=== PATIENT | male | born 1965 | race Caucasian/White ===

== ENCOUNTER 2022-07-08 14:09 | Emergency (ER) | payer MEDICARE, OTHER, SELFPAY ==
--- NOTE | ~2022-07-08 | XR_ITS ---
EXAMINATION: XR CHEST CLINICAL INFORMATION: Shortness of breath. COMPARISON: Chest CTA and radiographs dated 10/04/2017. TECHNIQUE: 2 views of the chest were obtained. FINDINGS: There is generalized hyperinflation. No focal mass or pleural effusions. The heart and mediastinal structures are unremarkable. XR/XR chest 2V IMPRESSION: COPD No acute cardiopulmonary process.
[2022-07-08 14:14] VITALS: BP 111/75; PULSE 85; RESP 16; TEMP 36.1; O2SAT 99; BMI 19.9
--- NOTE | 2022-07-08 14:14 | ED.GENADULT ---
HPI - General Adult General Chief complaint: Upper Respiratory Symptoms <AALIYAH Phan - Last Filed: 07/08/22 14:15> Stated complaint: diff breathing, throat pain? <AALIYAH Phan - Last Filed: 07/08/22 14:15> Time Seen by Provider: 07/08/22 14:20 <AALIYAH Phan - Last Filed: 07/08/22 14:15> History of Present Illness HPI narrative: pt co cough productive of sputum body aches fever runny nose and short of breathe for 1 week, as well as feeling his chest is congested He is not short of breath at this time, he has no chest pain no palpitations no dizziness no fainting no feeling faint no diaphoresis no nausea no vomiting no sore throat no difficulty swallowing no headache no abdominal pain no diarrhea no skin rash <AALIYAH Garcia - Last Filed: 07/09/22 11:58> Related Data Home medications: Previous Rx's Medication Instructions Recorded doxycycline hyclate 100 mg capsule 100 mg PO BID 7 days #14 caps 07/08/22 <AALIYAH Phan - Last Filed: 07/08/22 14:15> Allergies/adverse reactions: Allergies Allergy/AdvReac Type Severity Reaction Status Date / Time naproxen [From NAPROSYN] Allergy Severe STOMACH Unverified 01/08/20 14:46 UPSET <AALIYAH Phan - Last Filed: 07/08/22 14:15> [facility] Past Medical History Source: nursing notes reviewed <AALIYAH Garcia - Last Filed: 07/09/22 11:58> Social History Social History: Social History Advance Directives: No Advance Directives Information Provided: Yes <AALIYAH Phan - Last Filed: 07/08/22 14:15> Physical Exam ED Vital Signs: Vital Signs - 24 hr 07/08/22 14:14 Temperature 96.9 F Pulse Rate 85 Respiratory Rate 16 Blood Pressure 111/75 Pulse Oximetry 99 Oxygen Delivery Method Room Air BMI result Body Mass Index 19.9 <AALIYAH Phan - Last Filed: 07/08/22 14:15> Vital Signs - 24 hr 07/08/22 14:14 Temperature 96.9 F Pulse Rate 85 Respiratory Rate 16 Blood Pressure 111/75 Pulse Oximetry 99 Oxygen Delivery Method Room Air BMI result Body Mass Index 19.9 <AALIYAH aGrcia Last Filed: 07/09/22 11:58> General appearance no acute distress comfortable relaxed cooperative speaking full sentences no respiratory distress Eyes no redness or discharge The sinuses are nontender The pharynx is clear without redness swelling or exudate, voice is normal membranes are moist Neck is supple Chest is clear to auscultation with full symmetric equal breath sounds no adventitious sounds Heart no murmur Abdomen soft nontender Extremities no edema no rash <AALIYAH Garcia Last Filed: 07/09/22 11:58> Course Course Course Narrative: RME performed by Jennifer Flores PA-C. Patient is a 57 year old male presenting to the emergency department with a cough, fever, body aches, and feeling generally unwell. Swabs and CXR ordered. Patient placed back in the waiting room pending room availability and results. <AALIYAH Phan Last Filed: 07/08/22 14:15> RME performed by Jennifer Flores PA-C. Patient is a 57 year old male presenting to the emergency department with a cough, fever, body aches, and feeling generally unwell. Swabs and CXR ordered. Patient placed back in the waiting room pending room availability and results. well appearing pt speaking fuull sentences, vitals nml, resp 16 co cough and sob for 1 week, no sob now chest x negative, normal, covid, flu and strep all negative well appearing pt discharged dx bronchitis <AALIYAH Garcia Last Filed: 07/09/22 11:58> Medications Administered Discontinued Medications Generic Name Dose Route Start Last Admin Trade Name Freq PRN Reason Stop Dose Admin Doxycycline Monohydrate 100 mg 07/08/22 15:40 07/08/22 15:45 Doxycycline Monohydrate 100 Mg Capsule PO 07/08/22 15:41 100 mg ONCE ONE Administration <AALIYAH Phan Last Filed: 07/08/22 14:15> Medications Administered Discontinued Medications Generic Name Dose Route Start Last Admin Trade Name Freq PRN Reason Stop Dose Admin Doxycycline Monohydrate 100 mg 07/08/22 15:40 07/08/22 15:45 Doxycycline Monohydrate 100 Mg Capsule PO 07/08/22 15:41 100 mg ONCE ONE Administration <AALIYAH Garcia Last Filed: 07/09/22 11:58> Medical Decision Making Lab Data Labs: Lab Results 07/08/22 07/08/22 07/08/22 Range/Units 14:24 14:24 14:24 COVID-19 (MELL) Negative (Negative) COVID-19 Clin Com See Note Influenza Type A (RONI) Negative (Negative) Influenza Type B (RONI) Negative (Negative) Influenza A & B Note See Note S. pyogenes GrpA RONI Negative (Negative) <AALIYAH Phan - Last Filed: 07/08/22 14:15> Lab Results 07/08/22 07/08/22 07/08/22 Range/Units 14:24 14:24 14:24 COVID-19 (MELL) Negative (Negative) COVID-19 Clin Com See Note Influenza Type A (RONI) Negative (Negative) Influenza Type B (RONI) Negative (Negative) Influenza A & B Note See Note S. pyogenes GrpA RONI Negative (Negative) <AALIYAH Garcia - Last Filed: 07/09/22 11:58> Discharge Plan Discharge Clinical Impression: Bronchitis <AALIYAH Phan - Last Filed: 07/08/22 14:15> Patient Disposition: Home, Self-Care <AALIYAH Phan - Last Filed: 07/08/22 14:15> Additional Instructions: chest x ray was normal, covid and flu tests negative physical exam and vital signs were all normal we are treating with doxycycline antibiotic for bronchitis return any time for any worse condition, worsening shortness of breathe or chest pain, any concerns follow with your dr next week if not better <AALIYAH Phan - Last Filed: 07/08/22 14:15> Prescriptions: New doxycycline hyclate 100 mg capsule 100 mg PO BID 7 Days Qty: 14 0RF <AALIYAH Phan - Last Filed: 07/08/22 14:15> Interventions: ED Discharge Assessment Last Done: 07/08/22 15:47 <AALIYAH Phan Last Filed: 07/08/22 14:15> Discharge Date/Time: 07/08/22 15:47 <AALIYAH Phan - Last Filed: 07/08/22 14:15>
[2022-07-08 14:54] LABS: IDNOW Serial# 6674DD1D; Strep A Nucleic Acid Negative (Negative)
[2022-07-08 14:59] LABS: COVID-19 Test Negative (Negative); IDNOW Serial# 08D9AD1C
[2022-07-08 15:02] LABS: IDNOW Serial# 9DB6401D; Influenza A Negative (Negative); Influenza B2 Negative (Negative)
[2022-07-08] MEDS: Doxycycline Monohydrate 100 MG CAPSULE PO (15:45)
== END 2022-07-08 15:47 | disposition home or self-care (01) ==
PROVIDERS: Physician Assistant Medical; Emergency Provider Emergency Medicine; PCP Pediatrics
DX: J40 Bronchitis, not specified as acute or chronic (principal); Z20.822 Contact with and (suspected) exposure to COVID-19
CPT/HCPCS: 71046; 87502; 87635; 87651; 99282; 99283

== ENCOUNTER 2022-11-22 16:58 | Emergency (ER) | payer MEDICARE, MEDICAID, SELFPAY ==
--- NOTE | 2022-11-22 17:16 | ED.GENADULT ---
HPI - General Adult General Chief complaint: Extremity Injury, Upper Stated complaint: L hand inj, tendon inj Time Seen by Provider: 11/22/22 17:16 Source: patient Mode of arrival: ambulatory Limitations: no limitations History of Present Illness HPI narrative: Patient is a 57 year old assigned male at with a history of a seizure disorder presenting to the emergency department today with left 4th finger sticking. Patient states that when he wakes up his left 4th finger stuck in a flexed position. Patient states that he can stretch it back out and it stays out throughout the rest of the day. Patient denies any dizziness, lightheadedness, abdominal pain, nausea, vomiting, fever, chills, blurry vision, double vision, loss of vision, chest pain, difficulty breathing, shortness of breath, back pain, night sweats, pain with urination, increased urinary frequency, increased urinary urgency, blood in his urine or stool, syncope or a near syncopal episode, recent trauma or falls, bowel incontinence, bladder incontinence, bowel retention, bladder retention, or any other complaints at this time. Onset (ago): week(s) Location: left (4th finger) Radiation: non-radiation Severity: mild Severity scale (1-10): 3 Quality: aching and dull Pain Consistency: now resolved Relieving factors: none Exacerbating factors: none Associated symptoms: denies other symptoms Treatments prior to arrival: none Related Data Previous Rx's Medication Instructions Recorded doxycycline hyclate 100 mg capsule 100 mg PO BID 7 days #14 caps 07/08/22 prednisone 20 mg tablet 20 mg PO DAILY 7 days #7 tabs 11/22/22 Allergies Allergy/AdvReac Type Severity Reaction Status Date / Time naproxen [From NAPROSYN] Allergy Severe STOMACH Unverified 01/08/20 14:46 UPSET Review of Systems Constitutional: Constitutional: Reports no additional constitutional complaints, Denies chills, Denies fever(s) and Denies night sweats Eyes: Eyes: Reports no additional eye complaints, Denies blurry vision, Denies change in vision, Denies diplopia, Denies eye discharge, Denies loss of vision and Denies eye pain ENT: Denies dizziness Cardiovascular: Cardiovascular: Reports no additional cardiovascular complaints, Denies chest pain, Denies lightheadedness, Denies Loss of Consciousness and Denies dyspnea Respiratory: Respiratory: Reports no additional respiratory complaints and Denies dyspnea Gastrointestinal: Gastrointestinal: Reports no additional gastrointestinal complaints, Denies abdominal pain, Denies melena, Denies hematochezia, Denies change in bowel habits and Denies change in stool character Genitourinary: Genitourinary: Reports no additional male genitourinary complaints, Denies hematuria, Denies oliguria, Denies difficulty urinating, Denies dysuria, Denies urinary frequency, Denies urinary hesitancy, Denies urinary incontinence and Denies urinary urgency Musculoskeletal: Musculoskeletal: Reports no additional musculoskeletal complaints, Denies numbness and Denies tingling Comments: intermittent sticking of the left 4th finger Neurologic: Denies dizziness, Denies loss of vision, Denies numbness and Denies tingling Psychiatric: Psychiatric: Reports no additional psychiatric complaints Endocrine: Endocrine: Reports no additional endocrine complaints Hematologic/Lymphatic: Hematologic/Lymphatic: Reports no additional hematologic/lymphatic complaints Allergic/Immunologic: Allergic/Immunologic: Reports no additional allergic/immunologic complaints PMFSH Past Medical History Attestation statement: The following information was validated with the patient. Source: old records reviewed and nursing notes reviewed Social History Social History Advance Directives: No Advance Directives Information Provided: Yes Physical Exam ED Vital Signs: BMI result Body Mass Index 20.1 Const General: cooperative, no acute distress, alert and awake Nutritional Appearance: well nourished Orientation/consciousness: patient oriented x3 Limitations: no limitations HENMT Head: Yes normal to inspection and Yes atraumatic Ears: hearing grossly normal bilaterally and external ears normal General nose exam: Normal external nose present, no nasal discharge noted and no epistaxis Face and sinus: Yes normal facial exam, No abrasion and No laceration Mouth: Normal oral and palatal mucosa present, no drooling and no muffled voice Eyes General: appearance normal, both eyes and all related structures Periorbital: periorbital findings normal Eyelids: Yes eyelids normal Conjunctivae: conjunctivae normal Pupils: Equal, round and reactive pupils present EOM: EOMs intact bilaterally Neck Neck: Yes normal visual inspection, Yes full ROM and Yes no lymphadenopathy Chest Chest palpation & inspection: normal inspection of the chest Resp Effort & Inspection: normal respiratory effort and able to speak in complete sentences GI Inspection: Yes normal to inspection Neuro General: patient oriented x3 and moves all extremities Cranial nerves: Yes Equal, round and reactive pupils present Cognition (Neuro): normal cognition Motor exam (neuro): 5/5 motor strength present throughout Sensory Exam: Normal double simultaneous stimulation for sensation Coordination: [id number] test normal Extrem General: Yes normal to inspection, Yes full ROM and Yes capillary refill normal Psych Appearance: grossly normal Mental Status: mental status grossly normal Affect: normal affect Attitude: cooperative Thought process: Normal thought process present Thought content: Normal thought content present Insight: Good insight present (Psych) Medical Decision Making Medical Decision Making MDM Narrative: Patient is a 57 year old assigned male at with a history of seizure disorder presenting to the emergency department today with intermittent left 4th finger sticking. Patient's physical exam was unremarkable. I explained my physical exam findings to the patient. I answered all questions asked by the patient. I stressed the importance of the patient taking his medication as prescribed. I stressed the importance of the patient following up with his primary care provider and an orthopedic provider. I stressed the importance of the patient returning to the emergency department immediately if his symptoms were to worsen or if he were to develop any dizziness, shortness of breath, difficulty breathing, chest pain, blurry vision, loss of vision, nausea, vomiting, abdominal pain, fever, chills, back pain, or any other complaints. Patient verbalized agreement and understanding with this treatment plan and discharge. Differential Diagnosis Differential Diagnoses: The differential diagnosis associated with the presentation includes Trigger finger Tendonitis Prescription Management I considered prescription management with: Other (patient prescribed an oral steroid.) Discharge Plan Discharge Clinical Impression: Trigger finger Patient Disposition: Home, Self-Care Instructions: Trigger Finger (ED) Additional Instructions: Follow up with your primary care provider and an orthopedic provider. Return to the emergency department immediately if your symptoms worsen or if you develop any dizziness, shortness of breath, difficulty breathing, chest pain, blurry vision, loss of vision, nausea, vomiting, abdominal pain, fever, chills, back pain, or any other complaints. Prescriptions: New prednisone 20 mg tablet 20 mg PO DAILY 7 Days Qty: 7 0RF No Action doxycycline hyclate 100 mg capsule 100 mg PO BID 7 Days Qty: 14 0RF Referrals: [facility] [Provider Group] (Call to establish and follow up with an orthopedic provider.) Adair Mejias DO [Primary Care Provider] - Stand Alone Forms: Work/School Release Interventions: ED Discharge Assessment Last Done: 11/22/22 17:37 Discharge Date/Time: 11/22/22 17:38 Print Language: Vietnamese
[2022-11-22 17:34] VITALS: BMI 20.1
== END 2022-11-22 17:38 | disposition home or self-care (01) ==
LOC: HO.ED 17:33
PROVIDERS: Emergency Provider Emergency Medicine Emergency Medical Services; PCP Pediatrics
DX: M65.342 Trigger finger, left ring finger (principal)
CPT/HCPCS: 99283

== ENCOUNTER 2024-01-12 14:52 | Emergency (ER) | payer MEDICARE, MEDICAID, SELFPAY ==
--- NOTE | ~2024-01-12 | XR_ITS ---
EXAMINATION: XR CHEST CLINICAL INFORMATION: COVID with dyspnea COMPARISON: Chest radiograph 07/08/2022 TECHNIQUE: 2 views of the chest were obtained. FINDINGS: No significant abnormality is noted involving the heart, lungs, mediastinum, bony thorax or soft tissues. XR/XR chest 2V IMPRESSION: Unremarkable examination. Electronically signed by: Cole Coy MD 01/12/2024 03:55 PM EDT RP
[2024-01-12 15:06] VITALS: BP 117/67; PULSE 63; RESP 18; TEMP 36.7; O2SAT 96; BMI 21.3
--- NOTE | 2024-01-12 15:10 | ED.GENADULT ---
HPI - General Adult General Chief complaint: Upper Respiratory Symptoms Stated complaint: labored breathing, antibiotics not working Time Seen by Provider: 01/12/24 17:38 Source: patient Mode of arrival: ambulatory Limitations: no limitations History of Present Illness ED Provider: leonora VALDEZ narrative: Patient is a 58-year-old male presenting to the emergency department with complaint of ongoing cough and shortness of breath. He tested positive for COVID on 12/30 and was symptomatic for 2 days prior to that. States he was prescribed Paxlovid which he did not complete full course of. He was then started on a Z-Orville as well as Augmentin. States he has 2 days of Augmentin left to take. Feels his symptoms are not improving on any of these medications. Primary complaint is cough during the night which is preventing him from sleeping. States he has not been prescribed any cough medications and he is hesitant to purchase any [id number] cough medications as he is unsure if these will interact with his antiepileptic medications. Denies chest pain or palpitations. Denies fevers. Called PCP and was referred to the ED. MD complaint: cough Onset (ago): week(s) Treatments prior to arrival: other Related Data Previous Rx's ?Medication ?Instructions ?Recorded doxycycline hyclate 100 mg capsule 100 mg PO BID 7 days #14 caps 07/08/22 prednisone 20 mg tablet 20 mg PO DAILY 7 days #7 tabs 11/22/22 benzonatate 100 mg capsule 100 mg PO TID PRN cough #20 caps 01/12/24 Allergies Allergy/AdvReac Type Severity Reaction Status Date / Time naproxen [From NAPROSYN] Allergy Severe STOMACH Verified 01/12/24 15:09 UPSET Review of Systems Review of Systems: As per HPI. Yes all other systems are reviewed and are negative Constitutional: Constitutional: Reports as per HPI [facility] Social History Social History Advance Directives: No Advance Directives Information Provided: No Do you have a plan to hurt others: No Plan Physical Exam ED Vital Signs: Vital Signs - 24 hr 01/12/24 15:06 Temperature 98.0 F Pulse Rate 63 Respiratory Rate 18 Blood Pressure 117/67 Pulse Oximetry 96 Oxygen Delivery Method Room Air BMI result Body Mass Index 21.3 Vital signs have been reviewed and appear to be correct. Blood pressure normal. Heart rate normal. Respiratory rate normal. Temperature normal. Oxygen saturation normal. Const General: cooperative, healthy appearing and no acute distress Orientation/consciousness: oriented to person, oriented to place, oriented to time and patient oriented x3 Limitations: no limitations HENMT Head: Yes normocephalic and Yes atraumatic Ears: external ears normal General nose exam: Normal external nose present Face and sinus: Yes face symmetric Mouth: oropharynx normal and moist mucous membranes Throat: Yes uvula midline Eyes Pupils: Equal, round and reactive pupils present Neck Neck: Yes normal visual inspection and Yes supple Resp Effort & Inspection: normal respiratory effort and able to speak in complete sentences Auscultation: clear to auscultation bilaterally Cardio Rate: regular rate Rhythm: regular rhythm Heart sounds: S1 normal heart sound present and S2 normal heart sound present GI Palpation (GI): Soft to palpation and nontender Auscultation: normoactive bowel sounds General: Yes no CVA tenderness Back/Spine/Pelvis Back: no CVA tenderness Skin General skin exam: elasticity normal and turgor normal Neuro General: oriented to person, oriented to place, oriented to time, patient oriented x3, moves all extremities, no focal motor deficits and CN's II-XI intact bilaterally Cranial nerves: Yes Equal, round and reactive pupils present Cognition (Neuro): normal cognition Extrem General: Yes full ROM, Yes no pedal edema and Yes no calf tenderness Psych Mental Status: mental status grossly normal Affect: normal affect Thought process: Normal thought process present Course Course Course Narrative: This is a rapid medical exam performed by Zenaida Diaz NP: Additional HPI, ROS, PE not included below will be deferred to primary provider. Patient is a 58-year-old male presenting to the emergency department with complaint of ongoing shortness of breath and cough, orthopnea after being diagnosed with COVID on 12/30. Took antibiotics, symptoms not improving. Plan: X-ray Medical Decision Making Medical Decision Making MDM Narrative: Patient is a 58-year-old male presenting to the emergency department with complaint of ongoing cough and shortness of breath. On exam patient is awake, A+Ox3, VS WNL, afebrile, normal neurological exam without focal deficits, physical exam findings as above. Given reported symptoms and physical exam findings, initial differential includes ongoing Covid symptoms, bronchitis, pneumonia. Labs unremarkable. X-ray chest notable for no evidence of pneumonia. My interpretation is in agreement with the radiologist's interpretation. Patient updated on results and all questions answered. Physical exam unremarkable, patient in no distress, no coughing noted during exam. Lungs clear throughout. Discussed with patient that symptoms are likely due to ongoing COVID infection and his symptoms are not improving on antibiotics because his symptoms are due to a viral infection. Will send prescription for benzonatate as patient's primary complaint is nighttime coughing. Also recommended that he use honey for his cough as this will not interact with any of his medications. Instructed patient to follow with PCP. Return precautions discussed at bedside. Patient verbalized understanding of and agreement with plan. Differential Diagnosis Differential Diagnoses: The differential diagnosis associated with the presentation includes As per [facility]. Lab Data [facility] Lab Attestation statement: I reviewed the patient's lab results. As per [facility]. 01/12/24 15:28 01/12/24 15:28 Labs: Lab Results 01/12/24 Range/Units 15:28 WBC 8.5 (4.8-10.8) X10*3/uL RBC 4.42 L (4.60-5.80) X10*6/uL Hgb 13.6 L (14.0-18.0) g/dl Hct 42.0 (42.0-52.0) % MCV 95.0 (80.0-98.0) fL MCH 30.8 (27.0-33.0) pg MCHC 32.4 (31.0-36.0) g/dl RDW 12.7 (11.0-16.0) % Plt Count 340 (160-400) X10*3/uL MPV 9.2 L (9.4-12.4) fL Immature Gran % (Auto) 0.4 (0.0-0.4) % Neut % (Auto) 67.5 (45-73) % Lymph % (Auto) 23.6 (20-40) % [place] % (Auto) 5.7 (2-11) % Eos % (Auto) 2.2 (0-4) % Baso % (Auto) 0.6 (0-2) % Lymph # (Auto) 2.0 (1.2-4.9) X10*3/uL [place] # (Auto) 0.5 (0.1-1.2) X10*3/uL Eos # (Auto) 0.2 (0.0-0.4) X10*3/uL Baso # (Auto) 0.1 (0.0-0.2) X10*3/uL Abs Immat Gran (auto) 0.03 (0.00-0.03) X10*3/uL Absolute Neuts (auto) 5.7 (2.0-8.3) x10*3/uL Absolute Nucleated RBC 0.000 (0.0-0.012) X10*3/uL Nucleated RBC % (auto) 0.0 (0.0-0.2) /100WBC Sodium 141 (135-145) mmol/L Potassium 4.3 (3.3-5.1) mmol/L Chloride 110 H (96-108) mmol/L Carbon Dioxide 24 (22-29) mmol/L Anion Gap 11 L (12-20) BUN 14 (9-16) mg/dL Creatinine 1.07 (0.5-1.4) mg/dL Estim Creat Clear Calc 71.7 Estimated GFR > 60 Random Glucose 100 (60-115) mg/dL Calcium 9.5 (8.4-10.2) mg/dL Independent Interpretation I performed an independent interpretation of an: Plain X-Ray Interpretation: Chest x-ray notable for no evidence of pneumonia. Radiology Impression Discussion of test interpretation with radiology: I have reviewed the radiologist's reading. Radiologist Impression: XR/XR chest 2V IMPRESSION: Unremarkable examination. External Record Review External record reviewed: Inpatient record, Office record and Outpatient record Prescription Management I considered prescription management with: Other Discharge Plan Discharge Clinical Impression: Cough Patient Disposition: Home, Self-Care Instructions: Acute Cough (ED), COVID-19 (Coronavirus Disease 2019) (ED) Additional Instructions: You were evaluated in the emergency department today for cough and shortness of breath. Your symptoms are likely due to your recent COVID infection. You are being prescribed benzonatate which you can take every 8 hours as needed for cough. You can also take one teaspoon of honey as needed, but do not heat the honey as this decreases the antiviral properties. Follow up with your primary care provider. Return if you develop worsening shortness of breath, chest pain, palpitations, fever 100.4? F or greater or any other concerning symptoms. Prescriptions: New benzonatate 100 mg capsule 100 mg PO TID PRN (Reason: cough) Qty: 20 0RF No Action doxycycline hyclate 100 mg capsule 100 mg PO BID 7 Days Qty: 14 0RF prednisone 20 mg tablet 20 mg PO DAILY 7 Days Qty: 7 0RF Print Language: Irish
[2024-01-12 15:32] LABS: Basophils Absolute Auto 0.1 X10*3/uL (0.0-0.2); Basophils Percent Auto 0.6 % (0-2); Eosinophils Absolute Auto 0.2 X10*3/uL (0.0-0.4); Eosinophils Percent Auto 2.2 % (0-4); Hemoglobin 13.6 g/dl (14.0-18.0); Imm Gran Abs Auto 0.03 X10*3/uL (0.00-0.03); Imm Gran Pct Auto 0.4 % (0.0-0.4); Lymphocytes Percent Auto 23.6 % (20-40); MANUAL DIFF FLAG NO; Mean Corpuscular HGB Conc 32.4 g/dl (31.0-36.0); Mean Corpuscular Hemoglobin 30.8 pg (27.0-33.0); Mean Platelet Volume 9.2 fL (9.4-12.4); Monocytes Absolute Auto 0.5 X10*3/uL (0.1-1.2); Monocytes Percent Auto 5.7 % (2-11); Neutrophils Absolute Auto 5.7 x10*3/uL (2.0-8.3); Neutrophils Percent Auto 67.5 % (45-73); Platelet Count 340 X10*3/uL (160-400); Red Blood Count 4.42 X10*6/uL (4.60-5.80); Red Cell Distribution Width 12.7 % (11.0-16.0); White Blood Count 8.5 X10*3/uL (4.8-10.8)
[2024-01-12 15:47] LABS: Anion Gap 11 (12-20); Blood Urea Nitrogen 14 mg/dL (9-16); Calcium 9.5 mg/dL (8.4-10.2); Carbon Dioxide 24 mmol/L (22-29); Chloride 110 mmol/L (96-108); Creatinine Clr Calc Pharmacy 71.7; Estimated Glomerular Filt Rate > 60; Glucose Random 100 mg/dL (60-115); Potassium 4.3 mmol/L (3.3-5.1); Sodium 141 mmol/L (135-145)
[2024-01-12 18:17] VITALS: BP 117/67; PULSE 78; RESP 20; TEMP 36.7; O2SAT 98
== END 2024-01-12 18:18 | disposition home or self-care (01) ==
PROVIDERS: Registered Nurse Emergency; Emergency Provider Internal Medicine; PCP Pediatrics
DX: R05.9 Cough, unspecified (principal); R06.02 Shortness of breath; Z91.148 Patient's other noncompliance with medication regimen for other reason; Z86.16 Personal history of COVID-19
CPT/HCPCS: 36415; 71046; 80048; 85025; 99283

== ENCOUNTER 2024-09-28 16:16 | Emergency (ER) | payer MEDICARE, MEDICAID, SELFPAY ==
[2024-09-28 16:18] VITALS: BP 127/74; PULSE 55; RESP 18; TEMP 36.6; O2SAT 98; BMI 23.7
--- NOTE | 2024-09-28 16:19 | ED.EAR ---
HPI - Ear Problem General Chief complaint: Ear Problems Stated complaint: R ear pain - States [facility] called [facility] Time Seen by Provider: 09/28/24 19:23 Source: patient Limitations: no limitations History of Present Illness ED Provider: Gabriela Diallo PA-C HPI Narrative: 59-year-old male presents with right ear pain x3 weeks. Patient states he recently had brain surgery at [facility], August 30. He developed discomfort in the right ear since the surgery. Over the past few days, the pressure seemed more pronounced. Denies drainage from the ear or fever. Denies having seasonal allergies. Related Data Previous Rx's ?Medication ?Instructions ?Recorded doxycycline hyclate 100 mg capsule 100 mg PO BID 7 days #14 caps 07/08/22 prednisone 20 mg tablet 20 mg PO DAILY 7 days #7 tabs 11/22/22 benzonatate 100 mg capsule 100 mg PO TID PRN cough #20 caps 01/12/24 Allergies Allergy/AdvReac Type Severity Reaction Status Date / Time naproxen [From NAPROSYN] Allergy Severe STOMACH Verified 09/28/24 16:21 UPSET Review of Systems Review of Systems: Yes all other systems are reviewed and are negative Constitutional: Constitutional: Denies fatigue, Denies fever(s) and Denies headache(s) ENT: Denies dizziness, Denies ear discharge, Reports otalgia, Denies headache(s), Denies nasal congestion and Denies sore throat Gastrointestinal: Gastrointestinal: Denies nausea and Denies vomiting Neurologic: Denies dizziness and Denies headache(s) Endocrine: Endocrine: Denies fatigue PMFSH Past Medical History Attestation statement: The following information was validated with the patient. Social History Social History Advance Directives: No Advance Directives Information Provided: No Do you have a plan to hurt others: No Plan Physical Exam Vital Signs: Vital Signs: Last Vital Signs Temp 97.5 F 09/28/24 19:39 Pulse 52 09/28/24 19:39 Resp 18 09/28/24 19:39 BP 115/65 09/28/24 19:39 Pulse Ox 98 09/28/24 19:39 O2 Del Method Room Air 09/28/24 19:39 BMI result Body Mass Index 23.7 Const: Other: Alert Orientation/consciousness: patient oriented x3 HEENT: Other: Left TM is translucent, can detect the ossicles, no overlying erythema, the external ear canal is free from erythema or exudate, no tragal tenderness, exam was essentially the same for the right TM, however it is slightly dull Resp: Effort & Inspection: normal respiratory effort Cardio: Other: Normal peripheral perfusion Skin: Other: Warm dry no rash Neuro: General: patient oriented x3, gait normal, no focal motor deficits and CN's II-XI intact bilaterally Psych: Other: Cooperative Course Course Course Narrative: This is a Rapid Medical Exam performed in triage by Marylou Tate PA-C. Full HPI, ROS and PE to be performed by primary ED provider. 59 yo M w/PMHx Epilepsy s/p Temporal Lobe Brain Resection at [facility] 3 weeks ago presenting to the ED c/o R ear pain, feels blocked & achy/throbbing x 1 wk. Has been taking Tylenol/Ibuprofen w/o relief. Denies drainage from ear PE: +healing surgical wound to R side of face. TMs are wnl Plan: labs, SARs, +/- imaging Medical Decision Making Medical Decision Making MDM Narrative: 59-year-old male presents with right ear pain x3 weeks. Patient states he recently had brain surgery at [facility], August 30. He developed discomfort in the right ear since the surgery. Over the past few days, the pressure seemed more pronounced. Denies drainage from the ear or fever. Denies having seasonal allergies. Problem: Recent brain surgery History: Per patient I have considered the following differential diagnoses: Mastoiditis, om, OE, serous otitis Plan: Patient has simple fluid within the inner ear, there was no evidence of infection, furthermore he has had symptoms for 3 weeks. We will send with home care instructions, screening labs including a viral panel were ordered from triage I have independently reviewed the following tests: Labs: No leukocytosis, not anemic, no electrolyte abnormality, viral panel negative Lab Data 09/28/24 16:43 09/28/24 16:43 Labs: Lab Results 09/28/24 Range/Units 16:43 WBC 6.6 (4.8-10.8) X10*3/uL RBC 4.27 L (4.60-5.80) X10*6/uL Hgb 13.4 L (14.0-18.0) g/dl Hct 41.7 L (42.0-52.0) % MCV 97.7 (80.0-98.0) fL MCH 31.4 (27.0-33.0) pg MCHC 32.1 (31.0-36.0) g/dl RDW 13.0 (11.0-16.0) % Plt Count 303 (160-400) X10*3/uL MPV 9.4 (9.4-12.4) fL Immature Gran % (Auto) 0.2 (0.0-0.4) % Neut % (Auto) 60.0 (45-73) % Lymph % (Auto) 30.6 (20-40) % [place] % (Auto) 5.6 (2-11) % Eos % (Auto) 2.7 (0-4) % Baso % (Auto) 0.9 (0-2) % Lymph # (Auto) 2.0 (1.2-4.9) X10*3/uL [place] # (Auto) 0.4 (0.1-1.2) X10*3/uL Eos # (Auto) 0.2 (0.0-0.4) X10*3/uL Baso # (Auto) 0.1 (0.0-0.2) X10*3/uL Abs Immat Gran (auto) 0.01 (0.00-0.03) X10*3/uL Absolute Neuts (auto) 3.9 (2.0-8.3) x10*3/uL Absolute Nucleated RBC 0.000 (0.0-0.012) X10*3/uL Nucleated RBC % (auto) 0.0 (0.0-0.2) /100WBC ESR 9 (0-15) MM/HR PT 12.5 H (10.9-12.4) SEC INR 1.1 (0.9-1.1) Sodium 145 (135-145) mmol/L Potassium 4.0 (3.3-5.1) mmol/L Chloride 115 H (96-108) mmol/L Carbon Dioxide 22 (22-29) mmol/L Anion Gap 12 (12-20) BUN 18 H (9-16) mg/dL Creatinine 1.11 (0.5-1.4) mg/dL Estim Creat Clear Calc 76.3 Estimated GFR > 60 Random Glucose 93 (60-115) mg/dL Calcium 9.3 (8.4-10.2) mg/dL Magnesium 2.4 (1.6-2.6) mg/dL Total Bilirubin 0.2 (0.0-1.0) mg/dL Direct Bilirubin < 0.2 (0.0-0.5) mg/dL AST 20 (5-37) U/L ALT 18 (0-40) U/L Alkaline Phosphatase 67 (39-117) U/L C-Reactive Protein 0.21 (< or = 0.50) mg/dL Total Protein 7.0 (6.5-8.0) g/dL Albumin 4.3 (3.5-5.0) g/dL Influenza Type A (PCR) NEGATIVE (Negative) Influenza Type B (PCR) NEGATIVE (Negative) RSV RNA Qual (PCR) NEGATIVE (Negative) SARS-CoV-2 RNA (RT-PCR) NEGATIVE (Negative) Discharge Plan Discharge Clinical Impression: Acute serous otitis media of right ear Patient Disposition: Home, Self-Care Instructions: Fluid In The Ear (Serous Otitis Media) (ED) Additional Instructions: You were found to have fluid within the inner ear, essentially this is congestion. See home care instructions. Use [id number] Zyrtec for several weeks, this will help to alleviate the fluid that is present. To note, all of the screening labs that were obtained were normal, including a viral panel; you were screened for influenza, RSV and COVID. Follow up with your primary care provider as needed. Prescriptions: No Action doxycycline hyclate 100 mg capsule 100 mg PO BID 7 Days Qty: 14 0RF prednisone 20 mg tablet 20 mg PO DAILY 7 Days Qty: 7 0RF benzonatate 100 mg capsule 100 mg PO TID PRN (Reason: cough) Qty: 20 0RF Print Language: Estonian
[2024-09-28 16:52] LABS: MANUAL DIFF FLAG NO
[2024-09-28 16:53] LABS: Basophils Absolute Auto 0.1 X10*3/uL (0.0-0.2); Basophils Percent Auto 0.9 % (0-2); Eosinophils Absolute Auto 0.2 X10*3/uL (0.0-0.4); Eosinophils Percent Auto 2.7 % (0-4); Hematocrit 41.7 % (42.0-52.0); Hemoglobin 13.4 g/dl (14.0-18.0); Imm Gran Abs Auto 0.01 X10*3/uL (0.00-0.03); Imm Gran Pct Auto 0.2 % (0.0-0.4); Lymphocytes Percent Auto 30.6 % (20-40); Mean Corpuscular HGB Conc 32.1 g/dl (31.0-36.0); Mean Corpuscular Hemoglobin 31.4 pg (27.0-33.0); Mean Corpuscular Volume 97.7 fL (80.0-98.0); Mean Platelet Volume 9.4 fL (9.4-12.4); Monocytes Absolute Auto 0.4 X10*3/uL (0.1-1.2); Monocytes Percent Auto 5.6 % (2-11); Neutrophils Absolute Auto 3.9 x10*3/uL (2.0-8.3); Platelet Count 303 X10*3/uL (160-400); Red Blood Count 4.27 X10*6/uL (4.60-5.80); White Blood Count 6.6 X10*3/uL (4.8-10.8)
[2024-09-28 17:03] LABS: INTERNATIONAL NORM RATIO 1.1 (0.9-1.1); Prothrombin Time 12.5 SEC (10.9-12.4)
[2024-09-28 17:13] LABS: Alanine Aminotransferase 18 U/L (0-40); Albumin Level 4.3 g/dL (3.5-5.0); Alkaline Phosphatase 67 U/L (39-117); Anion Gap 12 (12-20); Aspartate Amino Transferase 20 U/L (5-37); Bilirubin Direct < 0.2 mg/dL (0.0-0.5); Bilirubin Total 0.2 mg/dL (0.0-1.0); Blood Urea Nitrogen 18 mg/dL (9-16); C Reactive Protein 0.21 mg/dL (< or = 0.50); Calcium 9.3 mg/dL (8.4-10.2); Carbon Dioxide 22 mmol/L (22-29); Chloride 115 mmol/L (96-108); Creatinine Clr Calc Pharmacy 76.3; Estimated Glomerular Filt Rate > 60; Glucose Random 93 mg/dL (60-115); Magnesium 2.4 mg/dL (1.6-2.6); Sodium 145 mmol/L (135-145)
[2024-09-28 17:31] LABS: Influenza A PCR NEGATIVE (Negative); Influenza B PCR NEGATIVE (Negative); Resp Syncy Virus RNA Qual PCR NEGATIVE (Negative); SARS COV2 PCR INHOUSE NEGATIVE (Negative)
[2024-09-28 18:17] LABS: Erythrocyte Sedimentation Rate 9 MM/HR (0-15)
[2024-09-28 19:39] VITALS: BP 115/65; PULSE 52; RESP 18; TEMP 36.4; O2SAT 98
[2024-09-28 20:59] VITALS: BP 115/65; PULSE 52; RESP 18; TEMP 36.4; O2SAT 98
== END 2024-09-28 21:02 | disposition home or self-care (01) ==
PROVIDERS: Physician Assistant; Emergency Provider Emergency Medicine; PCP Pediatrics
DX: H65.02 Acute serous otitis media, left ear (principal); H92.01 Otalgia, right ear; Z48.811 Encounter for surgical aftercare following surgery on the nervous system; Z03.818 Encounter for observation for suspected exposure to other biological agents ruled out; R79.1 Abnormal coagulation profile; Z79.899 Other long term (current) drug therapy
CPT/HCPCS: 0241U; 80048; 80076; 83735; 85025; 85610; 85652; 86140; 99283; 99284

== ENCOUNTER 2024-11-05 15:50 | Emergency (ER) | payer MEDICARE, MEDICAID, SELFPAY ==
[2024-11-05 17:03] VITALS: BP 111/68; PULSE 66; RESP 16; TEMP 37.1; O2SAT 98; BMI 21.5
--- NOTE | 2024-11-05 17:04 | ED.GENADULT ---
HPI - General Adult General Chief complaint: Eye Problems Stated complaint: Object In R Eye Related Data Previous Rx's ?Medication ?Instructions ?Recorded doxycycline hyclate 100 mg capsule 100 mg PO BID 7 days #14 caps 07/08/22 prednisone 20 mg tablet 20 mg PO DAILY 7 days #7 tabs 11/22/22 benzonatate 100 mg capsule 100 mg PO TID PRN cough #20 caps 01/12/24 Allergies Allergy/AdvReac Type Severity Reaction Status Date / Time naproxen (From NAPROSYN) Allergy Severe STOMACH Verified 11/05/24 17:06 UPSET [facility] Social History Social History Advance Directives: No Advance Directives Information Provided: No Do you have a plan to hurt others: No Plan Physical Exam ED Vital Signs: Vital Signs - 24 hr 11/05/24 17:03 Temperature 98.7 F Pulse Rate 66 Respiratory Rate 16 Blood Pressure 111/68 Pulse Oximetry 98 Oxygen Delivery Method Room Air BMI result Body Mass Index 21.5 Course Course Course Narrative: This is a Rapid Medical Examination (RME) performed by Sg Adams PA-C in triage. Full HPI, ROS, assessment and treatment plan per primary provider in the Main ED. Hx: 59 yo M here for concern of Fb in R eye x few days. 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 healing well. over the last few days felt like there was a FB in his right lower eyelid. feels like he may have gotten something in his eye during physical therapy. PE/vitals: No obvious foreign body to right eye. Plan: Tetracaine, fluorescein, visual acuity Reevaluation(s) Reevaluation #1: Patient left the emergency department before myself or any of the other clinicians could review or explain physical exam findings, test results, need or lack there of for additional testing, treatment options, or a treatment plan. Discharge Plan Discharge Clinical Impression: Eye pain Patient Disposition: Left W/O Completing Treatment Prescriptions: No Action doxycycline hyclate 100 mg capsule 100 mg PO BID 7 Days Qty: 14 0RF prednisone 20 mg tablet 20 mg PO DAILY 7 Days Qty: 7 0RF benzonatate 100 mg capsule 100 mg PO TID PRN (Reason: cough) Qty: 20 0RF Discharge Date/Time: 11/05/24 22:53
--- OUTSIDE RECORDS SUMMARY | 2024-11-05 22:49 | XMS_ITS | Clinical Summary ---
Author Organization [employer] Address [address] [place] [address] Care Team Providers Care Mailroom Clerk Name Role Phone Unavailable Primary Care Provider Unavailabl e Allergies No known active allergies Medications acetaminophen (Tylenol) 325 MG tablet Take 650 mg by mouth. 2 Active ALPRAZolam (Xanax) 0.5 MG tablet Take 0.5 mg by mouth 2 times daily. 4 Active aspirin 325 MG tablet Take 325 mg by mouth if needed each day. Active clonazePAM (KlonoPIN) 2 MG tablet Take 2 mg by mouth at bedtime. 4 Active FLUoxetine (PROzac) 20 MG capsule Take 40 mg by mouth Once per day. 4 Active ibuprofen 800 MG tablet TAKE 1 TABLET(800 MG) BY MOUTH THREE TIMES DAILY NEEDED 1 Active levETIRAcetam (Keppra) 1000 MG tablet Take 1,000 mg by mouth. 2 Active melatonin 3 MG tablet Take 6 mg by mouth. 2 Active pantoprazole (ProtoNix) 40 MG EC tablet Take 40 mg by mouth if needed each day. 1 Active zonisamide (Zonegran) 100 MG capsule Take 200 mg by mouth 2 times daily. 4 Active Sod Fluoride-Potass ium Nitrate 1.1-5 % pasteIndication s:Dental caries Benedict teeth for 2 minutes, morning and night. Spit, do not rinse. Do not eat or drink anything for 30 minutes following brushing. 112 g 3 4 Active acetaminophen (Tylenol) 500 MG tablet Take 1 tablet (500 mg) by mouth every 6 (six) hours if needed for mild pain for up to 20 doses. 20 tablet Active Active Problems Problem Noted Date Diagnosed Date Dental plaque 12/13/2023 Dental staining 12/13/2023 Dental calculus 12/13/2023 Depression 11/15/2023 Overview (11/15/2023): Followed by O[facility] Sears in [place]. He had seen Dr. Amanda Landaverde for Psychotherapy Last Assessment & Plan: Improved on current medication, mostly now seems to be secondary to his medical issues causing depressed mood. Continue current medication with no changes at this time. Failed back syndrome 11/15/2023 Overview (11/15/2023): Status post laminectomy x2-1992 and 1993. History of spinal cord stimulator implant 1998, removed 6m after. Followed by [facility] for episodic cortisone shots Last Assessment & Plan: Continues to have ongoing back issues, follows with [facility] pain management, with good control of symptoms, however patient unable to work and has not changed. Form completed with patient in office today. History of duodenal ulcer 11/15/2023 Overview (11/15/2023): diagnosed by endoscopy around 1984 History of malignant melanoma 11/15/2023 Overview (11/15/2023): Status post sentinel node removal right axilla and right groin which were negative 07/02. Followed by Dr. [facility] Anxiety disorder 11/15/2023 Overview (11/15/2023): Followed by [facility] Sears in [place], he has seen Dr. 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 Referral placed to urology for evaluation. Seizure 06/09/2021 Overview (11/15/2023): Last Assessment & Plan: No consensus plan for what to do about need for further testing in setting of many subclinical events and now the need for an observed home EEG. Will coordinate care with his Neurology team to discuss and plan appropriate management in this difficult case. Psoriasis 02/04/2019 Overview (11/15/2023): Last Assessment & Plan: Stable well-controlled on current medication, no change at this time. Continue monitoring. COPD with emphysema 09/24/2017 Overview (11/15/2023): Pulmonary funcion tests 07/08/13 revealed moderdate to severe obstructive physiology with an excellent bronchodilator response; no restriction or air trapping seen; minimal reduction in diffusing capacity; consistent with moderate to severe COPD- A or emphysema with an element of asthma. Formerly followed by Dr. Kerr Encounters Date Type Department Care Team Description 10/15/2024 11:30 AM EDT Office Visit [facility]ULT [facility] [address] [place] [address] Caleb Russo, BEAR Pain, dental (Primary Dx) from Last 3 Months Social History Tobacco Use Types Packs/Day Years Used Date Smoking Tobacco: Former Cigarettes Smokeless Tobacco: Never Tobacco Cessation:Counseling Given: Not Answered Alcohol Use Standard Drinks/Week Comments Never 0 (1 standard drink = 0.6 oz pur e alcohol) Sex and Gender Information Value Date Recorded Sex Assigned at Male 02/20/2022 10:22 AM EDT Legal Sex Male 10:22 AM EDT Gender Identity Male 02/20/2022 10:22 AM EDT Sexual Orientation Choose not to disclose 2021 10:22 AM EDT Last Filed Vital Signs Vital Sign Reading Time Taken Comments Blood Pressure 102/76 10/15/2024 11:36 AM EDT Pulse 65 12/13/2023 8:03 AM EDT Temperature - - Respiratory Rate - - Oxygen Saturation - - Inhaled Oxygen Concentration - - Weight - - Height - - Body Mass Index - - Plan of Treatment Health Maintenance Due Date Last Done Comments CT Colonography 1965 Colonoscopy 1965 Colorectal Cancer Screening 1965 Depression Screening 1965 FIT DNA/Cologuard 1965 FIT 1965 FOBT 1965 HIV Screening 1965 Lipid Panel 1965 SDOH Screening 1965 Sigmoidoscopy 1965 Disability Screening 1965 Alcohol/Substance Use Screening 1977 Hepatitis C Screening 1983 Hepatitis B Vaccines (1 of 3 - 19+ 3-dose series) 1984 Pneumococcal Vaccine: 50+ Years (3 of 3 - PCV20 or PCV21) 11/28/2020 11/29/2015, 04/23/2010 COVID-19 Vaccine ( season) 2023 04/04/2022, 11/08/2021, 02/18/2021, Additional history exists Dental Oral Exam 05/18/2024 11/15/2023, , 01/28/2020, Additional history exists Dental Prophylaxis 06/15/2024 12/13/2023, 11/08/2020 Influenza Vaccine (#1) 2024 , 05/13/2021, 04/29/2020, Additional history exists Tobacco Screening 10/15/2025 10/15/2024 Dental X-Ray: Bitewings 10/16/2025 10/16/19, 11/15/2023, 02/14/2021, Additional history exists Dental X-Ray: Full Mouth 11/15/2026 11/15/2023, 02/22 DTaP/Tdap/Td Vaccines (2 - Td or Tdap) 02/04/2029 02/04/2019 RSV Patients and Patients Aged 60 years or older (1 - 1-dose 75+ series) 2040 Zoster Vaccines Completed 09/18/2017, 07/10/2017 HIB Vaccines Aged Out No longer eligi ble based on patient's age to complete this topic HPV Vaccines Aged Out No longer eligi ble based on patient's age to complete this topic Hepatitis A Vaccines Aged Out No long er eligible based on patient's age to complete this topic IPV Vaccines Aged Out No longer eligi ble based on patient's age to complete this topic Meningococcal B Vaccine Aged Out No l onger eligible based on patient's age to complete this topic Meningococcal Vaccine Aged Out No tay mathew eligible based on patient's age to complete this topic RSV under 20 months Aged Out No longe r eligible based on patient's age to complete this topic Rotavirus Vaccines Aged Out No longer eligible based on patient's age to complete this topic Procedures Procedure Name Priority Date/Time Associated Diagnosis Comments CASE PRESENTATION, DETAILED AND EXTENSIVE TREATMENT PLANNING Routine 10/15/2024 11:30 AM EDT Pain, dental BITEWING - SINGLE RADIOGRAPHIC IMAGE Routine 10/15/2024 11:30 AM EDT Pain, dental INTRAORAL - PERIAPICAL FIRST RADIOGRAPHIC IMAGE Routine 10/15/2024 11:30 AM EDT Pain, dental LIMITED ORAL EVALUATION - PROBLEM FOCUSED Routine 10/15/2024 11:30 AM EDT Pain, dental PROPHYLAXIS - ADULT Routine 12/13/2023 8 :00 AM EDT INTRAORAL - COMPLETE SERIES OF RADIOGRAPHIC IMAGES Routine 11/15/2023 1:30 PM EDT Dental caries PERIODIC ORAL EVALUATION - ESTABLISHED PATIENT Routine 11/15/2023 1:30 PM EDT Dental caries from Last 3 Months or Most Recently Relevant to Health Maintenance Insurance [facility] MEDICAID STAND ADULT * Guarantor: Manny Kearns Account Type Relation to Patient Date of Phone Billing Address Personal/Family Self [address] [place]
== END 2024-11-05 22:53 | disposition left against medical advice (07) ==
LOC: HO.ED 22:48
PROVIDERS: Emergency Provider Emergency Medicine; PCP Pediatrics
DX: H57.11 Ocular pain, right eye (principal)
CPT/HCPCS: 99281

== ENCOUNTER 2025-03-22 14:49 | Emergency (ER) | payer MEDICARE, MEDICAID, SELFPAY ==
--- OUTSIDE RECORDS SUMMARY | 2021-10-20 11:45 | XMS_ITS | Encounter Summary ---
Author Organization [facility] Address [address] [place] [address] Phone Care Team Providers Care Artillery Officer Name Role Phone Willy Metcalf MD Unavailable [phone] Adair Mejias DO Primary Care Provider Wanda Stern RN Unavailable [phone] Encounter Details Date Type Department Care Team (Late st Contact Info) Description 10/20/2021 12:45 PM EDT Hospital Encounter [facility] Department of Neurology 55 [facility], [address] [place] [address], [address] [place] [address] Blake Espinosa MD [email or web address] Social History Tobacco Use Types Packs/Day Years [...] high school, GED, job training, learning the Beninese language, technical skills, or developing parenting skills)? [...] your housing situation today? I have paco bullock 09/09/2024 How many times have you move [...] on file documented as of this encounter Functional Status * Calculated C-SSRS Risk Score (Lifetime/Recent) Answer Date of Assessment Author No Risk Indicated 09/09/2024 3:02 PM EDT Ellen White RN * [place] Suicide Severity Rating Scale (Screener/Recent Self-Report) Question Answer Date of Assessment Author 1. Wish to be (Past 1 Month) No 025 3:02 PM EDT Ellen White RN 2. Non-Specific Active Suici ross Thoughts (Past 1 Month) No 09/09/2024 3:02 PM EDT Elliott White RN 6. Suicidal Behavior (Lifetime) No 3:02 PM EDT Ellen White, KACY documented as of this encounter Plan of Treatment Upcoming Encounters Date Type Department Care Team (Late st Contact Info) Description 04/13/2025 3:30 PM EST Telemedicine [facility] Department of Neurology 55 [facility], 8th Floor, [address] [place] [address] Christelle Phipps MD [address] [place] [address] [address] [place] [phone] [email or web address] hima 05/01/2025 8:30 AM EST Telemedicine [address] [place] [address] Adair Mejias DO 170 [facility], 2nd [place] [address] [email or web address] 05/19/2025 4:00 PM EST Telemedicine [facility] Neurology Epilepsy [place] [address] [place] [address] Nina Chacon MD [address] [place] [address] Department of [id number] [place] [address] 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 Use Only-Outside EEG (with Interpretation) (10/06/2021 2:53 [...] documented as of this encounter Care Teams Artillery Officer Relationship Specialty Start Date End Date Adair Mejias DO [address] [place] [address], 2nd [place] [address] [email or web address] PCP - General Internal Medicine 08/22/21 Willy Metcalf MD [address] [place] [address] [email or web address] .[email or web address] Insurance Assigned Provider 07/31/20 07/29/22 Wanda Stern, KACY [address] [place] [phone] [email or web address] PHCM LacquererBlack Jack Dealer 08/23/21 04/20/24 documented as of this encounter Additional Source Comments The information contained in this document represents components of the legal health record. It is not the complete legal health record.[facility]
--- OUTSIDE RECORDS SUMMARY | 2021-10-20 11:46 | XMS_ITS | Encounter Summary ---
Author Organization [facility] Address [address] [place] [address] Phone Care Team Providers Care Research Dietitian Name Role Phone Wlily Metcalf MD Unavailable [phone] Adair Mejias DO Primary Care Provider Wanda Stern RN Unavailable [phone] Encounter Details Date Type Department Care Team (Late st Contact Info) Description 10/20/2021 12:46 PM EDT Hospital Encounter [facility] Department of Neurology 55 [facility], [address] [place] [address], [address] [place] [address] Blake Espinosa MD [email or web address] Social History Tobacco Use Types [...] high school, GED, job training, learning the Algerian language, technical skills, or developing parenting skills)? [...] 3:02 PM EDT Ellen White RN * [place] Suicide Severity Rating Scale (Screener/Recent Self-Report) Question [...] Info) Description 04/13/2025 3:30 PM EST Telemedicine [facility] Department of Neurology 55 [facility], 8th Floor, [address] [place] [address] Christelle Phipps MD [address] [place] [address] [address] [place] [phone] [email or web address] hima 05/01/2025 8:30 AM EST Telemedicine [address] [place] [address] Adair Mejias DO 170 [facility], 2nd [place] [address] [email or web address] 05/19/2025 4:00 PM EST Telemedicine [facility] Neurology Epilepsy [place] [address] [place] [address] Nina Chacon MD [address] [place] [address] Department of [address] [place] [address] [email or web address] documented as of this encounter Procedures Procedure Name Priority Date/Time Associated Diagnosis Comments OUTSIDE EEG (WITH INTERPRETATION) Routine 10/11/2021 4:55 PM EDT Other epilepsy, not intractable, without status epilepticus documented in this encounter Results * knockout worker Use Only-Outside EEG (with Interpretation) (10/11/2021 4:55 PM EDT) Anatomical Region Laterality Modality EEG Narrative 10/22/2021 4:34 PM EDT Impression: This 109 hour video EEG is abnormal. Freequent runs of RT wicket spikes and RMTD were seen. On several occaisions, however, these evolved into thythmic events with an evolution of amplitude and frrequency and appeared to represent RT seizures. On one occasion the patient was at the refirgerator across the room. He appeared to behave normally thoughtout the event. On another occasion, he was in bed with no visible clinical signs. He did not push the button for the events dexcribed above. Technical Report: Posterior Dominant Rhythm: Frequency: Left 10 Hz Right 11 Hz Amplitude: Left 17 V Right 15 V Maximum Amplitude Region: Occipital Symmetry: Amplitude and Frequency Reactive to eye opening: Yes Sleep Pattern: Normal Hyperventilation: Not performed Photic Stimulation: Not performed Artifacts interfere with interpretation: No ECG: Normal Additional Info: Prevalence Definition-% of record that includes the pattern. Continuous >90%, Abundant 50-89%, Frequent 10-49%, Occasional 1-9%, Rare < 1% BACKGROUND ACTIVITY: Awake EEG: Well organized and sustained background of 10-11 Hz is present during waking and resting recording. Attenuation is noted with eye opening. INTERICTAL AWAKE: Possible interictal activity was observed and documented on the exam using the Look at this banner and described as possible frequent to abundant focal right temporal rhythmic sharply/spiky contoured discharges with intermix of slowing vs. Wickets waves. ICTAL AWAKE: Possible ictal activity was observed, See Episodes Table Sleep Stages: N1 Sleep (Stage 1) was observed and characterized by the disappearance of alpha rhythm and the appearance of vertex activity. N2 Sleep (Stage 2) was observed and characterized by vertex waves, K-complexes, and sleep spindles. N3 (Stage 3) sleep was not observed during this exam. No clear REM was identified. INTERICTAL SLEEP: Wickets waves seen during N1 sleep, and N2 sleep. ICTAL SLEEP: Possible ictal activity was observed, See Episodes Table AUTOMATED SPIKE AND SEIZURE ANALYSIS AND REVIEW: Teja and seizure detection software alerts have been reviewed by a Registered division manager. Some of these alerts appear to have clinical significance. PUSH BUTTON EVENTS: A button press or notation was made 01 time. Patient log was reviewed with the patient at [facility] with the intent to reconcile events. See Episodes Table. us Blake Espinosa MD NEUROLOGY ORDERABL ES [...] documented as of this encounter Care Teams Research Dietitian Relationship Specialty Start Date End Date Adair Mejias DO [address] [place] [address], 2nd [place] [address] [email or web address] PCP - General Internal Medicine 08/22/21 Willy Metcalf MD [address] [place] [address] [email or web address] Assigned Provider 07/31/20 07/29/22 Wanda Stern, RN [address] [place] [id number] [email or web address] PHC Fly Frame TenderPipe Joints Supervisor 08/23/21 04/20/24 documented as of this encounter Additional Source Comments The information contained in this document represents components of the legal health record. It is not the complete legal health record.[facility]
--- OUTSIDE RECORDS SUMMARY | 2022-05-25 19:37 | XMS_ITS | Encounter Summary ---
Author Organization [facility] Address [address] [place] [address] Phone Care Team Providers Care Traffic Technician Name Role Phone Willy Metcalf MD Unavailable [phone] Adair Mejias DO Primary Care Provider Wanda Stern RN Unavailable Encounter Details Date Type Department Care Team (Late st Contact Info) Description 05/25/2022 7:37 PM EST Hospital Encounter [facility] Department of Neurology [facility], [address] [place] [address], [address] [place] [address] Blake Espinosa MD [email or web address] Social History Tobacco Use Types [...] high school, GED, job training, learning the Mosoth[place] language, technical skills, or developing parenting skills)? [...] 3:02 PM EDT Ellen White RN * [place] Suicide Severity Rating Scale (Screener/Recent Self-Report) Question Answer Date of Assessment Author 1. Wish to be (Past 1 Month) No 05/20/2 025 3:02 PM EDT Ellen White, KACY 2. Non-Specific Active Suici ross Thoughts (Past 1 Month) No 09/09/2024 3:02 PM EDT Elliott White, KACY 6. Suicidal Behavior (Lifetime) No 5 3:02 PM EDT Ellen White, KACY documented as of this encounter Plan of Treatment Upcoming Encounters Date Type Department Care Team (Late st Contact Info) Description 04/13/2025 3:30 PM EST Telemedicine [facility] Department of Neurology [facility], 8th Floor, [address] [place] [address] Christelle Phipps MD [address] [place] [address] [address] [place] [phone] [email or web address] 05/01/2025 8:30 AM EST Telemedicine [facility] [address] [place] [address] [place] [id number] Adair Mejias DO [address] [facility], 2nd [place] [address] [email or web address] 05/19/2025 4:00 PM EST Telemedicine [facility] Neurology Epilepsy [place] [address] [place] [address] Nina Chacon MD [address] [place] [address] Department of [address] [place] [address] [email or web address] documented as of this encounter Procedures Procedure Name Priority Date/Time Associated Diagnosis Comments OUTSIDE EEG (WITH INTERPRETATION) Routine 05/16/2022 10:10 AM EST Other epilepsy, not intractable, without status epilepticus documented in this encounter Results * lotus notes administrator Use Only-Outside EEG (with Interpretation) (05/16/2022 10:10 AM EST) Anatomical Region Laterality Modality EEG Impressions 05/28/2022 9:07 PM EST This is an abnormal EEG in the awake, drowsy and sleep states due to 1) Frequent right temporal epileptiform spikes and spike/sharp wave discharges, that often occur in runs of 3-5 seconds. 2) Four right temporal electrographic seizures 3) Frequent (up to 18 right temporal Brief Potentially Ictal Rhythmic Discharges - BIRDs, lasting 6-9 seconds) INDICATION:57 year old male with complex partial seizures, EEG being performed to assess for seizure burden. Recording start: 05/13/2022 4:11:35 PM Recording stop: 05/16/2022 10:10:26 AM METHOD: Twenty-five (25) disposable electrodes were applied according to the standard 10-20 international measurement and placement protocol in person by an pediatric clinical dietician for the purposes of recording long-term video EEG: (19) cephalic, (2) T1/T2 sub-temporal, (1) ground, (1) system reference, and (2) ECG. Data was recorded on a 24-channel [employer] EEG recording device with a sampling rate of 200 samples per second/per channel, at impedance levels less than 10 K Ohms. Once the exam was completed, the recording was halted, electrodes carefully removed, and data transferred. DETAIL: The resting background was symmetric, and characterized by a 10 Hz posterior dominant rhythm with reactivity and good anterior-posterior organization. Slow roving eye movements were seen during drowsiness. Drowsiness and sleep were characterized by generalized slowing. During sleep vertex waves, symmetric sleep spindles and K-complexes were seen. Frequent right temporal spike and sharp and slow wave discharges often occurring in brief runs of 3-5 seconds. 4 Right temporal electrographic seizure characterized by right temporal spikes and sharps with evolution in frequency and morphology lasting 10 seconds Frequent (up to 18) Right temporal brief potentially ictal rhythmic discharges, with spikes and sharp waves with evoluation in frequency and morphology lasting up to 9 seconds EKG: No dysrhythmia. Corrie Bains MD [facility] Epilepsy Service Narrative 05/28/2022 9:07 PM EST Images from the original result were not included. us Blake Espinosa MD NEUROLOGY ORDERABL ES [...] Assessment Noted Time PHQ-9 Depression Total Score: 6 02/15/20 12:36 PM EDT PHQ-2 Depression Total Score: 2 02/15/20 12:36 PM EDT documented as of this encounter Care Teams Traffic Technician Relationship Specialty Start Date End Date Adair Mejias DO [address] [place] [address], 2nd [place] [address] [email or web address] PCP - General Internal Medicine 08/22/21 Willy Metcalf MD [address] [place] [phone] [email or web address] Insurance Assigned Provider 07/31/20 07/29/22 Wanda Stern, RN [address] [place] [address] [email or web address] PHCM Master CookCertified Histologic Technician 08/23/21 04/20/24 documented as of this encounter Additional Source Comments The information contained in this document represents components of the legal health record. It is not the complete legal health record.[facility]
--- OUTSIDE RECORDS SUMMARY | 2022-05-25 19:37 | XMS_ITS | Encounter Summary ---
Author Organization [facility] Address [address] [place] [address] Phone Care Team Providers Care Patient Manager Name Role Phone Willy Metcalf MD Unavailable [phone] Adair Mejias DO Primary Care Provider Wanda Stern RN Unavailable [phone] Encounter Details Date Type Department Care Team (Late st Contact Info) Description 05/25/2022 7:37 PM EST Hospital Encounter [facility] Department of Neurology [facility], [address] [place] [address], [address] [place] [address] Blake Espinosa MD [email or web address] Social History Tobacco Use Types [...] high school, GED, job training, learning the [place] language, technical skills, or developing parenting skills)? [...] 3:02 PM EDT Ellen White RN * [place] Suicide Severity Rating Scale (Screener/Recent Self-Report) Question Answer Date of Assessment Author 1. Wish to be (Past 1 Month) No 05/20/2 025 3:02 PM EDT Ellen White, KACY 2. Non-Specific Active Suici ross Thoughts (Past 1 Month) No 09/09/2024 3:02 PM EDT Elliott White, KACY 6. Suicidal Behavior (Lifetime) No 3:02 PM EDT Ellen White, KACY documented as of this encounter Plan of Treatment Upcoming Encounters Date Type Department Care Team (Late st Contact Info) Description 04/13/2025 3:30 PM EST Telemedicine [facility] Department of Neurology [address] [facility], 8th Floor, [address] [place] [address] Christelle Phipps MD [address] [place] [address] [address] [place] [phone] [email or web address] 05/01/2025 8:30 AM EST Telemedicine [facility] [address] [place] [address] [place] [address] Adair Mejias DO 170 [facility], 2nd [place] [address] [email or web address] 05/19/2025 4:00 PM EST Telemedicine [facility] Neurology Epilepsy [place] [address] [place] [address] Nina Chacon MD [address] [place] [address] Department of [address] [place] [address] 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 INDICATION: 57 year old male with complex partial seizures, EEG being performed to assess for seizure burden. Recording start: 05/13/2022 3:25:37 PM Recording stop: 05/13/2022 4:08:32 PM METHOD: Twenty-five (25) disposable electrodes were applied according to the standard 10-20 international measurement and placement protocol in person by an industrial ecology technician for the purposes of recording routine EEG: (19) cephalic, (2) T1/T2 sub-temporal, (1) ground, (1) system reference, and (2) ECG. Data was recorded on a 24-channel [employer] EEG recording device with a sampling rate of 200 samples per second/per channel, at impedance levels less than 10 K Ohms. Once the exam was completed, the recording was halted, electrodes carefully removed, and data transferred. The recording was done for a period of more than 20 minutes. DETAIL: The resting background was symmetric, and characterized by a 10-11 Hz posterior dominant rhythm with reactivity and good anterior-posterior organization. Slow roving eye movements were seen during drowsiness. Drowsiness and sleep were characterized by generalized slowing. During sleep vertex waves, symmetric sleep spindles and K-complexes were seen. There were frequent right temporal sharp waves, occasionally occurring in runs of 4-5 seconds with no evolution. EKG: No dysrhythmia. Corrie Banis MD [facility] Epilepsy Service us Blake Espinosa MD NEUROLOGY ORDERABL ES [...] documented as of this encounter Care Teams Patient Manager Relationship Specialty Start Date End Date Adair MejiaswDO [address] [place] [address], 2nd [place] [address] PCP - General Internal Medicine 08/22/21 Willy Metcalf MD [address] [address] [email or web address] Insurance Assigned Provider 07/31/20 07/29/22 Wanda Stern, RN [address] [place] [phone] [email or web address] Battery Wrecker OperatorTheater Education Teacher 08/23/21 04/20/24 documented as of this encounter Additional Source Comments The information contained in this document represents components of the legal health record. It is not the complete legal health record.[facility]
--- OUTSIDE RECORDS SUMMARY | 2025-03-17 15:00 | XMS_ITS | Encounter Summary ---
Author Organization [employer] Address [address] [place] [address] Care Team Providers Care Food Cart Attendant Name Role Phone Unavailable Primary Care Provider Unavailabl e Reason for Visit * Reason Comments Dentures Encounter Details Date Type Department Care Team ([facility] st Contact Info) Description 03/17/2025 3:00 PM EST Office Visit [facility] ADULT D[facility] [address] [place] [address] Caleb Russo, BEAR [address] [place] [address] Denture irritation (Primary Dx) Social History Tobacco Use Types Packs/Day Years Used Date Smoking Tobacco: Former Cigarettes Smokeless Tobacco: Never Alcohol Use Standard Drinks/Week Comments Never 0 (1 standard drink = 0.6 oz pur e alcohol) Sex and Gender Information Value Date Recorded Sex Assigned at Male 02/20/2022 10:22 AM EDT Legal Sex Male 10:22 AM EDT Gender Identity Male 02/20/2022 10:22 AM EDT Sexual Orientation Choose not to disclose 2021 10:22 AM EDT documented as of this encounter Progress Notes * Caleb Russo DMD - 03/17/2025 3:00 PM EST Patient ID: Manny Kearns is a 59 y.o. male. 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 Confirmed via patient's chart, intraorally and by radiographs. Records Supervisor: not applicable Chief Complaint Patient presents with Dentures Medical Hx: Vitals: There were no vitals taken for this visit. Medications, Med Hx reviewed with patient and updated in chart. Consent Obtained: The risks, benefits, indications, potential complications, and alternatives were explained to the patient and informed consent was obtained with good understanding. Treatment Provided: Dental procedures in this visit D5750.2 - DENTURE FOLLOWUP (Completed) Service provider: Caleb Russo DMD Billing provider: Caleb Russo DMD [id number] - CASE PRESENTATION, DETAILED AND EXTENSIVE TREATMENT PLANNING (Completed) Service provider: Caleb Russo DMD Billing provider: Caleb Russo DMD Pt notes some movement of maxillary denture during function Reviewed portion of denture is tissue borne and there will always be some movement Checked and adjusted occlusion on maxilla to remove high contacts Mandible - pt notes areas of irritation on intaglio surfaces. PIP used and adjusted accordingly with acrylic bur Pt confirmed improvement. Pt also expressed interest in implants. Reviewed improvement with masticatory ability. Request to be made for Dr. Aguilar evaluation Smoothed and polished. Pt tolerated procedure well and was dismissed in good condition. [place]: denture f/u PRN, implant consult Bingo Caller: Rina Ly Dentist: Caleb Russo DMD documented in this encounter Plan of Treatment Not on file documented as of this encounter Procedures Procedure Name Priority Date/Time Associated Diagnosis Comments DENTURE FOLLOWUP Routine 03/17/2025 3:00 PM EST Denture irritation CASE PRESENTATION, DETAILED AND EXTENSIVE TREATMENT PLANNING Routine 03/17/2025 3:00 PM EST Denture irritation documented in this encounter Visit Diagnoses Diagnosis Denture irritation- Primary documented in this encounter
--- NOTE | ~2025-03-22 | XR_ITS ---
CLINICAL HISTORY: neck pain, foreign body sensation Neck Soft Tissues, 2 views COMPARISON: None provided FINDINGS: No visible foreign body. A calcific density projecting over the airway on the lateral view at the C6-C7 level appears to represent calcification within the thyroid cartilage. Patent airway. Normal-appearing epiglottis. No acute fracture. Degenerative changes in the spine. Unremarkable soft tissues. IMPRESSION: No acute findings. No visible foreign body. This document has been electronically signed by: Davis López MD on 03/22/2025 16:45:34
--- NOTE | ~2025-03-22 | CT_ITS ---
CLINICAL HISTORY: [facility], .b. sensation CT chest without contrast Comparison: None provided Findings: The heart is normal size. The visualized thyroid and mediastinum are unremarkable. Linear basilar subsegmental atelectasis or infiltrates. 5 mm pulmonary nodules in the periphery of the right upper lobe. Mild emphysematous changes are present throughout the lungs. The upper abdomen is unremarkable. The bones are intact. IMPRESSION: 5 mm pulmonary nodule in the periphery of the right upper lobe. Recommend follow-up per fleischner society recommendations: 5 mm or smaller nodules need no follow-up in low risk, and [address] follow-up is optional in high risk patients. No radiodense esophageal foreign body identified. This document has been electronically signed by: Tru Arcos MD, PHD on 03/23/2025 01:19:07
[2025-03-22 15:04] VITALS: BP 120/67; PULSE 68; RESP 18; TEMP 36.3; O2SAT 98; BMI 22.2
--- NOTE | 2025-03-22 15:10 | ED.GENADULT ---
HPI - General Adult General Chief complaint: General Medical Stated complaint: General Medical Time Seen by Provider: 03/22/25 21:26 Source: patient Mode of arrival: ambulatory Limitations: no limitations History of Present Illness ED Provider: Dr. Veronica Roca HPI narrative: Patient comes to the emergency room complaining of trouble swallowing foods and foreign body sensation in the esophagus. According to the patient, since patient had brain surgery done (per patient partial brain resection) to control seizures, patient states that he has been trouble swallowing his pills. Patient states that it has gradually become worse. Patient states that he used to be able to take all of his antiepileptic medications altogether with fluids and swallow them normal. However, now he is having trouble swallowing even 1 x 1. Patient states that he tries mixing it with soft foods like mashed potatoes. Sometimes it works, sometimes they do get stuck. At this time, patient is not sure if he feels that he has does stuck in his off esophagus or if it is a residual from the irritation from previously start pills. Patient denies any pain. Patient states that the above-mentioned also happens with dry crackers, but not so much with other solid foods Related Data Previous Rx's ?Medication ?Instructions ?Recorded doxycycline hyclate 100 mg capsule 100 mg PO BID 7 days #14 caps 07/08/22 prednisone 20 mg tablet 20 mg PO DAILY 7 days #7 tabs 11/22/22 benzonatate 100 mg capsule 100 mg PO TID PRN cough #20 caps 01/12/24 Allergies Allergy/AdvReac Type Severity Reaction Status Date / Time naproxen (From NAPROSYN) Allergy Severe STOMACH Verified 03/22/25 15:12 UPSET Review of Systems Review of Systems: Constitutional : No Weight loss, No Fever, No Chills, No Night Sweats, No Fatigue, No Malaise ENT/Mouth : No Hearing loss, No Ear Pain, No Nasal Congestion, No Sinus Pain, No Hoarseness, c No sore throat, No Rhinorrhea, complaining of gradually increasing trouble swallowing solids Eyes: No Eye Pain, No Swelling, No Redness, No Foreign Body, No Discharge, No Vision Changes Cardiovascular : No Chest Pain, No SOB, No Dyspnea on Exertion, No Orthopnea, No Edema, No Palpitations Respiratory : No Cough, No Sputum, No Wheezing, No Smoke Exposure, No Dyspnea Gastrointestinal : No Nausea, No Vomiting, No Diarrhea, No Constipation, No abdominal Pain, No Hematochezia, No Melena Genitourinary : no irregular bleeding, No Dysuria, No Urinary Frequency, No Hematuria, No Urinary Incontinence, No Urgency, No Flank Pain, No Urinary Flow Changes, No Hesitancy Musculoskeletal : No joint pain, No Myalgias, No Joint Swelling Skin : No Skin Lesions, No rash Neuro : No Weakness, No Numbness, No Paresthesias, No Loss of Consciousness, No Dizziness, No Headache Psych : No Anxiety/Panic, No Depression, No SI/HI/AH/VH, No Social Issues, Heme/Lymph: No Bruising, No Bleeding,No Lymphadenopathy Endocrine : No Polyuria, No Polydipsia, No Temperature Intolerance [facility] Past Medical History Medical History (Updated 03/22/25 @ 21:51 by Veronica Roca MD) Epilepsy Social History Social History Smoked in Last 30 Days: No Use of substances other than those prescribed or required for medical reasons: No Advance Directives: No Advance Directives Information Provided: No Physical Exam ED Exam Exam: Appearance: Alert. Oriented X3. No acute distress. Eyes: Pupils equal, round and reactive to light. ENT: Pharynx normal. Neck: Normal inspection. Neck supple. No lymph nodes noted. No crepitus CVS: Normal heart rate and rhythm. Pulses normal. Normal S1 and S2 Respiratory: No respiratory distress. Breath sounds normal. No Wheezing. No rales Abdomen: Soft and nontender. No rigidity. No distention. Skin: Skin warm and dry. Normal skin color. Normal skin turgor. Extremities: No lower extremity edema. No Lacerations. No Rash Neuro: Oriented X 3. No motor deficit. No sensory deficit. Moving all extremities. No slurred speech. CN 2 through 12 grossly intact Psych: calm, cooperative, normal affect Vital Signs: Vital Signs - 24 hr 03/22/25 15:04 03/22/25 21:47 03/23/25 00:50 Temperature 97.4 F 98.3 F 98.6 F Pulse Rate 68 68 60 Respiratory Rate 18 16 16 Blood Pressure 120/67 122/73 121/67 Pulse Oximetry 98 97 95 Oxygen Delivery Method Room Air Room Air Room Air 03/23/25 02:01 Temperature 98.6 F Pulse Rate 60 Respiratory Rate 16 Blood Pressure 121/67 Pulse Oximetry 95 Oxygen Delivery Method Room Air BMI result Body Mass Index 22.2 Course Course Course Narrative: Medical screening exam performed. Please refer to detailed history, exam, evaluation, and management by primary provider. Foreign body sensation with swallowing pills. Able to eat and drink without difficulty. Speaks full clear sentences. No drooling. Tolerates water. Plain film x-ray. Medical Decision Making Medical Decision Making [facility] Narrative: X-rays from the neck from earlier today did not show any acute abnormality. Very difficult to visualize pills on an x-ray. Patient is still feels that he has a foreign body sensation. Unlikely that he is still has any pills left, likely resolved over last few hours. However, we will order a CT scan. I discussed with the patient that he will need to be seen by business support liaison and they can do a barium swallow test or any other tests that the business support liaison thinks it is necessary. CT scan does not show any acute abnormality. Patient does have nodule in the lung, CT scans may need to be repeated in a few months. Patient instructed to follow-up with his PCP Differential Diagnosis Differential Diagnoses: The differential diagnosis associated with the presentation includes (dysphagia, achalasia, esophageal stricture) Independent Interpretation I performed an independent interpretation of an: Plain X-Ray and CT Scan Radiology Impression Discussion of test interpretation with radiology: I have reviewed the radiologist's reading. Radiologist Impression: No visible foreign body. A calcific density projecting over the airway on the lateral view at the C6-C7 level appears to represent calcification within the thyroid cartilage. Patent airway. Normal-appearing epiglottis. No acute fracture. Degenerative changes in the spine. Unremarkable soft tissues. IMPRESSION: No acute findings. No visible foreign body. The heart is normal size. The visualized thyroid and mediastinum are unremarkable. Linear basilar subsegmental atelectasis or infiltrates. 5 mm pulmonary nodules in the periphery of the right upper lobe. Mild emphysematous changes are present throughout the lungs. The upper abdomen is unremarkable. The bones are intact. IMPRESSION: 5 mm pulmonary nodule in the periphery of the right upper lobe. Recommend follow-up per fleischner society recommendations: 5 mm or smaller nodules need no follow-up in low risk, and [address] follow-up is optional in high risk patients. No radiodense esophageal foreign body identified. Discharge Plan Discharge Clinical Impression: Dysphagia Patient Disposition: Home, Self-Care Instructions: Dysphagia (ED), Full Liquid Diet (DC) Additional Instructions: Please follow-up with your primary care physician tomorrow. When you get home, please take your seizure medications and today in the morning, resume your normal schedule. If you have any worsening or new symptoms, please return to the emergency room or call 911 Prescriptions: No Action doxycycline hyclate 100 mg capsule 100 mg PO BID 7 Days Qty: 14 0RF prednisone 20 mg tablet 20 mg PO DAILY 7 Days Qty: 7 0RF benzonatate 100 mg capsule 100 mg PO TID PRN (Reason: cough) Qty: 20 0RF Referrals: Fernandez Koch MD [Physician, Gastroenterology] Interventions: ED Discharge Assessment Last Done: 03/23/25 02:01 Discharge Date/Time: 03/23/25 02:02 Print Language: Chilean
--- OUTSIDE RECORDS SUMMARY | 2025-03-22 20:54 | XMS_ITS | Encounter Summary ---
Author Organization [facility] Address [address] [place] [phone] Phone Care Team Providers Care Drying Oven Tender Name Role Phone Adair Mejias DO Primary Care Provider Encounter Details Date Type Department Care Team (Late st Contact Info) Description 03/20/2025 Orders Only [facility] [address] [place] [address] Provider, MD Hope [address] [place] [address] Social History Tobacco Use Types Packs/Day Years [...] high school, GED, job training, learning the Swedish language, technical skills, or developing parenting skills)? [...] Info) Description 04/13/2025 3:30 PM EST Telemedicine [facility] Department of Neurology [address] [place] [address], 8th Floor, [address] [place] [address] Christelle Phipps MD [address] [place] [phone] [email or web address] 05/01/2025 8:30 AM EST Telemedicine [facility] [address] [place] [address] [place] [address] Adair Mejias DO [address] [address] [email or web address] 05/19/2025 4:00 PM EST Telemedicine [facility] Neurology Epilepsy [place] [address] [place] [address] Nina Chacon MD [address] [place] [address] Department of [email or web address] [place] [address] [email or web address] documented as of this encounter Procedures Procedure Name Priority Date/Time Associated Diagnosis Comments COLOGUARD (EXACT SCIENCES) (NON-MGB) Routine 03/13/2025 9:59 AM EST documented in this encounter Results * Cologuard (Exact Sciences) (Non-MGB) (03/13/2025 9:59 AM EST) Stool (Per Rectum) us Historical Provider BODY FLUIDS AND STOOLS OR DERABLES Edited Result - Final documented in this encounter Visit Diagnoses Not on filedocumented in this encounter Additional Health Concerns Assessment Noted Time PHQ-9 Depression Total Score: 4 10/04/19 24 3:43 PM EDT PHQ-2 Depression Total Score: 2 10/04/19 24 3:43 PM EDT documented as of this encounter Care Teams Drying Oven Tender Relationship Specialty Start Date End Date Adair Mejias DO [address] [place] [phone] [email or web address] PCP - General Internal Medicine 08/22/21 documented as of this encounter Additional Source Comments The information contained in this document represents components of the legal health record. It is not the complete legal health record.[facility]
--- OUTSIDE RECORDS SUMMARY | 2025-03-22 20:54 | XMS_ITS | Encounter Summary ---
Author Organization [facility] Address [address] [facility] [address] [place] [phone] Phone Care Team Providers Care Worship Pastor Name Role Phone Adair Mejias DO Primary Care Provider Reason for Visit * Reason Onset Date Comments Medication Problem 03/20/2025 Encounter Details Date Type Department Care Team (Late st Contact Info) Description 03/20/2025 Telephone [facility] [address] [place] [address] Adair Mejias DO [address] [place] [address] [email or web address] Medication Problem Social History Tobacco Use Types Packs/Day Years [...] high school, GED, job training, learning the Kittitian language, technical skills, or developing parenting skills)? [...] on file documented as of this encounter Progress Notes * Jenny Amador, RN - 03/20/2025 4:15 PM EST Call made to patient. He reports that for the past week or so he's been having new onset difficulty swallowing his medications. He states that he almost feels like they're getting stuck off to the side of his throat. He says it takes forever to get his medications down, and it feels like he has to manipulate his head and neck to get the pills from down the sides of his throat. He is concerned because this is a new problem, and he also takes anti-seizure meds so he doesn't want to miss any medication. He has been trying to put them in applesauce and its reportedly not helping. He says that when he was flossing two-three weeks ago he noticed he had what looked like a white, puffy blister on his left tonsil. He wasn't having difficulty swallowing at that time, but notes thatthe medication swallowing difficulty came about a week later.. Currently he notes that his tonsils dont look particularly swollen to him, he states that he had issues with tonsil stones a long time ago but nothing more recent. Patient has not had any other symptoms, no fevers, chills, cough, sore throat. I let patient know that Dr. Mejias doesn't have any upcoming availability for 2+ wks, and I wouldlike for him to be evaluated soon as we dont want to cause any issues with seizure meds, and if there are new onset issues with swallowing this is something we want him to be evaluated for. He can only go to [facility] for eval if he is to go to ED, as he lives closest to that facility and requires uber for all rides. Let patient know that if symptoms worsen or anything new occurs he is to go to [facility] foreval, and I will let Dr. LOONEY know and we can get a call to him next week regarding care advice, but at this time patient should seek evaluation. Patient understanding and thankful for phone call. * Aruna Hernandez - 03/20/2025 2:09 PM EST PT lvm on the triage line reports that he has a white spot on one of his tonsils. Also states that when he takes his meds they seem to be getting stuck in his throat. Requesting call back to f/u. [facility] Call [facility] CSS Agent (Please do not reply to this user, as this inbox is not monitored. Thank you.) Thank you. documented in this encounter Plan of Treatment Upcoming Encounters Date Type Department Care Team (Late st Contact Info) Description 04/13/2025 3:30 PM EST Telemedicine [facility] Department of Neurology [address] [facility], 8th Floor, [address] [place] [address] Christelle Phipps MD [address] [place] [address] [address] [address] [place] [phone] [email or web address] 05/01/2025 8:30 AM EST Telemedicine [facility] [address] [place] [address] [place] [address] Adair Mejias DO [address] [place] [phone] [email or web address] 05/19/2025 4:00 PM EST Telemedicine [facility] Neurology Epilepsy [place] [address] [place] [address] Nina Chacon MD [address] [place] [address] Department of [id number] [place] [address] [email or web address] documented as of this encounter Visit Diagnoses Not on filedocumented in this encounter Additional Health Concerns Assessment Noted Time PHQ-9 Depression Total Score: 4 10/04/19 24 3:43 PM EDT PHQ-2 Depression Total Score: 2 10/04/19 24 3:43 PM EDT documented as of this encounter Care Teams Worship Pastor Relationship Specialty Start Date End Date Adair Mejias DO [address] [place] [phone] [email or web address] PCP - General Internal Medicine 08/22/21 documented as of this encounter Additional Source Comments The information contained in this document represents components of the legal health record. It is not the complete legal health record.[facility]
--- OUTSIDE RECORDS SUMMARY | 2025-03-22 20:54 | XMS_ITS | Encounter Summary ---
Author Organization [facility] Address [address] [facility] [address] [place] [address] Phone Care Team Providers Care Silverware Buffer Name Role Phone Adair Mejias DO Primary Care Provider Wanda Stern RN Unavailable [phone] Encounter Details Date Type Department Care Team (Latest Contact Info) Description 02/09/2023 Transcribe Orders [facility] Department of Neurology [address] [facility], [address] [place] [address] [place] Intractable epilepsy with status epilepticus, unspecified epilepsy type (Primary Dx) Social History Tobacco Use Types Packs/Day Years Used Date Smoking Tobacco: Former Cigarettes 1 40 1 982 - 05/09/2021 Smokeless Tobacco: Never Alcohol Use Standard Drinks/Week Comments No 0 (1 standard drink = 0.6 oz pur e alcohol) Education Answer Date Recorded Are you interested in more education? Not on anna e 08/17/2022 Are you concerned about learning? Not on file 08/17/2022 No 08/17/2022 No 08/17/2022 Digital Access Answer Date Recorded No 09/13/2022 No 09/13/2022 Reliable internet access at home? Not on file 09/13/2022 Device with a working camera? Not on file Sex and Gender Information Value Date Recorded Sex Assigned at Not on file Legal Sex Male 9:41 PM EDT Gender Identity Not on file Sexual Orientation Not on file documented as of this encounter Plan of Treatment Upcoming Encounters Date Type Department Care Team (Late st Contact Info) Description 04/13/2025 3:30 PM EST Telemedicine [facility] [place] of [place]rology [address] [facility], 8th Floor, [address] [place] [address] Christelle Phipps MD [address] [place] [address] [place] [address] [place] [phone] [email or web address] 05/01/2025 8:30 AM EST Telemedicine [facility] [address] [place] [address] [place] [address] Adair Mejias DO [address] [facility], 2nd [place] [address] [email or web address] 05/19/2025 4:00 PM EST Telemedicine [facility] Neurology Epilepsy [place] [address] [place] [address] Nina Chacon MD [address] [place] [address] Department of [email or web address] [place] [address] [email or web address] documented as of this encounter Procedures Procedure Name Priority Date/Time Associated Diagnosis Comments OUTSIDE EEG (WITH INTERPRETATION) Routine 02/06/2023 12:20 PM EDT Intractable epilepsy with status epilepticus, unspecified epilepsy type OUTSIDE EEG (WITH INTERPRETATION) Routine 02/05/2023 3:20 PM EDT Intractable epilepsy with status epilepticus, unspecified epilepsy type documented in this encounter Results * risk management consultant Use Only-Outside EEG (with Interpretation) (02/06/2023 12:20 PM EDT) Anatomical Region Laterality Modality EEG Other Narrative 02/11/2023 5:38 PM EDT Images from the original result were not included. 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 Mr. Kearns presented twice in April 2021 with new onset nonconvulsive status epilepticus, with unrevealing working, and episodes suspicious for undiagnosed focal onset seizures on history. Episodes consist of staring off and repeating y up, uh-huh for a few seconds. He is amnestic to these events, and last known episode was ~ 2 years ago. Ambulatory EEG 05/13/2022, results not documented. Ambulatory EEG 10/11/2021 reportedly with probable right temporal seizures, and right temporal wickets. VEEG 05/20-05/25/2021 showed right temporal electrographic seizures and right temporal focal slowing, but decreased seizure burden compared to prior study. VEEG 05/11-05/13/2021 captured right hemispheric-onset nonconvulsive status epilepticus, and right temporal intermittent slowing and interictal epileptiform discharges. MRI brain 3T Epilepsy protocol 09/16/2021 reportedly did not reveal potential epileptogenic focus. MEDICATION(s): Zonisamide, lacosamide, levetiracetam, clonazepam, alprazolam. Also fluoxetine, ibuprofen. LONG-TERM EEG/VEEG RECORDING SET-UP and TAKE-DOWN TECHNICAL SUMMARY: Long-Term EEG with Video was monitored intermittently by a qualified phlebotomy technologist for the entirety of the recording; quality check-ins were performed at a minimum of every two hours, checking, and documenting real-time data and video to assure the integrity and quality of the recording (e.g., camera position, electrode integrity and impedance), and identify the need for maintenance. For intermittent monitoring, an operations engineer monitored no more than 12 patients concurrently. Video was being recorded at least 80% of the time during the study duration, unless otherwise noted in an Exception Statement. Long-Term EEG Interpretation: The best waking background is symmetric and continuous, with good organization and a reactive 10-30 uV, 10-11 Hz posterior dominant rhythm. There is increased beta activity. There is intermittent myogenic and movement artifact, with the study partially obscured in places by myogenic artifact over the bilateral temporal chains. There are eight electrographic seizures between 7:42 PM 02/05/23 and 10:02 AM 02/06/23: they all consist of rhythmic 7-8 Hz theta activity, maximal at T4, with evolution in frequency, morphology and distribution, lasting ~ 10-20 seconds, before return to the pre-ictal baseline. In addition, there are occasional/frequent 1-7 second-long bursts of right temporal rhythmic, evolving 6-7 Hz theta activity, maximal at T4 but with a field extending over all right hemispheric leads, and often preceded by the previously described right temporal sharp-slow discharges. Given the electrographic similarity between the seizures and some of the BRDs, despite lasting less than 10 seconds, several of the BRDs likely represent seizures. On review of video, no apparent clinical correlate for any of the seizures or BRDs. There are abundant right temporal interictal epileptiform discharges, maximal at T4. These appear as low amplitude, blunted sharps and as pronounced, high amplitude 60-85 uV sharps with a broad field over much of the right hemispheric leads and after-going slow wave. There are frequent examples of brief, 2-5 second bursts of quasi-periodic, 2-3 Hz interictal epileptiform discharges. There is occasional right temporal focal slowing, maximal at T4. No clinical apparent clinical correlate. Drowsiness is characterized by decreased myogenic and movement artifact, decreased eyeblink, diffuse theta slowing and amplitude attenuation of the background, and appearance of slow roving eye movements and of vertex waves. Stage II sleep is characterized by vertex waves, K complexes and symmetric sleep spindles. There are no patient event button pushes, and no patient diary entry detailing symptoms. Single lead EKG shows an apparent normal sinus rhythm of 60-90 bpm. Impression: This 20-hour long-term EEG monitoring study with video captures wakefulness, drowsiness and sleep, and is abnormal due to 1) eight definite right temporal lobe electrographic seizures, maximal at T4, 2) frequent/occasional right temporal lobe BRDs, maximal at T4, some of which likely represent seizures, given their similarity to the previously described seizures, 3) abundant right temporal lobe interictal epileptiform discharges (sharp-slow discharges), maximal at T4, and 4) occasional right temporal lobe focal delta slowing, maximal at T4. On review of the video, no apparent clinical correlate. No event button pushes and no patient diary entries. Signature: Physician Name and Credentials: Lucretia Hernandez MD, PhD Date: 02/11/2023 us Blake Espinosa MD NEUROLOGY ORDERABL ES Final Result * risk management consultant Use Only-Outside EEG (with Interpretation) (02/05/2023 3:20 PM EDT) Anatomical Region Laterality Modality EEG Other Impressions 02/11/2023 5:36 PM EDT This routine EEG, performed in the waking state, but not drowsy or sleeping states, is abnormal due to 1) abundant right temporal interictal epileptiform discharges, maximal at T4, that occurs in one instance as a brief, 2-3 second burst of 2-3 Hz discharges, and 2) occasional, brief right temporal focal slowing, maximal at T4. There are no seizures. Signature: Physician Name and Credentials: Lucretia Hernandez MD, PhD Date: 02/11/2023 Narrative 02/11/2023 5:36 PM EDT Images from the original result were not included. 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 Mr. Kearns presented twice in April 2021 with new onset nonconvulsive status epilepticus, with unrevealing working, and episodes suspicious for undiagnosed focal onset seizures on history. Episodes consist of staring off and repeating y up, uh-huh for a few seconds. He is amnestic to these events, and last known episode was ~ 2 years ago. Ambulatory EEG 05/13/2022, results not documented. Ambulatory EEG 10/11/2021 reportedly with probable right temporal seizures, and right temporal wickets. VEEG 05/20-05/25/2021 showed right temporal electrographic seizures and right temporal focal slowing, but decreased seizure burden compared to prior study. VEEG 05/11-05/13/2021 captured right hemispheric-onset nonconvulsive status epilepticus, and right temporal intermittent slowing and interictal epileptiform discharges. MRI brain 3T Epilepsy protocol 09/16/2021 reportedly did not reveal potential epileptogenic focus. MEDICATION(s): Zonisamide, lacosamide, levetiracetam, clonazepam, alprazolam. Also fluoxetine, ibuprofen. TECHNICAL SUMMARY: Twenty-five (25) disposable electrodes were applied according to the standard 10-20 international measurement and placement protocol in person by an operations engineer for the purposes of recording routine EEG: (19) cephalic, (2) T1/T2 sub-temporal, (1) ground, (1) system reference, and (2) ECG. Data was recorded on a 24-channel [employer] EEG recording device with a sampling rate of 200 samples per second/per channel, at impedance levels less than 10 K Ohms. Once the exam was completed, the recording was halted, electrodes carefully removed, and data transferred. The recording was done for a period of more than 20 minutes. Routine EEG Interpretation: The best waking background is symmetric and continuous, with good organization and a reactive 10-30 uV, 10-11 Hz posterior dominant rhythm. There is increased beta activity. There is intermittent myogenic and movement artifact, with the study partially obscured in places by myogenic artifact over the bilateral temporal chains. There are abundant right temporal interictal epileptiform discharges, maximal at T4. These appear both as low amplitude, blunted sharps and as pronounced, high amplitude 60-85 uV sharps with a broad field over much of the right hemispheric leads and after-going slow wave. There is an isolated example of a 2-3 second burst of ~ 2-3 Hz interictal epileptiform discharges. There is occasional right temporal focal slowing, maximal at T4. No clinical apparent clinical correlate reported. Clear drowsiness is not captured during this study. Stage II sleep is not captured during this study. Hyperventilation is not performed. Photic stimulation is not performed. Single lead EKG is limited in places by movement, but largely shows an apparent sinus rhythm of approximately 60-70 beats per minute. us Blake Espinosa MD NEUROLOGY ORDERABL ES Final Result documented in this encounter Visit Diagnoses Diagnosis Intractable epilepsy with status epilepticus, unspecified epilepsy type- Primary Intractable epilepsy with status epilepticus, unspecified epilepsy type Intractable epilepsy with status epilepticus, unspecified epilepsy type documented in this encounter Additional Health Concerns Infection Onset Date Last Indicated Resolved Time CoV-Risk Comment:Per note documentation 05/18/2023 05/19/2023 9:48 AM EST COVID-19 12/31/2023 12/31/2023 01/21/2024 1:22 AM EDT Assessment Noted Time PHQ-9 Depression Total Score: 5 01/19/20 23 11:22 AM EDT PHQ-2 Depression Total Score: 2 01/19/20 23 11:22 AM EDT documented as of this encounter Care Teams Silverware Buffer Relationship Specialty Start Date End Date Adair Mejias DO [address] [place] [address], 2nd [place] [address] PCP - General Internal Medicine 08/22/21 Wanda Stern, RN [address] [place] [phone] PHCM Minister Of ReligionGeography Department Chair 08/23/21 04/20/24 documented as of this encounter Additional Source Comments The information contained in this document represents components of the legal health record. It is not the complete legal health record.[facility]
--- OUTSIDE RECORDS SUMMARY | 2025-03-22 20:54 | XMS_ITS | Encounter Summary ---
Author Organization [facility] Address [address] [place] [address] Phone Care Team Providers Care Maintenance Groundman Name Role Phone Adair Mejias DO Primary Care Provider Wanda Stern RN Unavailable [phone] Reason for Visit * Reason Comments Medication Refill Encounter Details Date Type Department Care Team (Late st Contact Info) Description 02/20/2023 Refill [facility] Epilepsy Service [address] [facility], 8th Floor, [address] [place] [address] Blake Espinosa MD [email or web address] Medication Refill Social History Tobacco Use Types Packs/Day Years [...] as of this encounter Progress Notes * Mark Vieyra MA - 02/20/2023 1:28 PM EDT Duplicate please refuse. documented in this encounter Plan of Treatment Upcoming Encounters Date Type Department Care Team (Late st Contact Info) Description 04/13/2025 3:30 PM EST Telemedicine [facility] Department of Neurology [address] [facility], 8th Floor, [address] [place] [address] Christelle Phipps MD [address] [place] [address] 110 [place] [phone] [email or web address] hima 05/01/2025 8:30 AM EST Telemedicine [facility] [address] [place] [address] Adair Mejias DO 170 [facility], 2nd [place] [address] [email or web address] 05/19/2025 4:00 PM EST Telemedicine [facility] Neurology Epilepsy [address] [place] [address] Nina Chacon MD [address] [place] [address] Department of [id number] [place] [address] [email or web address] documented as of this encounter Visit Diagnoses Not on filedocumented in this encounter Additional Health Concerns Infection Onset Date Last Indicated Resolved Time CoV-Risk Comment:Per note documentation 05/18/2023 05/19/2023 9:48 AM EST COVID-19 12/31/2023 12/31/2023 01/21/2024 1:22 AM EDT Assessment Noted Time PHQ-9 Depression Total Score: 5 01/19/20 23 11:22 AM EDT PHQ-2 Depression Total Score: 2 01/19/20 23 11:22 AM EDT documented as of this encounter Care Teams Maintenance Groundman Relationship Specialty Start Date End Date Adair MejiaswDO [address] [place] [address], 2nd [place] [address] [email or web address] PCP - General Internal Medicine 08/22/21 Wanda Stern, KACY [address] [place] [address] [email or web address] PHCM Anchor Tack PullerManager Simulation 08/23/21 04/20/24 documented as of this encounter Additional Source Comments The information contained in this document represents components of the legal health record. It is not the complete legal health record.[facility]
--- OUTSIDE RECORDS SUMMARY | 2025-03-22 20:54 | XMS_ITS | Encounter Summary ---
Author Organization [facility] Address [address] [place] [address] [place] [address] Phone Care Team Providers Care Cash Poster Name Role Phone Willy Metcalf MD Unavailable [phone] Adair Mejias DO Primary Care Provider Wanda Stern RN Unavailable [phone] Adair Mejias DO Unavailable [phone] Encounter Details Date Type Department Care Team (Late st Contact Info) Description 09/16/2021 Ancillary Orders [facility] [place], [facility] 2 55 [facility], 2nd [place] [address] Blake Espinosa MD [email or web address] Encounter for imaging to screen for metal prior to MRI Social History Tobacco Use Types Packs/Day Years [...] Info) Description 04/13/2025 3:30 PM EST Telemedicine [facility] Department of Neurology 55 [facility], 8th Floor, [address] [place] [address] Christelle Phipps MD 55 [facility] 110 [place] [address] [email or web address] 05/01/2025 8:30 AM EST Telemedicine [facility] [address] [place] [address] Adair Mejias DO 170 [facility], 2nd [place] [address] [email or web address] 05/19/2025 4:00 PM EST Telemedicine [facility] Neurology Epilepsy [place] [address] [place] [address] Nina Chacon MD [address] [place] [address] Department of [id number] [place] [address] [email or web address] documented as of this encounter Results * XR ABDOMEN 1 VIEW (09/16/2021 11:48 AM EDT) Anatomical Region Laterality Modality Abdomen Computed Radiogr aphy 09/16/2021 1:22 PM EDT Impressions 09/16/2021 1:28 PM EDT FINDINGS/IMPRESSION: No evidence of spinal cord stimulator, retained stimulator fragment, or other radiopaque abdominopelvic foreign body. Nonobstructive bowel gas pattern. Vascular calcifications. Skeletal degenerative changes. ATTESTATION: I, Dr. Claude Fallon as teaching physician, have reviewed the images for this case and if necessary edited the report originally created by Dr. Ishmael Lopez. Narrative 09/16/2021 1:28 PM EDT XR RETAINED OBJECT - ABDOMEN & PELVIS, XR ABDOMEN 1 VIEW COMPARISON: None Procedure Note Claude Fallon MD - 09/16/2021 XR RETAINED OBJECT - ABDOMEN & PELVIS, XR ABDOMEN 1 VIEW COMPARISON: None IMPRESSION: FINDINGS/IMPRESSION: No evidence of spinal cord stimulator, retained stimulator fragment, orother radiopaque abdominopelvic foreign body. Nonobstructive bowel gaspattern. Vascular calcifications. Skeletal degenerative changes. ATTESTATION: I, Dr. Claude Fallon as teaching physician, have reviewedthe images for this case and if necessary edited the report originallycreated by Dr. Ishmael Lopez. us Blake Espinosa MD IMG XR ABDOMEN Fi nal Result documented in this encounter Visit Diagnoses Diagnosis Encounter for imaging to screen for metal prior to MRI Special screening for other specified conditions Encounter for imaging to screen for metal prior to MRI Special screening for other specified conditions documented in this encounter Additional Health Concerns [...] documented as of this encounter Care Teams Cash Poster Relationship Specialty Start Date End Date Adair Mejias DO [address] [place] [address] [email or web address] PCP - General Internal Medicine 08/22/21 Willy Metcalf MD [address] [place] [address] [email or web address] Assigned Provider 07/31/20 07/29/22 Wanda Stern, RN [address] [place] [id number] [email or web address] PHCM Parking Enforcement TechnicianTerritory Service Representative 08/23/21 04/20/24 Adair Mejias DO [address] [place] [address] [email or web address] Insurance Assigned Provider 07/29/22 11/26/22 documented as of this encounter Additional Source Comments The information contained in this document represents components of the legal health record. It is not the complete legal health record.[facility]
--- OUTSIDE RECORDS SUMMARY | 2025-03-22 20:54 | XMS_ITS | Encounter Summary ---
Author Organization [facility] Address [address] [place] [address] [place] [address] Phone Care Team Providers Care Executive Community Planning Name Role Phone Willy Metcalf MD Primary Care Provider [phone] Willy Metcalf MD Unavailable [phone] Adair Mejias DO Primary Care Provider Wanda Stern RN Unavailable [phone] Adair Mejias DO Unavailable [phone] Encounter Details Date Type Department Care Team (Late st Contact Info) Description 06/23/2021 Ancillary Orders [facility] [address] [place] [address] System, Provider Not In, [place] [address] Social History Tobacco Use Types Packs/Day Years Used Date Smoking Tobacco: Every Day Cigarettes Started: 1981 Smokeless Tobacco: Never Comments:down to 3 cigarette s a day Alcohol Use Standard Drinks/Week Comments No 0 [...] Info) Description 04/13/2025 3:30 PM EST Telemedicine [facility] Department of Neurology 55 [facility], 8th Floor, [address] [place] [address] Christelle Phipps MD [address] [place], [place] [address]fin[address] [place] [address] [email or web address] 05/01/2025 8:30 AM EST Telemedicine [facility] [address] [place] [address] Adair Mejias DO 170 [facility], 2nd [place] [address] [email or web address] 05/19/2025 4:00 PM EST Telemedicine [facility] Neurology Epilepsy [place] [address] [place] [address] Nina Chacon MD [address] [place] [address] Department of [id number] [place] [address] [email or web address] documented as of this encounter Results * CT Chest Outside (No Interpretation) (05/24/2021 12:00 AM EST) Narrative SYSTEMGENERATED, DOCUMENTATION - 06/23/2021 3:18 PM EST This study is for PACS storage only and not for interpretation. us Provider Not In System PhD IMG OUTSIDE IMAGING W /OUT INTERPRETATION Final Result documented in this encounter Visit Diagnoses Not on filedocumented in this encounter Additional Health Concerns Infection Onset Date Last Indicated Resolved Time COVID-19 12/13/2022 12/13/2022 01/03/2023 1:22 AM EDT CoV-Risk Comment:Per note documentation 05/18/2023 05/19/2023 9:48 AM EST COVID-19 12/31/2023 12/31/2023 01/21/2024 1:22 AM EDT Assessment Noted Time PHQ-9 Depression Total Score: 7 05/31/19 21 2:07 PM EST PHQ-2 Depression Total Score: 4 05/31/19 21 2:07 PM EST documented as of this encounter Care Teams Executive Community Planning Relationship Specialty Start Date End Date Willy Metcalf MD [address] [address] [email or web address] PCP - General Internal Medicine 02/10/17 08/21/21 Adair Mejias DO [address] [place] [address] [email or web address] PCP - General Internal Medicine 08/22/21 Willy Metcalf MD [address] [address] [email or web address] Insurance Assigned Provider 07/31/20 07/29/22 Wanda Stern, RN [address] [place] [id number] [email or web address] Brisket PullerFire Officer 08/23/21 04/20/24 Adair Mejias DO [address] [place] [address] [email or web address] Insurance Assigned Provider 07/29/22 11/26/22 documented as of this encounter Additional Source Comments The information contained in this document represents components of the legal health record. It is not the complete legal health record.[facility]
--- OUTSIDE RECORDS SUMMARY | 2025-03-22 20:54 | XMS_ITS | Encounter Summary ---
Author Organization [facility] Address [address] [place] [address] Phone Care Team Providers Care Carbon Coating Machine Operator Name Role Phone Adair Mejias DO Primary Care Provider Wanda Stern RN Unavailable [phone] Encounter Details Date Type Department Care Team (Late st Contact Info) Description 07/19/2023 Procedure Pass [facility] MRI, [place] 2 55 [facility], 2nd [place] [address] Social History Tobacco Use Types Packs/Day Years [...] with a working camera? Not on file Intimate Partner Violence Answer Date R ecorded Are you denied basic needs s uch as food, clothing, or medical care? No 06/22/2023 In the past 12 months have y ou been in a relationship with a person who hurts, threatens, or tries to control you? No 06/22/2023 Are you denied basic needs s uch as food, clothing, or medical care? No 06/22/2023 In the past 12 months have y ou been in a relationship with a person who hurts, threatens, or tries to control you? No 06/22/2023 Sex and Gender Information Value Date Recorded Sex Assigned at Not on file Legal Sex Male 9:41 PM EDT Gender Identity Not on file Sexual Orientation Not on file documented as of this encounter Plan of Treatment Upcoming Encounters Date Type Department Care Team (Late st Contact Info) Description 04/13/2025 3:30 PM EST Telemedicine [facility] Department of Neurology 55 [facility], 8th Floor, [address] [place] [address] Christelle Phipps MD 55 [facility] 110 [place] [phone] [email or web address] [email or web address] 05/01/2025 8:30 AM EST Telemedicine [facility] [address] [place] [address] [place] [address] Adair Mejias DO 170 [facility], 2nd [place] [address] [email or web address] 05/19/2025 4:00 PM EST Telemedicine [facility] Neurology Epilepsy [place] [address] [place] [address] Nina Chacon MD [address] [place] [address] Department of [id number] [place] [address] [email or web address] hima documented as of this encounter Visit Diagnoses Not on filedocumented in this encounter Additional Health Concerns Infection Onset Date Last Indicated Resolved Time COVID-19 12/31/2023 12/31/2023 01/21/2024 1:22 AM EDT Assessment Noted Time PHQ-9 Depression Total Score: 4 07/19/19 24 11:29 AM EDT PHQ-2 Depression Total Score: 2 07/19/19 24 11:29 AM EDT documented as of this encounter Care Teams Carbon Coating Machine Operator Relationship Specialty Start Date End Date Adair MejiaswDO [address] [place] [address], 2nd [place] [address] [email or web address] PCP - General Internal Medicine 08/22/21 Wanda Stern, KACY [address] [place] [phone] [email or web address] Face [email or web address] Passer 08/23/21 04/20/24 documented as of this encounter Additional Source Comments The information contained in this document represents components of the legal health record. It is not the complete legal health record.[facility]
--- OUTSIDE RECORDS SUMMARY | 2025-03-22 20:54 | XMS_ITS | Encounter Summary ---
Author Organization [facility] Address [address] [place] [address] [place] [address] Phone Care Team Providers Care Vice President Investor Relations Name Role Phone Adair Mejias DO Primary Care Provider Encounter Details Date Type Department Care Team (Late st Contact Info) Description 09/22/2024 Procedure Pass [facility] MRI 32 [facility], 6th [place] [address] Social History Tobacco Use Types Packs/Day Years [...] high school, GED, job training, learning the Luxembour[place] language, technical skills, or developing parenting skills)? [...] Info) Description 04/13/2025 3:30 PM EST Telemedicine [facility] Department of Neurology [address] [place] [address], 8th Floor, [address] [place] [address] Christelle Phipps MD [address] [place] [phone] [email or web address] hima 05/01/2025 8:30 AM EST Telemedicine [facility] [address] [place] [address] [place] [address] Adair Mejias DO 170 [facility], 2nd [place] [address] [email or web address] 05/19/2025 4:00 PM EST Telemedicine [facility] Neurology Epilepsy [place] [address] [place] [address] Nina Chacon MD [address] [place] [address] Department of [id number] [place] [address] [email or web address] documented as of this encounter Visit Diagnoses Not on filedocumented in this encounter Additional Health Concerns Assessment Noted Time PHQ-9 Depression Total Score: 4 10/04/19 24 3:43 PM EDT PHQ-2 Depression Total Score: 2 10/04/19 24 3:43 PM EDT documented as of this encounter Care Teams Vice President Investor Relations Relationship Specialty Start Date End Date Adair Mejias DO 170 [facility], [address] [place] [address] [email or web address] PCP - General Internal Medicine 08/22/21 documented as of this encounter Additional Source Comments The information contained in this document represents components of the legal health record. It is not the complete legal health record.[facility]
--- OUTSIDE RECORDS SUMMARY | 2025-03-22 20:54 | XMS_ITS | Encounter Summary ---
Author Organization [facility] Address [address] [facility] [address] [place] [address] Phone Care Team Providers Care Group Social Worker Name Role Phone Adair Mejias DO Primary Care Provider Reason for Visit * Reason Onset Date Comments Medication Refill 03/16/2025 Encounter Details Date Type Department Care Team (Late st Contact Info) Description 03/16/2025 Refill [facility] [address] [place], [place] [address] [place] [address] Didi Hardy 170 [place] [address] Medication Refill Social History Tobacco Use Types [...] high school, GED, job training, learning the Montenegrin language, technical skills, or developing parenting skills)? [...] as of this encounter Progress Notes * Didi Hardy - 03/16/2025 9:44 AM EST Images from the original note were not included. Rx Care Gap Status - Instructions for Clinical Staff (prescriber discretion applies): > Mismatch review guide > Check PDMP for all controlled medication requests. Visit Info Last visit: 11/18/2024 Adair Mejias, DO - Family Medicine [facility] > Requested f/u: Return in about 3 months (around 02/18/2025) for Recheck. Upcoming visit: 05/01/2025 Adair Mejias DO - Family Medicine [facility] ACTIONS TAKEN BY Didi Hardy - Checked PDMP/[place]. Non-Opioid Controlled Substance With PDMP Rx Protocol - clonazepam Renewal is at prescriber discretion. Visit in the past 12 months: Yes documented in this encounter Plan of Treatment Upcoming Encounters Date Type Department Care Team (Late st Contact Info) Description 04/13/2025 3:30 PM EST Telemedicine [facility] Department of Neurology [address] [place] [address], 8th Floor, [address] [place] [address] Christelle Phipps MD [address] [place] [address] 110 [place] [phone] [email or web address] 05/01/2025 8:30 AM EST Telemedicine [facility] [address] [place] [address] [place] [address] Adair Mejias DO 170 [facility], 2nd [place] [address] [email or web address] 05/19/2025 4:00 PM EST Telemedicine [facility] Neurology Epilepsy [address] [place] [address] Nina Chacon MD [address] [place] [address] Department of [id number] [place] [address] [email or web address] documented as of this encounter Visit Diagnoses Not on filedocumented in this encounter Additional Health Concerns Assessment Noted Time PHQ-9 Depression Total Score: 4 10/04/19 3:43 PM EDT PHQ-2 Depression Total Score: 2 10/04/19 3:43 PM EDT documented as of this encounter Care Teams Group Social Worker Relationship Specialty Start Date End Date Mejias, Adair JonathanDO [address] [place] [address], 2nd Floor [place] [id number] [email or web address] PCP - General Internal Medicine 08/22/21 documented as of this encounter Additional Source Comments The information contained in this document represents components of the legal health record. It is not the complete legal health record.[facility]
--- OUTSIDE RECORDS SUMMARY | 2025-03-22 20:54 | XMS_ITS | Encounter Summary ---
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 He is checking in to see if provider noticed any vocalization or movements of the arm while he was int he chair. He would like a follow up call to notate and he can turn in to hismedical provider documented in this encounter Plan of Treatment Not on file documented as of this encounter Visit Diagnoses Not on filedocumented in this encounter
--- OUTSIDE RECORDS SUMMARY | 2025-03-22 20:54 | XMS_ITS | Encounter Summary ---
Author Organization [facility] Address [address] [place] [address] [place] [address] Phone Care Team Providers Care Supervisor Fertilizer Processing Name Role Phone Mejias, Adair Silvaw Primary Care Provider Encounter Details Date Type Department Care Team ([facility] st Contact Info) Description 03/18/2025 Telephone [facility] 6 Neuro ICU [address] [place] [address] Corrie Bains MD, MBBS [address] [address] [email or web address] Social History Tobacco Use Types [...] high school, GED, job training, learning the Albanian language, technical skills, or developing parenting skills)? [...] as of this encounter Progress Notes * Corrie Bains MD, MBBS - 03/18/2025 9:11 AM EST Manny choked on some popcorn and threw up a small amount a little over an hour after taking his seizure medications. He did not see any medications in the vomitus. He had taken the medications a few hours after his meal. Based on timing, his medications have already passed through the stomach andno indication to repeat all the doses. However out of an abundance of caution I advised he can takean extra 1000mg of keppra. Corrie Bains MD [facility] Epilepsy Service documented in this encounter Plan of Treatment Upcoming Encounters Date Type Department Care Team (Late st Contact Info) Description 04/13/2025 3:30 PM EST Telemedicine [facility] Department of Neurology [address] [place] [address], 8th Floor, [address] [place] [address] Christelle Phipps MD [address] [place] [address] [address] [place] [id number] [email or web address] 05/01/2025 8:30 AM EST Telemedicine [facility] [address] [place] [address] Adair Mejias DO [address] [address] [email or web address] 05/19/2025 4:00 PM EST Telemedicine [facility] Neurology Epilepsy [place] [address] [place] [address] Nina Chacon MD [address] [place] [address] Department of Ls[address]FNSC[address] [place] [address] [email or web address] documented as of this encounter Visit Diagnoses Not on filedocumented in this encounter Additional Health Concerns Assessment Noted Time PHQ-9 Depression Total Score: 4 10/04/19 3:43 PM EDT PHQ-2 Depression Total Score: 2 10/04/19 3:43 PM EDT documented as of this encounter Care Teams Supervisor Fertilizer Processing Relationship Specialty Start Date End Date Adair Mejias DO [address] [place] [address], 2nd [facility] [place] [address] [email or web address] PCP - General Internal Medicine 08/22/21 documented as of this encounter Additional Source Comments The information contained in this document represents components of the legal health record. It is not the complete legal health record.[facility]
--- OUTSIDE RECORDS SUMMARY | 2025-03-22 20:54 | XMS_ITS | Encounter Summary ---
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 Procedures GABRIEL Evoked Additional Modality MT GABRIEL,EVOKED MAGNET VALENCIA, EA ADDL MODAL Jamal Lewis MD, PhD Phone: tel: fax: mailto:[email or web address] Referral ID Status Reason Start Date Expiration Date Visits Re quested Visits Authorized [id number] Closed 08/02/2023 08/22/2023 1 1 Encounter Details Date Type Department Care Team (Late st Contact Info) Description 07/23/2023 Ancillary Orders [facility] Neuro[facility] [address] [place] [address], 7th Floor, [address] [place] [address] Jamal Lewis MD, PhD [address] [place] [phone] [email or web address] 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 05/01/2025 8:30 AM EST Telemedicine [facility] [address] [place] [address] [place] [address] Adair Mejias DO 170 [facility], 2nd [place] [address] 05/19/2025 4:00 PM EST Telemedicine [facility] Neurology Epilepsy [place] [address] [place] [address] Nina Chacon MD [address] [place] [address] Department of [address] [place] [address] [email or web address] du documented as of this encounter Results * GABRIEL Evoked Additional Modality (08/02/2023 3:07 PM EDT) Anatomical Region Laterality Modality Head Magnetic Resonan ce 08/08/2023 8:41 AM EDT Impressions 08/23/2023 1:58 PM EDT 1. Frequent interictal spiking localized to the right temporal lobe. 2. Normal AEF, bilaterally. 3. Bilateral language lateralization based on a semantic decision task, with some left-hemisphere bias. Narrative 08/23/2023 1:58 PM EDT GABRIEL FOR EVOKED SINGLE MODALITY, GABRIEL EPILEPTIC LOCALIZATION, GABRIEL EVOKED ADDITIONAL MODALITY Referring clinician's provided indication for this examination in [facility]: presurgical evaluation for intractable epilepsy Review of the Electronic Medical Record reveals an additional history of: Manny Kearns is a 58-year-old RH male with intractable epilepsy. Seizure onset: Apr 2021 PH of malignant melanoma, low back pain (s/p spinal stimulator) semiology visual hallucination, staring off, non-convlusive status EMU (Apr, 2023) IID - Rt T Ictal - No clinical events, multiple SCDs with Rt T onset MRI - normal TECHNIQUE: After placing a 70-electrode electroencephalogram cap on the patient using the nose as a reference, the patient was escorted into the magnetically shielded room. As the patient was placed in the supine position, the head was positioned into the 306-channel GABRIEL gael. Five 10-minute sessions of spontaneous records were obtained while the patient was instructed to rest or sleep, as needed. The patient also had auditory, and language mapping. During the GABRIEL measurement, acoustic ripple pips (65dB SL) were presented through ear inserts. Next, the patient was asked to press a right or left button. Next, , words were presented on a screen and the subject was asked to determine if the words were abstract or concrete. At least 49-lpbjjwyr-cckc epochs were averaged prior to source analysis. The enclosed images depict magnetic mapping points superimposed on the patient's anatomic MRI. The circles represent the localization of the resulting equivalent current dipoles (ECDs), and the bars indicate the direction of the dipolar currents. The locations of the ECDs are not necessarily reflective of the location of activity. COMPARISON: MRI [id number], BRAIN PET 05/11/2023 FINDINGS: MAGNETOENCEPHALOGRAPHY (GABRIEL) MAPPING: SPONTANEOUS ACTIVITY BACKGROUND: EEG/GABRIEL was recorded during wakefulness (25 min) and sleep (25 min). The waking background consisted of regular 9-10 Hz alpha waves. Sleep record was obtained up to stage II sleep. Sleep spindles were seen bilaterally. PAROXYSM: INTERICTAL DISCHARGES: Very frequent spikes, spike and wave complexes (sp-w-cs) were seen predominantly in electrodes F8/T8/P8 on EEG. Corresponding GABRIEL showed spikes in the right temporal sensors (Fig. 1). These discharges sometimes formed a cluster lasting for several seconds (Fig. 2). ICTAL DISCHARGE: There were no ictal discharges, but several of the runs of spikes lasted for several seconds (subclinical dischareges) MAPPING WITH ANALYTICAL LAB ANALYST: Equivalent current dipoles (ECDs) at the peaks of GABRIEL spikes localized to the right temporal lobe. We evaluated ECDs according to the statistical criteria: goodness of fit (GOF) > 75%, dipolar current moment (Q) < 500nAm. EVOKED ACTIVITY AUDITORY EVOKED VALENCIA (AEF): P50m N100m Latency (ms) Left Ear - Left Hemisphere 55 131 Left Ear - Right Hemisphere 55 112 Right Ear - Left Hemisphere 57 154 Right Ear - Right Hemisphere 59 119 ECDs at P50m or N100m were localized in or near the posterior, superior temporal gyrus, as expected. LANGUAGE EVALUATION Abstract Byron task: <Dipole Counting Method> (Time Uchpuq=[id number]) Hit Rate= 78/160 (44.9 %). GOF=50% 60% 70% Laterality Index 0.09 0.17 0.27 Procedure Note Cole Denis MD - 08/23/2023 GABRIEL FOR EVOKED SINGLE MODALITY, GABRIEL EPILEPTIC LOCALIZATION, GABRIEL EVOKEDADDITIONAL MODALITY Referring clinician's provided indication for this examination in [facility]:presurgical evaluation for intractable epilepsy Review of the Electronic Medical Record reveals an additional historyof: Manny Kearns is a 58-year-old RH male with intractable epilepsy. Seizure onset: Apr 2021 PH of malignant melanoma, low back pain (s/p spinal stimulator) semiology visual hallucination, staring off, non-convlusive status EMU (Apr, 2023) IID - Rt T Ictal - No clinical events, multiple SCDs with Rt T onset MRI - normal TECHNIQUE: After placing a 70-electrode electroencephalogram cap on thepatient using the nose as a reference, the patient was escorted into themagnetically shielded room. As the patient was placed in the supineposition, the head was positioned into the 306-channel GABRIEL gael. Sipa75-[id number] sessions of spontaneous records were obtained while the patientwas instructed to rest or sleep, as needed. The patient also had auditory,and language mapping. During the GABRIEL measurement, acoustic ripple pips(65dB SL) were presented through ear inserts. Next, the patient was askedto press a right or left button. Next, , words were presented on a screenand the subject was asked to determine if the words were abstract orconcrete. At least 18-nriqsuyp-pwva epochs were averaged prior to sourceanalysis. The enclosed images depict magnetic mapping points superimposedon the patient's anatomic MRI. The circles represent the localization ofthe resulting equivalent current dipoles (ECDs), and the bars indicate thedirection of the dipolar currents. The locations of the ECDs are notnecessarily reflective of the location of activity. COMPARISON: MRI [id number], BRAIN PET 05/11/2023 FINDINGS: MAGNETOENCEPHALOGRAPHY (GABRIEL) MAPPING: SPONTANEOUS ACTIVITY BACKGROUND: EEG/GABRIEL was recorded during wakefulness (25 min) and sleep (25 min). Thewaking background consisted of regular 9-10 Hz alpha waves. Sleep recordwas obtained up to stage II sleep. Sleep spindles were seen bilaterally. PAROXYSM: INTERICTAL DISCHARGES: Very frequent spikes, spike and wave complexes (sp-w-cs) were seenpredominantly in electrodes F8/T8/P8 on EEG. Corresponding GABRIEL showedspikes in the right temporal sensors (Fig. 1). These discharges sometimesformed a cluster lasting for several seconds (Fig. 2). ICTAL DISCHARGE: There were no ictal discharges, but several of the runs of spikes lastedfor several seconds (subclinical dischareges) MAPPING WITH ANALYTICAL LAB ANALYST: Equivalent current dipoles (ECDs) at the peaks of GABRIEL spikes localized tothe right temporal lobe. We evaluated ECDs according to the statistical criteria: goodness of fit(GOF) > 75%, dipolar current moment (Q) < 500nAm. EVOKED ACTIVITY AUDITORY EVOKED VALENCIA (AEF): P50m N100m Latency (ms) Left Ear - Left Hemisphere 55 131 Left Ear - Right Hemisphere 55 112 Right Ear - Left Hemisphere 57 154 Right Ear - Right Hemisphere 59 119 ECDs at P50m or N100m were localized in or near the posterior,superior temporal gyrus, as expected. LANGUAGE EVALUATION Abstract Byron task: <Dipole Counting Method> (Time Tlylvs=[id number]) Hit Rate= 78/160 (44.9 %). GOF=50% 60% 70% Laterality Index 0.09 0.17 0.27 IMPRESSION: 1. Frequent interictal spiking localized to the right temporal lobe. 2. Normal AEF, bilaterally. 3. Bilateral language lateralization based on a semantic decision task,with some left-hemisphere bias. 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 documented in this encounter Additional Health Concerns Infection Onset Date Last Indicated Resolved Time COVID-19 12/31/2023 12/31/2023 01/21/2024 1:22 AM EDT Assessment Noted Time PHQ-9 Depression Total Score: 4 07/19/19 24 11:29 AM EDT PHQ-2 Depression Total Score: 2 07/19/19 24 11:29 AM EDT documented as of this encounter Care Teams Radiator Mechanic Relationship Specialty Start Date End Date Adair Mejias DO [address] [place] [address], 2nd [place] [address] [email or web address] PCP - General Internal Medicine 08/22/21 Wanda Stern, KACY [address] [place] [address] PHCM Label CutterSenior Government Program Analyst 08/23/21 04/20/24 documented as of this encounter Additional Source Comments The information contained in this document represents components of the legal health record. It is not the complete legal health record.[facility]
--- OUTSIDE RECORDS SUMMARY | 2025-03-22 20:54 | XMS_ITS | Encounter Summary ---
Author Organization [facility] Address [address] [place] [address] [place] [address] Phone Care Team Providers Care Art Dealer Name Role Phone Willy Metcalf MD Unavailable [phone] Adair Mejias DO Primary Care Provider Wanda Stern RN Unavailable [phone] Adair Mejias DO Unavailable [phone] Encounter Details Date Type Department Care Team (Late st Contact Info) Description 09/02/2021 Procedure Pass [facility] - MRI [address] [facility], 6th [place] [address] Social History Tobacco Use Types Packs/Day Years [...] Info) Description 04/13/2025 3:30 PM EST Telemedicine [facility] Department of Neurology [address] [facility], 8th Floor, [address] [place] [address] Christelle Phipps MD [address] [place] [phone] [email or web address] 05/01/2025 8:30 AM EST Telemedicine [facility] [address] [place] [address] [place] [address] Adair Mejias DO 170 [facility], 2nd [place], [place] [email or web address] 05/19/2025 4:00 PM EST Telemedicine [facility] Neurology Epilepsy [place] [address] [place] [address] Nina Chacon MD [address] [place] [address] Department of [address] [address] [email or web address] documented as of this encounter Visit [...] documented as of this encounter Care Teams Art Dealer Relationship Specialty Start Date End Date Adair Mejias DO 170 [facility], [address] [place] [address] [email or web address] PCP - General Internal Medicine 08/22/21 Willy Metcalf MD [address] [place] [address] [email or web address] Insurance Assigned Provider 07/31/20 07/29/22 Wanda Stern, RN [address] [place] [id number] [email or web address] [facility] Learning FacilitatorCustomer Success Intern 08/23/21 04/20/24 Adair Mejias DO [address] [place] [address], 2nd [place] [address] [email or web address] Insurance Assigned Provider 07/29/22 11/26/22 documented as of this encounter Additional Source Comments The information contained in this document represents components of the legal health record. It is not the complete legal health record.[facility]
--- OUTSIDE RECORDS SUMMARY | 2025-03-22 20:54 | XMS_ITS | Encounter Summary ---
Author Organization [facility] Address [address] [facility] [address] [place] [address] Phone Care Team Providers Care Software Testing Specialist Name Role Phone Adair Mejias DO Primary Care Provider Wanda Stern RN Unavailable [phone] Reason for Visit * Reason Onset Date Comments Medication Question 01/03/2024 Shortness of Breath 01/03/2024 Red call COVID-19 Inquiry 01/03/2024 Encounter Details Date Type Department Care Team (Late st Contact Info) Description 01/03/2024 Nurse Triage [facility] [address] [place] [address] Adair Mejias DO [address] [facility], 2nd [place] [address] [email or web address] Medication Question; Shortness of Breath (Red call ); COVID-19 Inquiry Social History Tobacco Use Types Packs/Day Years [...] as of this encounter Progress Notes * Fatuma Vallejo, RN - 01/07/2024 12:45 PM EDT Started Paxlovid last Sunday stopped Benzo's but was not advised to stop anything else. Took 1 three times today for 5 days and sent messages asking if he needed to increase dose. Messages were forwarded to provider but did not get answered as of yet. Did speak with after-hours nurse Sunday night and advised to throw the rest of the Paxlovid away, but likely did not do anything for him. Reason for Disposition [1] MILD difficulty breathing (e.g., minimal/no SOB at rest, SOB with walking, pulse <100) AND [2] new-onset Protocols used: Coronavirus (COVID-19) Persisting Symptoms Follow-up [facility]TX[facility] Nurse Triage Encounter Note Reason for Triage Manny Kearns contacted office for Medication Question Shortness of Breath Red call COVID-19 Inquiry Call Disposition Schedule Same Day Visit/Appt Disposition Comments: Patient/caregiver understands and will follow disposition: Yes Initial Symptom Screening and Assessment IA Symptom Onset 7 days/1 week Symptom Severity Severe - unable to do normal activities Symptom Pattern Constant/continuous Aggravating factors or triggers Other (comment) Home Treatments OTC Medications; Prescribed Medications Location? Chest Fever? Yes Recent surgery? No Known allergy? No Recent travel? No Recent exposure to sick contact? No Other related symptoms Cough productive for greenish/coffee colored sputum, can't get out of bed, hasn't done anything all week or weekend, feels terrible. Breathing or Chest Symptoms (Resp/Cardiac) Respiratory symptoms Productive cough; Other (comment); Fatigue; Shortness of breath Recurrent symptom? No Respiratory history? Yes Condition COPD Treatment Betamethasone Inhaler Cardiac history No Injury to chest? No Artificial airway or appliances? No Other breathing or chest symptoms? ABle to talk in full sentences Care Advice Patient/Caregiver understands and will follow care advice?: Yes, plans to follow advice Coronavirus (COVID-19) Persisting Symptoms Follow-up Xrol-OWPAO-ND Fatuma Vallejo RN Sun 12:58 PM Disposition and First Aid GO TO OFFICE NOW: * You need to be examined. Come into the office right now. * IF NO AVAILABLE APPOINTMENTS: You need to be seen in an Urgent Care Center. Go to the one at [facility].Leave now. A nearby Urgent Care Center is often a good source of care. Another choice is to go to the Emergency Department. Patient will call back with additional questions or if symptoms change or worsen Fatuma Vallejo RN Reason for Disposition and Assessment Video appt scheduled for today at 1:15 pm * Tatum Nolasco - 01/04/2024 2:59 PM EDT Patient called in stating he was informed to take paxlovid 3 tablets a day spread out through out the day because of other medications he is currently taking. Patient stated he has been doing this since Sunday and he is still not feeling better. Patient stated he would like to know if he should go ahead and take the full recommended dosage. Please contact and advise. Central Support Front Office Administrator (Please do not reply to this user; this inbox is not monitored.) Thank you. * Zina Cervantes - 01/04/2024 2:13 PM EDT Patient lvm upset that he hasn't heard from anyone regarding medication questions since Sunday. He is asking for a call before the end of the day * Miracle Penn RN - 01/03/2024 3:40 PM EDT Routed to pcp for review and further advise 2nd request from pt - 1st is portal message already sent to pcp. * Den Mcnair - 01/03/2024 12:02 PM EDT Thank you for allowing the [facility] to be part of your care today, assisting with: Patient Advice Pt lvm on triage line. Pt is taking paxlovid and the provider who prescribed it told pt to contact PCP. Pt sent a message in and received no response and is wondering if he did something incorrectly.Please advise. Central Support Front Office Administrator (Please do not reply to this user; this inbox is not monitored.) Thank you. documented in this encounter Plan of Treatment Upcoming Encounters Date Type Department Care Team (Late st Contact Info) Description 04/13/2025 3:30 PM EST Telemedicine [facility] Department of Neurology [address] [place] [address], 8th Floor, [address] [place] [address] Christelle Phipps MD [address] [place] [phone] [email or web address] 05/01/2025 8:30 AM EST Telemedicine [facility] [address] [place] [address] [place] [address] Adair Mejias DO [address] [place] [address], 2nd [place] [address] [email or web address] 05/19/2025 4:00 PM EST Telemedicine [facility] Neurology Epilepsy [place] [address] [place] [address] Nina Chacon MD [address] [facility] Department of [address] [place] [address] [email or web address] documented as of this encounter Visit Diagnoses Not on filedocumented in this encounter Additional Health Concerns Infection Onset Date Last Indicated Resolved Time COVID-19 12/31/2023 12/31/2023 01/21/2024 1:22 AM EDT Assessment Noted Time PHQ-9 Depression Total Score: 4 10/04/19 3:43 PM EDT PHQ-2 Depression Total Score: 2 10/04/19 3:43 PM EDT documented as of this encounter Care Teams Software Testing Specialist Relationship Specialty Start Date End Date Adair Mejias DO [address] [place] [address], 2nd [place] [address] [email or web address] PCP - General Internal Medicine 08/22/21 Wanda Stern, RN [address] [place] [address] [email or web address] PHCM Collection TellerStructural Steel Worker 08/23/21 04/20/24 documented as of this encounter Additional Source Comments The information contained in this document represents components of the legal health record. It is not the complete legal health record.[facility]
--- OUTSIDE RECORDS SUMMARY | 2025-03-22 20:54 | XMS_ITS | Clinical Summary ---
Author Organization [employer] Address [address] [place] [address] [address] [place] [address] Care Team Providers Care Concrete Engineer Name Role Phone Unavailable Primary Care Provider [...] ium Nitrate 1.1-5 % pasteIndication s:Dental caries [place] teeth for 2 minutes, morning and night. [...] Overview (11/15/2023): Followed by [facility] in [place]. He had seen Dr. Amanda Landaverde for Psychotherapy Last Assessment & Plan: Improved on current medication, mostly now seems to be secondary to his medical issues causing depressed mood. Continue current medication with no changes at this time. Failed back syndrome 11/15/2023 Overview (11/15/2023): Status post laminectomy x2-1992 and 1993. History of spinal cord stimulator implant 1998, removed 6m after. Followed by [facility] for episodic cortisone shots Last Assessment & Plan: Continues to have ongoing back issues, follows with [facility] pain management, with good control of [...] Overview (11/15/2023): Followed by [facility] Sears in [place], he has seen Dr. 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 Referral placed to urology for evaluation. Seizure (CMS/HCC) 06/09/2021 Overview (11/15/2023): Last Assessment & Plan: [...] Encounters Date Type Department Care Team Description 03/17/2025 3:00 PM EST Office Visit [facility] [address] [place] [address] Caleb Russo DMD Denture irritation (Primary Dx) 03/03/2025 2:30 PM EST Office Visit [facility] [address] [place] [address] Caleb Russo DMD Denture irritation (Primary Dx) 02/23/2025 2:30 PM EST Office Visit [facility] [address] [place] [address] Caleb Russo DMD Denture irritation (Primary Dx) 02/17/2025 2:00 PM EDT Office Visit [facility] [address] [place] [address] Caleb Russo DMD Partial edentulism, unspecified edentulism class (Primary Dx) 02/06/2025 8:30 AM EDT Office Visit [facility] [address] [place] [address] Caleb Russo DMD Dental caries (Primary Dx); Partial edentulism, unspecified edentulism class 01/26/2025 3:00 PM EDT Office Visit [facility] [address] [place] [address] Caleb Russo DMD Partial edentulism, unspecified edentulism class (Primary Dx); Dental caries 01/15/2025 11:00 AM EDT Office Visit [facility] [address] [place] [address] Caleb Russo DMD Dentin hypersensitivity (Primary Dx) 01/01/2025 Telephone [facility] [address] [place] [address] Abraham vocalization seizures 12/31/2024 2:00 PM EDT Office Visit [facility] [address] [place] [address] Caleb Russo DMD Dental caries (Primary Dx) from Last 3 Months Social [...] Sign Reading Time Taken Comments Blood Pressure 118/78 02/06/2025 8:52 AM EDT Pulse 65 12/13/2023 8:03 AM [...] of 3 - 19+ 3-dose series) 1984 RSV Patients and Patients Aged 60 years or older (1 - Risk 50-74 years 1-dose series) 2015 Pneumococcal Vaccine: 50+ Years (3 of 3 - PCV20 or PCV21) 11/28/2020 11/29/2015, 04/23/2010 COVID-19 Vaccine ( season) 2024 04/04/2022, 11/08/2021, 02/18/2021, Additional history exists Influenza Vaccine (#1) 2024 , 05/13/2021, 04/29/2020, Additional history exists Dental Oral Exam 07/01/2025 12/31/2024, , 02/14/2021, Additional history exists Dental Prophylaxis 07/01/2025 12/31/2024, 0 12/13/2023, 11/08/2020 Dental X-Ray: Bitewings 01/01/2026 01/01/20 25, 10/15/2024, 11/15/2023, Additional history exists Tobacco Screening 03/17/2026 03/17/2025 Dental X-Ray: Full Mouth 11/15/2026 11/15/2023, 02/22 DTaP/Tdap/Td Vaccines (2 - Td or Tdap) 02/04/2029 02/04/2019 Zoster Vaccines Completed 09/18/2017, 07/10/2017 HIB Vaccines [...] Routine 03/17/2025 3:00 PM EST Denture irritation DENTURE FOLLOWUP Routine 03/17/2025 3:00 PM EST Denture irritation DENTURE FOLLOWUP Routine 03/03/2025 2:30 PM EST Denture irritation DENTURE FOLLOWUP Routine 02/23/2025 2:30 PM EST Denture irritation 30,18,19 MANDIBULAR PARTIAL DENTURE - RESIN BASE (INCLUDING, RETENTIVE/CLASPING MATERIALS, RESTS, AND TEETH) Routine 02/17/2025 2:00 PM EDT Partial edentulism, unspecified edentulism class 2,3,4,5 MAXILLARY PARTIAL DENTURE - RESIN BASE (INCLUDING, RETENTIVE/CLASPING MATERIALS, RESTS, AND TEETH) Routine 02/17/2025 2:00 PM EDT Partial edentulism, unspecified edentulism class CASE PRESENTATION, DETAILED AND EXTENSIVE TREATMENT PLANNING Routine 02/06/2025 8:30 AM EDT Dental caries Partial edentulism, unspecified edentulism class 11 DIL RESIN-BASED COMPOSITE - 3 SURF, ANTERIOR Routine 02/06/2025 8:30 AM EDT Dental caries WAX TRY IN Routine 02/06/2025 8:30 AM EDT Partial edentulism, unspecified edentulism class BITE REGISTRATION Routine 01/26/2025 3:0 0 PM EDT Dental caries Partial edentulism, unspecified edentulism class CASE PRESENTATION, DETAILED AND EXTENSIVE TREATMENT PLANNING Routine 01/15/2025 11:00 AM EDT Dentin hypersensitivity DENTURE IMPRESSION Routine 01/15/2025 11 :00 AM EDT Dentin hypersensitivity 6 L RESIN-BASED COMPOSITE - 1 SURF, ANTERIOR Routine 01/15/2025 11:00 AM EDT Dentin hypersensitivity CASE PRESENTATION, DETAILED AND EXTENSIVE TREATMENT PLANNING Routine 12/31/2024 2:00 PM EDT Dental caries 21 B(V) RESIN-BASED COMPOSITE - 1 SURF, POSTERIOR Routine 12/31/2024 2:00 PM EDT Dental caries 20 MODB(V) RESIN-BASED COMPOSITE - 4+ SURF, POSTERIOR Routine 12/31/2024 2:00 PM EDT Dental caries PERIODIC ORAL EVALUATION - ESTABLISHED PATIENT Routine 12/31/2024 2:00 PM EDT Dental caries BITEWINGS - 4 RADIOGRAPHIC IMAGES Routine 12/31/2024 2:00 PM EDT Dental caries PROPHYLAXIS - ADULT Routine 12/31/2024 2 :00 PM EDT Dental caries INTRAORAL - COMPLETE SERIES OF RADIOGRAPHIC IMAGES Routine 11/15/2023 1:30 PM EDT Dental caries from Last 3 Months or Most Recently Relevant to Health Maintenance Insurance DENTAL-[facility] MEDICAID STAND ADULT
--- OUTSIDE RECORDS SUMMARY | 2025-03-22 20:54 | XMS_ITS | Encounter Summary ---
Author Organization [facility] Address [address] [place] [address] [place] [address] Phone Care Team Providers Care High School Science Tutor Name Role Phone Willy Metcalf MD Unavailable [phone] Adair Mejias DO Primary Care Provider Wanda Stern RN Unavailable [phone] Adair Mejias DO Unavailable [phone] Encounter Details Date Type Department Care Team (Late st Contact Info) Description 09/15/2021 Ancillary Orders [facility] MRI, [facility] 2 55 [facility], 2nd [place] [address] Blake Espinosa MD [email or web address] Encounter for imaging to screen for metal [...] Info) Description 04/13/2025 3:30 PM EST Telemedicine [facility] Department of Neurology [address] [facility], 8th Floor, [address] [place] [address] Christelle Phipps MD 55 [facility] [address] [place] [address] [email or web address] 05/01/2025 8:30 AM EST Telemedicine [facility] [address] [place] [address] Adair Mejias DO 170 [facility], 2nd [place] [address] [email or web address] 05/19/2025 4:00 PM EST Telemedicine [facility] Neurology Epilepsy [place] [address] [place] [address] Nina Chacon MD [address] [place] [address] Department of [email or web address] [place] [address] [email or web address] documented as of this encounter Results * XR RETAINED OBJECT - ABDOMEN & PELVIS (09/16/2021 10:46 AM EDT) Anatomical Region Laterality Modality Abdomen [...] documented as of this encounter Care Teams High School Science Tutor Relationship Specialty Start Date End Date Adair Mejias DO [address] [place] [phone] [email or web address] PCP - General Internal Medicine 08/22/21 Willy Metcalf MD [address] [place] [address] [email or web address] Insurance Assigned Provider 07/31/20 07/29/22 Wanda Stern, RN [address] [place] [address] [email or web address] PHCM Malt Specifications Control AssistantDenier Control Operator 08/23/21 04/20/24 Adair Mejias DO [address] [place] [address] [email or web address] Insurance Assigned Provider 07/29/22 11/26/22 documented as of this encounter Additional Source Comments The information contained in this document represents components of the legal health record. It is not the complete legal health record.[facility]
--- OUTSIDE RECORDS SUMMARY | 2025-03-22 20:54 | XMS_ITS | Encounter Summary ---
Author Organization [facility] Address [address] [facility] [address] [place] [address] Phone Care Team Providers Care Laboratory Administrative Director Name Role Phone Adair Mejias DO Primary Care Provider Encounter Details Date Type Department Care Team (Late st Contact Info) Description 09/08/2024 Procedure Pass [facility] PERIOPERATIVE DEPT [address] [place] [phone] Social History Tobacco Use Types Packs/Day Years [...] high school, GED, job training, learning the Vincentian language, technical skills, or developing parenting skills)? [...] Risk Indicated 09/09/2024 3:02 PM EDT Ellen White, KACY * [place] Suicide Severity Rating Scale (Screener/Recent Self-Report) Question Answer Date of Assessment Author 1. Wish to be (Past 1 Month) No 025 3:02 PM EDT Ellen White, RN 2. Non-Specific Active Suici ross Thoughts (Past 1 Month) No 09/09/2024 3:02 PM EDT Elliott White, RN 6. Suicidal Behavior (Lifetime) No 3:02 PM EDEllen Celaya, RN documented as of this encounter Plan of Treatment Upcoming Encounters Date Type Department Care Team (Late st Contact Info) Description 04/13/2025 3:30 PM EST Telemedicine [facility] Department of Neurology 55 [facility], 8th Floor, [address] [place] [address] Christelle Phipps MD 55 [facility] [address] [place] [phone] [email or web address] 05/01/2025 8:30 AM EST Telemedicine [facility] [address] [place] [address] [place] [address] Adair Mejias DO [address] [place] [address], [address] [place] [address] [email or web address] 05/19/2025 4:00 PM EST Telemedicine [facility] Neurology Epilepsy [place] [address] [place] [address] Nina Chacon MD [address] [place] [address] Department of [email or web address] [place] [address] [email or web address] documented as of this encounter Visit Diagnoses Not on filedocumented in this encounter Additional Health Concerns Assessment Noted Time PHQ-9 Depression Total Score: 4 10/04/19 3:43 PM EDT PHQ-2 Depression Total Score: 2 10/04/19 3:43 PM EDT documented as of this encounter Care Teams Laboratory Administrative Director Relationship Specialty Start Date End Date Adair Mejias DO 170 [facility], 2nd [place] [address] [email or web address] PCP - General Internal Medicine 08/22/21 documented as of this encounter Additional Source Comments The information contained in this document represents components of the legal health record. It is not the complete legal health record.[facility]
--- OUTSIDE RECORDS SUMMARY | 2025-03-22 20:54 | XMS_ITS | Encounter Summary ---
Author Organization [facility] Address [address] [place] [address] Phone Care Team Providers Care Bucket Wash Operator Name Role Phone Adair Mejias DO Primary Care Provider Wanda Stenr RN Unavailable Encounter Details Date Type Department Care Team (Late st Contact Info) Description 07/19/2023 Procedure Pass [facility] MRI, [place] 2 55 [facility], 2nd [place] [address] Social History Tobacco Use Types Packs/Day Years [...] [facility] Department of Neurology 55 [facility], 8th Floor, [address] [place] [address] Christelle Phipps MD 55 [facility] 110 [place] [phone] [email or web address] 05/01/2025 8:30 AM EST Telemedicine [facility] [address] [place] [address] [place] [address] Adair Mejias DO 170 [facility], 2nd [place] [address] [email or web address] 05/19/2025 4:00 PM EST Telemedicine [facility] Neurology Epilepsy [place] [address] [place] [address] Nina Chacon MD [address] [place] [address] Department of [id number] [place] [address] [email or web address] documented as of this encounter Visit Diagnoses Not on filedocumented in this encounter Additional Health Concerns Infection Onset Date Last Indicated Resolved Time COVID-19 12/31/2023 12/31/2023 01/21/2024 1:22 AM EDT Assessment Noted Time PHQ-9 Depression Total Score: 4 07/19/19 24 11:29 AM EDT PHQ-2 Depression Total Score: 2 07/19/19 24 11:29 AM EDT documented as of this encounter Care Teams Bucket Wash Operator Relationship Specialty Start Date End Date Adair MejiaswDO [address] [place] [address], 2nd [place] [address] [email or web address] PCP - General Internal Medicine 08/22/21 Wanda Stern, KACY [address] [place] [id number] .[employer] PHCM Industrial PharmacistCommunications Lead 08/23/21 04/20/24 documented as of this encounter Additional Source Comments The information contained in this document represents components of the legal health record. It is not the complete legal health record.[facility]
--- OUTSIDE RECORDS SUMMARY | 2025-03-22 20:54 | XMS_ITS | Encounter Summary ---
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 Procedures GABRIEL For Evoked Single Modality WI GABRIEL,EVOKED MAGNET VALENCIA, SINGLE MODAL Jamal Lewis MD, PhD Phone: tel: fax: [email or web address] Referral ID Status Reason Start Date Expiration Date Visits Re quested Visits Authorized [id number] Closed 08/02/2023 08/22/2023 1 1 Encounter Details Date Type Department Care Team (Late st Contact Info) Description 07/23/2023 Ancillary Orders [facility] Neurosurgery 55 [facility], 7th Floor, [address] [place] [address] Jamal Lewis MD, PhD [address] [place] [phone] [email or web address] 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 05/01/2025 8:30 AM EST Telemedicine [facility] [address] [place] [address] [place] [address] Adair Mejias DO 170 [facility], 2nd [place] [address] 05/19/2025 4:00 PM EST Telemedicine [facility] Neurology Epilepsy [place] [address] [place] [address] Nina Chacon MD [address] [place] [address] Department of [id number] [place] [address] [email or web address] documented as of this encounter Results * GABRIEL For Evoked Single Modality (08/02/2023 3:07 PM EDT) Anatomical Region [...] clinician's provided indication for this examination in [facility]: presurgical evaluation for intractable epilepsy Review [...] words were abstract or concrete. At least 77-unpdozso-lgly epochs were averaged prior to source analysis. The enclosed images depict magnetic mapping points superimposed on the patient's anatomic MRI. The circles represent the localization of the resulting equivalent current dipoles (ECDs), and the bars indicate the direction of the dipolar currents. The locations of the ECDs are not necessarily reflective of the location of activity. COMPARISON: MRI [id number], BRAIN PET 05/11/2023 FINDINGS: MAGNETOENCEPHALOGRAPHY (GABRIEL) MAPPING: [...] for several seconds (subclinical dischareges) MAPPING WITH GEAR CHANGER: Equivalent current dipoles (ECDs) at the peaks [...] temporal gyrus, as expected. LANGUAGE EVALUATION Abstract [place] task: <Dipole Counting Method> (Time Kgyugz=669-929ut) Hit Rate= 78/160 (44.9 %). GOF=50% 60% 70% Laterality Index 0.09 0.17 0.27 Procedure Note Cole Denis MD - 08/23/2023 GABRIEL FOR EVOKED SINGLE MODALITY, GABRIEL EPILEPTIC LOCALIZATION, GABRIEL EVOKEDADDITIONAL MODALITY Referring clinician's provided indication for this examination in [facility]:presurgical evaluation for intractable epilepsy Review of [...] was positioned into the 306-channel GABRIEL gael. Cpeb14-zcegmf sessions of spontaneous records were obtained while [...] the words were abstract orconcrete. At least 14-jyallffi-dddq epochs were averaged prior to sourceanalysis. The enclosed images depict magnetic mapping points superimposedon the patient's anatomic MRI. The circles represent the localization ofthe resulting equivalent current dipoles (ECDs), and the bars indicate thedirection of the dipolar currents. The locations of the ECDs are notnecessarily reflective of the location of activity. COMPARISON: MRI [id number], BRAIN PET 05/11/2023 FINDINGS: MAGNETOENCEPHALOGRAPHY (GABRIEL) MAPPING: [...] lastedfor several seconds (subclinical dischareges) MAPPING WITH GEAR CHANGER: Equivalent current dipoles (ECDs) at the peaks [...] temporal gyrus, as expected. LANGUAGE EVALUATION Abstract [place] task: <Dipole Counting Method> (Time Icziht=107-241ys) Hit Rate= 78/160 (44.9 %). GOF=50% 60% [...] as of this encounter Care Teams Customer Relations Specialist Relationship Specialty Start Date End Date Adair Mejias DO [address] [place] [address], 2nd [place] [address] PCP - General Internal Medicine 08/22/21 Wanda Stern, KACY [address] [place] [address] PHCM Manager [employer] Golden Gate Developer 08/23/21 04/20/24 documented as of this encounter Additional Source Comments The information contained in this document represents components of the legal health record. It is not the complete legal health record.[facility]
--- OUTSIDE RECORDS SUMMARY | 2025-03-22 20:54 | XMS_ITS | Clinical Summary ---
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 90 tablet 3 1 Active melatonin 3 mg Tab Take 6 mg by mouth. 2 Active acetaminophen (TYLENOL) 325 mg tablet Take 2 tablets (650 mg total) by mouth every 6 (six) hours as needed for headache. 5 Active docusate sodium (COLACE) 100 MG capsule Take 1 capsule (100 mg total) by mouth 2 (two) times a day. 30 capsule 5 Active senna (SENOKOT) 8.6 mg tablet Take 1 tablet by mouth 2 (two) times a day. 30 tablet 5 Active lacosamide (VIMPAT) 150 mg TabIndications:T emporal lobe epilepsy, intractable Take 1 tablet (150 mg total) by mouth 2 (two) times a day. 180 tablet 1 5 05/10/19 26 Active zonisamide (ZONEGRAN) 100 MG capsuleIndicatio ns:Temporal lobe epilepsy, intractable Take 4 capsules (400 mg total) by mouth nightly at bedtime. TAKE 4 CAPSULES(400 MG) BY MOUTH DAILY 360 capsule 1 5 06/17/19 26 Active FLUoxetine (PROZAC) 20 MG capsule Take 2 capsules (40 mg total) by mouth daily. 180 capsule 3 5 Active levETIRAcetam (KEPPRA) 500 MG tabletIndication s:Intractable epilepsy with status epilepticus, unspecified epilepsy type Take 3 tablets (1,500 mg total) by mouth 2 (two) times a day. 540 tablet 1 5 08/05/19 26 Active ALPRAZolam (XANAX) 0.5 MG tabletIndication s:Generalized anxiety disorder,Panic attacks Take 1 tablet (0.5 mg total) by mouth 3 (three) times a day. 90 tablet 5 Active clonazePAM (KLONOPIN) 2 MG tablet Take 1 tablet (2 mg total) by mouth nightly at bedtime. 60 tablet 5 Active clonazePAM (KLONOPIN) 2 MG tablet Take 1 tablet (2 mg total) by mouth nightly at bedtime. 60 tablet 5 03/16/20 25 Discontinu ed(Reorder ) ALPRAZolam (XANAX) 0.5 MG tablet Take 1 tablet (0.5 mg total) by mouth 3 (three) times a day. 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 Referral placed to urology for evaluation. Temporal lobe epilepsy, intractable 06/09/2021 Assessment & Plan (11/19/2024 10:29 PM EDT): Improved and well-healing after surgery. No new symptoms or concerns currently. He is concerned how he would know if he is having seizures as he often did not know before. He reports no one has noted symptoms around him. Assessment & Plan (11/18/2024 12:16 PM EDT): >>ASSESSMENT AND PLAN FOR SEIZURE WRITTEN ON 06/25/2023 1:41 PM BY JAMES MEJIAS DO >>ASSESSMENT AND PLAN FOR SEIZURE DISORDER WRITTEN ON 08/28/2021 10:17 PM BY JAMES MEJIAS DO Referral placed to [facility] neurology per patient request for second opinion. Advised continue Trileptal for now unless rash significantly worsens, at which time he should contact his neurologist to discuss alternative before stopping. Due to difficulties for patient regarding transportation we will place [facility] referral for assistance. Assessment & Plan (11/18/2024 12:16 PM EDT): >>ASSESSMENT AND PLAN FOR SEIZURE WRITTEN ON 06/25/2023 1:41 PM BY JAMES MEJIAS DO >>ASSESSMENT AND PLAN FOR SEIZURE DISORDER WRITTEN ON 10/09/2021 10:56 PM BY JAMES MEJIAS DO Now hooked in with epileptologist-patient feels comfortable with his new neurologist, has upcoming EEG. We will be trialing coming off Trileptal soon once Keppra at effective level. Advised to continue to follow with neurology for medication management. Assessment & Plan (11/18/2024 12:16 PM EDT): >>ASSESSMENT AND PLAN FOR SEIZURE WRITTEN ON 06/25/2023 1:41 PM BY JAMES MEJIAS DO >>ASSESSMENT AND PLAN FOR SEIZURE DISORDER WRITTEN ON 11/14/2021 10:29 PM BY JAMES MEJIAS DO Patient with continued seizures despite being on Trileptal and Keppra, hopefully will do better with Zonegran and Keppra. Continue to follow with epilepsy clinic for management. Assessment & Plan (11/18/2024 12:16 PM EDT): >>ASSESSMENT AND PLAN FOR SEIZURE WRITTEN ON 06/25/2023 1:41 PM BY JAMES MEJIAS DO >>ASSESSMENT AND PLAN FOR SEIZURE DISORDER WRITTEN ON 12/30/2021 9:58 PM BY JAMES MEJIAS DO Patient has had no improvement since starting Zonegran in addition to Keppra, continues to have staring/muttering spells. Advised follow-up with epilepsy clinic to discuss poor response. Assessment & Plan (11/18/2024 12:16 PM EDT): >>ASSESSMENT AND PLAN FOR SEIZURE WRITTEN ON 06/25/2023 1:41 PM BY JAMES MEJIAS DO >>ASSESSMENT AND PLAN FOR SEIZURE DISORDER WRITTEN ON 02/22/2022 9:06 PM BY JAMES MEJIAS DO Patient did have witnessed event today in office consistent with his prior description for seizure events which are absence type-rocked forward several times and repeated umm, yearvind can see visible change in patient's facial expression when he came out of seizure event, seem to have lost his place in the discussion, however was able to be prompted back into easily. Did not realize he had event. We will be following up with epileptology as scheduled, has upcoming home EEG planned. This will give a better idea for his seizure burden. Continue current medications without changes at this time. Assessment & Plan (11/18/2024 12:16 PM EDT): >>ASSESSMENT AND PLAN FOR SEIZURE WRITTEN ON 06/25/2023 1:41 PM BY JAMES MEJIAS DO >>ASSESSMENT AND PLAN FOR SEIZURE DISORDER WRITTEN ON 10/30/2022 11:14 PM BY JAMES MEJIAS DO Patient's epilepsy does seem to be somewhat better controlled at this visit. He is disheartened that he is on 3 medications and was still having seizures back in April, however we discussed that he has not had any known seizures since increasing medication in May. He does have follow-up upcoming with neurologist- recommend discussion with his neurologist as far as whether or not he is due for a repeat EEG. If we believe that he is seizure-free since increasing dose in May, then he may be closer than he thinks to being able to return to activity. This visibly brightens patient's mood as we discussed that he does seem to be making progress. We will continue to monitor. Follow-up as planned with neurology. Assessment & Plan (11/18/2024 12:16 PM EDT): >>ASSESSMENT AND PLAN FOR SEIZURE WRITTEN ON 06/25/2023 1:41 PM BY JAMES MEJIAS, >>ASSESSMENT AND PLAN FOR SEIZURE DISORDER WRITTEN ON 02/25/2023 11:30 PM BY JAMES MEJIAS DO Stable and improved, continue current medications as prescribed by neurology. Unclear if he meets criteria for returning to driving would recommend discussion with neurology. This would be a significant improvement to his life if he is safe to return. Continue monitoring. Assessment & Plan (11/18/2024 12:16 PM EDT): >>ASSESSMENT AND PLAN FOR SEIZURE WRITTEN ON 06/25/2023 1:43 PM BY JAMES MEJIAS, No consensus plan for what to do about need for further testing in setting of many subclinical events and now the need for an observed home EEG. Will coordinate care with his Neurology team to discuss and plan appropriate management in this difficult case. Assessment & Plan (11/18/2024 12:16 PM EDT): >>ASSESSMENT AND PLAN FOR SEIZURE WRITTEN ON 09/20/2024 3:32 PM BY JAMES MEJIAS DO Patient reports no known seizures since procedure completed. Continue monitoring. 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 He is s/p R REGGIE in spring 2024 with pathology consistent with mesial temporal sclerosis. He has had a seemingly favorable response thus far although true seizure burden is challenging to gauge as he lives alone. We again reviewed that this intervention seems reasonably likely to improve seizure burden,. He will discuss with Dr Lewis's team some questions regarding post-surgical recovery process. From an epilepsy perspective, expect him to require ASMs for a least 1-2 years after surgery. If he remains clinically seizure-free, we may then consider weaning polytherapy and may use repeat EEG to guide decision-making. 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 - Discussed importance of abstaining from behaviors that would lower seizure threshold, including avoiding missed ASM doses, severe sleep deprivation, substance intoxication, etc - Advised patient carry adequate supply of medication on his person and carry-on luggage when traveling, and endeavor to adhere to BID schedule within reason of time zone changes - Appreciate ongoing psychiatric management of mood by Dr Phipps. We have previously discussed role of standing benzodiazepines, including the inadvisability of mixing two short-acting benzodiazepines. Risks of therapy include respiratory depression, tolerance, paradoxical excitatory response, and withdrawal seizures. - Follow up 6 months Assessment & Plan (08/06/2024 11:20 PM EDT): Seems to have increased seizure symptoms, unclear if there is a true increase in his baseline seizures. Either way agree with planned temporal lobe resection as he has not been well-controlled despite combination treatment with zonisamide, Keppra, Vimpat, and clonazepam. 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 He is planned for R REGGIE in early 2024 but hopefully will get off the cancellation list sooner. We reviewed that this intervention seems highest likelihood of improving seizure burden compared to additional medication trials. However, expect him to require ASMs for a least a year after surgery, so we can adjust his regimen for side effects in the interim. He can consolidate zonisamide dosing to qhs to minimize fatigue or dizziness. Suspect he would not tolerate higher dose of lacosamide for sodium channel effects. Levetiracetam appears to be worsening mood effects but is not maximized; we discussed option of levetiracetam XR at slightly higher dose vs switching to brivaracetam and ultimately agreed on the latter to start with. - Switch levetiracetam 1000mg BID to brivaracetam 100mg BID; if cost-prohibitive then would change to 1000/1500mg of LEV XR - Continue lacosamide 150mg BID - Can change zonisamide to 400mg qhs - Appreciate upcoming right REGGIE with Dr Lewis - Will plan for post operative NPT once he has recovered adequately from surgery, to gauge new baseline - We discussed role of standing benzodiazepines, including the inadvisability of mixing two short-acting benzodiazepines. Risks of therapy include respiratory depression, tolerance, paradoxical excitatory response, and withdrawal seizures. Note that even on this longstanding regimen, his mood remains poorly controlled. He independently expresses desire to be on less of these medications. He is actively seeking a new psychiatric provider, and is amenable to referral to Dr Christelle Phipps in the interim to readdress his psychotropic regimen. Encouraged him to continue with local psychology sessions as well - Follow up in 3 months prior to REGGIE; if REGGIE is moved up then we will likely follow up in the postoperative period instead Assessment & Plan (12/09/2023 2:08 PM EDT): Continued intractable temporal lobe epilepsy not responding well to current treatment. We discussed benefits of surgical procedure but also comes with risks which would need to be further clarified with neurosurgery for patient to be able to make adequate informed consent. He is in agreement and will discuss this further. Continue monitoring as patient did have seizure event while we had visit today. Psoriasis 02/04/2019 Assessment & Plan (10/30/2022 11:12 PM EDT): Stable well-controlled on current medication, no change at this time. Continue monitoring. Assessment & Plan (02/22/2022 9:10 PM EDT): Psoriasis mildly improved since last visit, however still has problematic skin lesions over large body surface area. Suspect patient would benefit from specialty care recommendations, encouraged to follow-up with dermatology as planned. Continue use of tacrolimus, steroid-based creams as needed. Assessment & Plan (12/30/2021 9:57 PM EDT): New referral to outside dermatology placed as previous referral will not be able to get him in in the near future. We will trial tacrolimus as it can be used over a larger area including regions like the groin if needed. Can continue to use betamethasone sparingly. Advised follow-up with dermatology [facility] for evaluation for potential systemic treatment. Assessment & Plan (11/14/2021 10:29 PM EDT): Patient with ongoing issues with psoriasis, did not improve despite stopping Trileptal. Suspect after 3 weeks of being off medication that he would be showing improvement. Referral placed to external dermatology for evaluation and discussion of treatment options. Assessment & Plan (10/09/2021 10:55 PM EDT): Patient with guttate psoriasis, advised on continued use of betamethasone for problematic areas, careful Jas therapy versus follow-up with dermatology for controlled UV treatment. Agree with neurology plan to hopefully switch off Trileptal as that seemed to be the problematic cause of his worsening psoriasis. Stress may also be playing a portion, hopefully will improve as patient is feeling more control over his life. Continue to monitor. Referral placed to dermatology for follow-up on this as well as his prior history of malignant melanoma. Assessment & Plan (08/28/2021 10:18 PM EDT): Patient with known history of psoriasis, now with new skin rash, unclear if related. Psoriasis typically responds well to clobetasol, would like refill. Order placed today. 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 Formerly followed by Dr. Kerr Anxiety disorder Overview (11/26/2017): Followed by [facility] in [place], he has seen Dr. Angelina Landaverde for Psychotherapy History of duodenal ulcer Overview (11/14/2019): diagnosed by endoscopy around 1984 Depression Overview (05/31/2020): Followed by [facility] in [place]. He had seen Dr. Amanda Landaverde for Psychotherapy Assessment & Plan (10/30/2022 11:15 PM EDT): Improved on current medication, mostly now seems to be secondary to his medical issues causing depressed mood. Continue current medication with no changes at this time. Assessment & Plan (11/14/2021 10:27 PM EDT): Patient with a history of depression and anxiety which has been worsened due to his medical conditions recently. Had been well controlled on fluoxetine 40 mg. Offered option to increase dose, states he previously had increased dose in the past to 60 mg and felt overmedicated. Discussed option for alternate medication, states he also has tried Effexor in the past which also made him not feel well. We discussed that likely improving some aspect of his medical condition would overall help his mood as he feels helpless in his current state. Offered to change medications as above should he feel he needs it-would consider increased dose of fluoxetine to 60 mg daily/split 30 mg twice daily versus trial of Cymbalta. This at least gives patient the opportunity to dictate some of his own care and feels some power over and otherwise help with situation. History of malignant melanoma Overview (12/09/2020): Status post sentinel node removal right axilla and right groin which were negative 07/02. Followed by Dr. [facility] Panic attacks Pulmonary nodules Overview (06/09/2021): stable Failed back syndrome Overview (10/09/2021): Status post laminectomy x2-1992 and 1993. History of spinal cord stimulator implant 1998, removed 6m after. Followed by [facility] for episodic cortisone shots Assessment & Plan (10/09/2021 10:57 PM EDT): Continues to have ongoing back issues, follows with [facility] pain management, with good control of symptoms, however patient unable to work and has not changed. Form completed with patient in office today. Resolved Problems Problem Noted Date Diagnosed Date Resolved Date Rash and other nonspecific skin eruption 08/28/2021 11/14/2021 Assessment & Plan (08/28/2021 10:19 PM EDT): Unclear if rash is drug rash versus psoriasis versus other including something significant such as Arboleda-Seven syndrome in an early form. Advised to watch rash for significant worsening. Econsult placed to dermatology due to limited availability of in person office visits. Tobacco dependence syndrome 09/24/2017 08/22/2021 Encounters Date Type Department Care Team Description 03/20/[address] [place] [address] James Mejias, DO Medication Problem 03/20/2025 Orders Only [facility] [address] [place] [address] ProviderHope MD 03/18/2025 Telephone [place] [address] Neuro ICU [address] [place] [phone] Corrie Bains MD, MBBS 03/16/[address] [place] [address] Didi Hardy Medication Refill 03/10/[address] [place] [address] Sasha Solano, MARII Medication Refill 03/10/[address] [place] [address] James Mejias, Medication Refill 02/27/[address] [place] [address] James Mejias, 02/06/[address] [place] [address] Didi Hardy Medication Refill 01/21/2025 4:00 PM EDT Telemedicine [facility] Neurosurgery [address] [facility], 7th Floor, [address] [place] [address] Jamal Lewis MD, PhD Temporal lobe epilepsy, intractable (Primary Dx) 01/12/2025 11:30 AM EDT Telemedicine [facility] Department of Neurology [address] [facility], 8th Floor, [address] [place] [address] Christelle Phipps MD EVE (generalized anxiety disorder) (Primary Dx); Panic disorder 01/09/2025 1:26 PM EDT - 01/09/2025 11:59 PM EDT Hospital Encounter [facility] - MRI [address] [facility], 6th [place] [address] Dayanara Daniels PA-C Discharge Disposition: Home or Self Care 01/06/2025 Refill [facility] [address] [place] [address] Lisa Olsen MA Medication Refill (Clonazepam and alprazolam ) 12/26/2024 Nurse Triage [facility] [address] [place] [address] Arianna Ritchie PA-C Cough (After hours call ); Eye Drainage (After hours call ) 12/26/2024 Telephone [facility] [address] [place] [address] James Mejias, DO Medication Problem 09/22/2024 Procedure Pass [facility] - MRI [address] [facility], 6th [place] [address] from Last 3 Months Immunizations Immunization Administration Dates Next Due COVID-19 (Pre-02/12) Moderna Vaccine, mRNA, PF 02/18/2021,07/20/2020,06/22/2020 INFLUENZA, SPLIT VIRUS, TRIVALENT PF 12/29/2016, 11/29/2015 INFLUENZA, SPLIT VIRUS, TRIV ALENT W/ PRESERVATIVE IM 02/23/2011,01/04/2010,02/19/2008 Influenza Quadrivalent MDCK Preservative Free IM 01/30/2022 Influenza Quadrivalent Prese rvative Free IM 05/19/2023(Deferred: Patient Refused),05/13/2021,04/29/2020, 015 Influenza Recombinant Hilda valent Preservative Free IM 02/04/2019 Pneumococcal conjugate PCV13 11/29/2015 Pneumococcal polysaccharide PPSV23 04/23/2010 Tdap 02/04/2019 Zoster recombinant 09/18/2017,07/10/2017 Family History Medical History Relation Comments Alcohol abuse Father Drug abuse Father Diabetes mellitus Maternal Grandmother Hypertension Maternal Grandmother Other Mother intracranial ble ed after a fall at 71 Pneumonia Mother Due to Covid, 20 22 Colon cancer Neg Hx Prostate cancer Neg Hx Relation Status Comments Father (Age 47) drug overdose Maternal Grandmother Mother (Age 72) of Covid pneumonia Social History Tobacco Use Types Packs/Day Years Used Date Smoking Tobacco: Former Cigarettes 1 40 1 982 - 05/09/2021 Smokeless Tobacco: Never Tobacco Cessation:Counseling Given: Not Answered Alcohol Use Standard Drinks/Week Comments No 0 [...] high school, GED, job training, learning the [place] language, technical skills, or developing parenting skills)? [...] on file Sexual Orientation Not on file Last Filed Vital Signs Vital Sign Reading Time Taken Comments Blood Pressure 122/62 09/18/2024 1:02 PM EDT Pulse 73 09/18/2024 1:02 PM EDT Temperature 36.7 C (98 F) 09/18/2024 1:02 PM EDT Respiratory Rate 16 09/11/2024 11:20 AM EDT Oxygen Saturation 98% 09/18/2024 1:02 PM EDT Inhaled Oxygen Concentration - - Weight 78 kg (172 lb) 09/18/2024 1:02 PM EDT Height 177.8 cm (5' 10 ) 09/08/2024 6:00 AM EDT Body Mass Index 24.68 09/08/2024 6:00 AM EDT Plan of Treatment Upcoming Encounters Date Type Department Care Team (Late st Contact Info) Description 04/13/2025 3:30 PM EST Telemedicine [facility] Department of Neurology [address] [place] [address], 8th Floor, [address] [place] [id number] Christelle Phipps MD [address] [place] [phone] [email or web address] 05/01/2025 8:30 AM EST Telemedicine [facility] [address] [place] [address] James Mejias DO [address] [facility], 2nd [place] [address] [email or web address] 05/19/2025 4:00 PM EST Telemedicine [facility] Neurology Epilepsy [place] [address] [place] [address] Nina Chacon MD [address] [facility] Department of [address] [place] [address] [email or web address] Due Date Last Done Comments COLONOSCOPY 2010 FIT TEST 2010 FOBT 2010 SIGMOIDOSCOPY 2010 VIRTUAL COLONOSCOPY 2010 LUNG CANCER SCREENING (LDCT Only) 2015 RSV VACCINE (1 - Risk 50-74 years 1-dose series) 2015 PNEUMOCOCCAL VACCINES (50+ years) (3 of 3 - PCV20 or PCV21) 11/28/2020 11/29/2015, 04/23/2010 LIPID PANEL 02/05/2024 02/04/2019, 02/04/2019 DEPRESSION SCREENING 10/03/2024 10/04/2023, 10/04/19 24 INFLUENZA VACCINE (#1) 2024 2, 01/30/2022, 05/13/2021, Additional history exists COVID-19 VACCINE ( season) 2024 04/04/2022, 11/08/2021, 02/18/2021, Additional history exists SMOKING Hx and SMOKELESS TOBACCO SCREENING 01/12/2026 01/12/2025 COLOGUARD 03/13/2028 03/13/2025 COLORECTAL CANCER SCREENING 03/13/2028 Adult Td,Tdap Booster 02/04/2029 02/04/2019 ZOSTER VACCINES Completed 09/18/2017, 07/10/2017 HEPATITIS C SCREENING Completed 11/27/2017 HIV ONE-TIME SCREENING (18-65 YEARS) Completed 02/04/2019, 11/27/2017 HEPATITIS A VACCINES Aged Out No long er eligible based on patient's age to complete this topic HIB VACCINES Aged Out No longer eligi ble based on patient's age to complete this topic MENINGOCOCCAL VACCINES (ACWY) Aged Out No longer eligible based on patient's age to complete this topic MENINGOCOCCAL VACCINES (B) Aged Out N o longer eligible based on patient's age to complete this topic Medical Devices Implanted Type Area Nursing Informatics Clinical Analyst Device Identifier Shelf Expiration Date Model / Serial / Lot Cover Ponce 17mm Hole Matrixneruo Titanium - [id number] Implanted:Qty: 1 on 09/08/2024 by Danielle Lu MD at [facility] [facility] Right: Scalp [employer] 04.503.0 23 / / Description:also 2 squares Bone Plate 0.4x12mm 2 Hole Cranial Matrixneuro Ti Straight Rigid - [id number] Implanted:Qty: 5 on 09/08/2024 by Danielle Lu MD at [facility] Right: Scalp [employer] 04.503.0 62 / / Screw Bone 1.5x4mm Ti Self Drilling Matrixneuro Pk/5ea - [id number] Implanted:Qty: 24 on 09/08/2024 by Danielle Lu MD at [facility] Right: Scalp [employer] 04.503.1 04.05 / / Matrix Dura 4x5in [place] Plus - [id number] Implanted:Qty: 1 on 09/08/2024 by Danielle Lu MD at [facility] Right: Brain MARIE CRANIOMAXILLOFACIAL DI 06/21/2027 [id number] / / [id number] Procedures Procedure Name Priority Date/Time Associated Diagnosis Comments ANI (EXACT SCI[employer]ES) (NON-MGB) Routine 03/13/2025 9:59 AM EST MRI BRAIN (3T EPILEPSY) WITHOUT CONTRAST Routine 01/09/2025 4:04 PM EDT Seizure LIPID PANEL Routine 02/04/2019 11:32 AM EDT Routine general medical examination at a health care facility OUTSIDE HIV Routine 11/27/2017 from Last 3 Months or Most Recently Relevant to Health Maintenance Results * Cologuard ([employer]) (Non-MGB) (03/13/2025 9:59 AM EST) Stool (Per Rectum) us Historical Provider BODY FLUIDS AND STOOLS OR DERABLES Edited Result - Final * MRI BRAIN (3T EPILEPSY) WITHOUT CONTRAST (01/09/2025 4:04 PM EDT) Anatomical Region Laterality Modality Head Magnetic Resonan ce 01/10/2025 7:59 PM EDT Impressions 01/10/2025 10:14 PM EDT 1. Status post resection of the right anterior temporal lobe and anterior portion of the right mesial temporal lobe. Expected postoperative changes within the surgical bed. T2/FLAIR hyperintensity along the surgical margin in the right anterior temporal lobe, with few cystic areas deep to the surgical margin, and an area of T2/FLAIR hyperintensity in the right temporal stem, likely representing changes from gliosis and Wallerian degeneration along the white matter tracts. 2. No evidence of acute infarction, hemorrhage, or a mass lesion. Narrative 01/10/2025 10:14 PM EDT MRI BRAIN (3T EPILEPSY) WITHOUT CONTRAST Referring clinician's provided indication for this examination in Epic: * Seizure, abnormal neuro exam; 3 months s/p R REGGIE TECHNIQUE: Multi-sequence, multi-planar MRI of the brain was performed without intravenous contrast. COMPARISON: MRI BRAIN WITH AND WITHOUT CONTRAST FINDINGS: Brain Parenchyma: The patient is status post resection of the right anterior temporal lobe and anterior portion of the right mesial temporal lobe. Expected postoperative changes are noted within the surgical bed. There is a T2/FLAIR hyperintensity along the surgical margin in the right anterior temporal lobe, with few cystic areas deep to the surgical margin. In addition, there is an area of T2/FLAIR hyperintensity in the right temporal stem, measuring approximately 2.2 cm in the AP dimension, and measuring approximately 2.4 cm transverse and 1.5 cm SI. These likely represent changes from gliosis and wallerian degeneration along the white matter tracts. Laterally, these changes extend into the right superior temporal gyrus. The left hippocampus demonstrates normal internal architecture and signal intensity. No evidence of cortical dysplasia or heterotopia in the left hippocampus. No evidence of acute infarct, mass lesion or hemorrhage. Few scattered foci of T2/FLAIR hyperintensity in subcortical and periventricular white matter are nonspecific and may represent microangiopathic white matter ischemic changes. Ventricular System and Extra-Axial Spaces: Normal. No evidence of midline shift or hydrocephalus. Extracranial Structures: Expected arterial flow signal is observed at the skull base. The globes and orbits are unremarkable. The visualized paranasal sinuses are clear. The visualized temporal bone structures are normal. The mastoid air cells are clear. Procedure Note Esequiel Rand MD, PhD - 01/10/2025 MRI BRAIN (3T EPILEPSY) WITHOUT CONTRAST Referring clinician's provided indication for this examination in [facility]: *Seizure, abnormal neuro exam; 3 months s/p R REGGIE TECHNIQUE: Multi-sequence, multi-planar MRI of the brain was performedwithout intravenous contrast. COMPARISON: MRI BRAIN WITH AND WITHOUT CONTRAST FINDINGS: Brain Parenchyma: The patient is status post resection of the right anterior temporal lobeand anterior portion of the right mesial temporal lobe. Expectedpostoperative changes are noted within the surgical bed. There is aT2/FLAIR hyperintensity along the surgical margin in the right anteriortemporal lobe, with few cystic areas deep to the surgical margin. Inaddition, there is an area of T2/FLAIR hyperintensity in the righttemporal stem, measuring approximately 2.2 cm in the AP dimension, andmeasuring approximately 2.4 cm transverse and 1.5 cm SI. These likelyrepresent changes from gliosis and wallerian degeneration along the whitematter tracts. Laterally, these changes extend into the right superiortemporal gyrus. The left hippocampus demonstrates normal internal architecture and signalintensity. No evidence of cortical dysplasia or heterotopia in the lefthippocampus. No evidence of acute infarct, mass lesion or hemorrhage. Few scattered foci of T2/FLAIR hyperintensity in subcortical andperiventricular white matter are nonspecific and may representmicroangiopathic white matter ischemic changes. Ventricular System and Extra-Axial Spaces: Normal. No evidence of midlineshift or hydrocephalus. Extracranial Structures: Expected arterial flow signal is observed at theskull base. The globes and orbits are unremarkable. The visualized paranasal sinuses are clear. The visualized temporal bone structures are normal. The mastoid air cellsare clear. IMPRESSION: 1. Status post resection of the right anterior temporal lobe and anteriorportion of the right mesial temporal lobe. Expected postoperative changeswithin the surgical bed. T2/FLAIR hyperintensity along the surgical marginin the right anterior temporal lobe, with few cystic areas deep to thesurgical margin, and an area of T2/FLAIR hyperintensity in the righttemporal stem, likely representing changes from gliosis and Walleriandegeneration along the white matter tracts. 2. No evidence of acute infarction, hemorrhage, or a mass lesion. us Dayanara Daniels PA-C IMG MR HEAD/NECK Final Res ult * (ABNORMAL) Lipid panel (02/04/2019 11:32 AM EDT) HDL 38 mg/dL [facility] Comment: Interpretation <40 mg/dL: Low HDL cholesterol (major risk factor for CHD) Greater than or equal to 60 mg/dL: High HDL cholesterol ( negative risk factor for CHD) HDL - cholesterol is affected by a number of factors, e.g. smoking, excerise, hormones, sex and age. CHOLESTEROL 115 0 - 240 mg/dL [facility] TRIGLYCERIDES 50 30 - 160 mg/dL [facility] LDL 67 50 - 129 mg/dL [facility] Comment: LDL levels in terms of risk for coronary heart disease: <100 mg/dL: Optimal 100-129 mg/dL: Near or above optimal 130-159 mg/dL: Borderline high 160-189 mg/dL: High >190 mg/dL: Very High CARDIAC RISK RATIO 3.0(L) 3.4 - 5.0 [facility] Blood 02/04/2019 11:3 2 AM EDT 02/04/2019 11:35 AM EDT us Willy Metcalf MD LAB BLOOD BKR ORDERABLES F inal Result [facility] [address] [place] [address] * OUTSIDE HIV TEST (11/27/2017) HIV - External Neg us Historical Provider LAB BLOOD ORDERABLES Preeti l Result from Last 3 Months or Most Recently Relevant to Health Maintenance Insurance MEDICARE PART A & B Member Subscriber Plan / Payer (Ef fective 1995-Present) Name:Manny Kearns Member ID:[id number] Relation to Subscriber:Self Name:Manny Kearns Subscriber ID:[id number] Payer ID:[id number] Group ID:Not on file Type:Medicare Address: [employer] [facility] [address] [facility][1] [place] [address] [facility] AET[employer] PPO MEDICARE REPLACEMENT MEDICARE PART A & B Member Subscriber Plan / Payer (Ef fective 1995-Present) Name:Manny Kearns Member ID:[id number] Relation to Subscriber:Self Name:Som Manny Subscriber ID:[id number] Payer ID:[id number] Group ID:Not on file Type:Medicare Address: [employer] [facility] [address] [place] [address] [facility] [place] [address] AETNA O MEDICARE REPLACEMENT MEDICARE PART A & B FULL MEDICARE PART A & B Member Subscriber Plan / Payer (Ef fective 1995-Present) Name:Gabbysimone Manny Member ID:[id number] Relation to Subscriber:Self Name:Manny Kearns Subscriber ID:[id number] Payer ID:[id number] Group ID:Not on file Type:Medicare Address: [employer] [address] HEALTH SAFETY NET FULL MEDICARE PART A & B HEALTH SAFETY NET FULL Member Subscriber Plan / Payer (Ef fective 2017-Present) Name:Reggie Kearnshen Relation to Subscriber:Self Name:Som Manny Payer ID:Not on file Group ID:Not on file Type:Medicaid Address: [address] AETNA PPO MEDICARE REPLACEMENT MEDICARE PART A & B [facility] FULL MEDICARE PART A & B [facility] RE[facility] MEDICARE PART A & B [facility] [place] [address] [place] [address] [facility] MEDICARE PART A & B HEALTH SAFETY NET FULL Member Subscriber Plan / Payer (Ef fective 2017-Present) Name:Manny Kearns Relation to Subscriber:Self Name:Manny Kearns Payer ID:Not on file Group ID:Not on file Type:Medicaid Address: [address] AET[employer] PPO MEDICARE REPLACEMENT Advance Directives For more information, please contact: [phone] (9AM - 5PM [facility], Sunday-Sunday) Documents on File Type Date Recorded Patient Director Epidemiology Expl anation Healthcare Proxy 05/10/2023 7:25 PM * Full Code (Latest Code Status on File) Date Activated Date Inactivated Comments 09/08/2024 5:24 PM Question Answer Comments Code Status Confirmed With: Other (specify below ) Code Status Communicated To: Inpatient Attending Code Discussion Comments: Presumed s/p surgery * Periop Full Code Date Activated Date Inactivated Comments 09/08/2024 9:09 AM 09/08/2024 5:24 PM Question Answer Comments Code Status Communicated To: Other (specify belo w) Code Discussion Comments: Jenni-op Adjustment * DNR/DNI (No CPR/No Intubation) Date Activated Date Inactivated Comments 05/10/2023 3:44 PM 09/08/2024 9:09 AM Question Answer Comments Code Status Confirmed With: Patient Care Teams Main Line Station Engineer Relationship Specialty Start Date End Date James Mejias DO [address] [place] [address], [address] [place] [address] [email or web address] PCP - General Internal Medicine 08/22/21 Additional Source Comments The information contained in this document represents components of the legal health record. It is not the complete legal health record.Formerly [facility]
--- OUTSIDE RECORDS SUMMARY | 2025-03-22 20:55 | XMS_ITS | Encounter Summary ---
Author Organization [employer] Address [address] [place] [address] [address] [place] [address] Care Team Providers Care Guide Name Role Phone Unavailable Primary Care Provider Unavailabl e Encounter Details Date Type Department Care Team (Latest Contact Info) Description 03/12/2019 Abstract [facility] CONVERSIONS Dental, Provider, DDS Social History Tobacco Use Types Packs/Day Years Used Date Smoking Tobacco: Never Assessed Sex and Gender Information Value Date Recorded Sex Assigned at Male 02/20/2022 10:22 AM EDT Legal Sex Male 10:22 AM EDT Gender Identity Male 02/20/2022 10:22 AM EDT Sexual Orientation Choose not to disclose 2021 10:22 AM EDT documented as of this encounter Plan of Treatment Not on file documented as of this encounter Visit Diagnoses Not on filedocumented in this encounter
--- OUTSIDE RECORDS SUMMARY | 2025-03-22 20:55 | XMS_ITS | Encounter Summary ---
Author Organization [employer] Address [address] [place] [address] [address] [place] [address] Care Team Providers Care Assistant Grocery Name Role Phone Unavailable Primary Care Provider Unavailabl e Encounter Details Date Type Department Care Team (Latest Contact Info) Description 02/14/2021 Abstract [facility] CONVERSIONS Dental, Provider, DDS Social History Tobacco [...]
--- OUTSIDE RECORDS SUMMARY | 2025-03-22 20:55 | XMS_ITS | Encounter Summary ---
Author Organization [employer] Address [address] [place] [address] [address] [place] [address] Care Team Providers Care Cop Winder Name Role Phone Unavailable Primary Care Provider Unavailabl e Encounter Details Date Type Department Care Team (Latest Contact Info) Description 01/28/2020 Abstract [facility] CONVERSIONS Dental, Provider, DDS Social History [...]
[2025-03-22 21:47] VITALS: BP 122/73; PULSE 68; RESP 16; TEMP 36.8; O2SAT 97
[2025-03-23 00:50] VITALS: BP 121/67; PULSE 60; RESP 16; TEMP 37; O2SAT 95
--- NOTE | 2025-03-23 01:12 | PC.NURSE ---
Called [facility] for results.
--- NOTE | 2025-03-23 01:38 | PC.NURSE ---
provider into assess pt.
--- NOTE | 2025-03-23 02:00 | PC.NURSE ---
pt able to speak in full sentence, no sign of distress, reports able to swallow but with several attempts, provider into discuss ct results and the next plan of care, reviewed discharge instructions with pt. pt verbalized understanding, no sign of distress upon discharge, pt had a steady gait.
[2025-03-23 02:01] VITALS: BP 121/67; PULSE 60; RESP 16; TEMP 37; O2SAT 95
== END 2025-03-23 02:02 | disposition home or self-care (01) ==
PROVIDERS: Emergency Provider Emergency Medicine; PCP Pediatrics
DX: R13.10 Dysphagia, unspecified (principal); R09.A2 Foreign body sensation, throat; R91.1 Solitary pulmonary nodule; G40.909 Epilepsy, unspecified, not intractable, without status epilepticus
CPT/HCPCS: 70360; 71250; 99284

== ENCOUNTER → 2025-03-22 15:12 | Outpatient (BNV) | payer MEDICARE, MEDICAID, SELFPAY | PROVIDERS: Visit Provider Radiology Diagnostic Radiology | DX: M54.2 Cervicalgia (principal) | CPT/HCPCS: 70360; 71250 ==

== ENCOUNTER 2025-04-13 14:10 | Outpatient (REF) | payer MEDICARE, MEDICAID, SELFPAY ==
--- OUTSIDE RECORDS SUMMARY | 2021-10-20 11:45 | XMS_ITS | Encounter Summary ---
Author Organization [facility] Address [address] [place] [address] Phone Care Team Providers Care Packaging Inspector Name Role Phone Willy Metcalf MD Unavailable [phone] Adair Mejias DO Primary Care Provider Wanda Stern RN Unavailable [phone] Encounter Details Date Type Department Care Team (Late st Contact Info) Description 10/20/2021 12:45 PM EDT Hospital Encounter [facility] Department of Neurology 55 [facility], [address] [place] [address], [address] [place] [address] Blake Espinosa MD [email or web address] Social History Tobacco Use Types Packs/Day Years Used Date Smoking Tobacco: Former Cigarettes 1 40 1 982 - 05/09/2021 Smokeless Tobacco: Never Alcohol Use Standard Drinks/Week Comments No 0 (1 standard drink = 0.6 oz pur e alcohol) Child or Family Care Answer Date Record ed Do you have problems with on e of the following making it difficult for you to work, study, or receive health care? No 08/15/2024 Education Answer Date Recorded Are you interested in help w ith more adult education (for example, completing high school, GED, job training, learning the Wallisian language, technical skills, or developing parenting skills)? No 08/15/2024 Are you concerned about learning? Not on file 08/15/2024 No 08/15/2024 Yes 08/15/2024 Food Answer Date Recorded Within the past 6 months we worried whether our food would run out before we got money to buy more. Never True 09/09/2024 Within the past 6 months the food we bought just didn't last and we didn't have enough money to get more. Never True Residential Stability Answer Date Recor ded What is your housing situation today? I have paco sing 09/09/2024 How many times have you move d in the past 12 months? Zero (I did not move) 09/09/2024 Paying for Meds Answer Date Recorded Do you have trouble paying for medicines? No 09/09/2024 Paying Utility Bills Answer Date Record ed Do you have trouble paying your heating or elect ricity bill? No 09/09/2024 Transportation Answer Date Recorded Has the lack of transportati on kept you from medical appointments or from getting medications? Yes 09/09/2024 Digital Access Answer Date Recorded No 09/09/2024 Yes 09/09/2024 Do you have reliable internet access at home? Ye s 09/09/2024 Do you have a device (e.g., phone, tablet, computer) with a working camera? Yes 09/09/2024 Intimate Partner Violence Answer Date R ecorded Are you denied basic needs s uch as food, clothing, or medical care? No 09/09/2024 In the past 12 months have y ou been in a relationship with a person who hurts, threatens, or tries to control you? No 09/09/2024 Are you denied basic needs s uch as food, clothing, or medical care? No 09/09/2024 In the past 12 months have y ou been in a relationship with a person who hurts, threatens, or tries to control you? No 09/09/2024 Sex and Gender Information Value Date Recorded Sex Assigned at Not on file Legal Sex Male 9:41 PM EDT Gender Identity Not on file Sexual Orientation Not on file documented as of this encounter Plan of Treatment Upcoming Encounters Date Type Department Care Team (Late st Contact Info) Description 05/01/2025 8:30 AM EST Telemedicine [facility] Care [address] [place] [address] Adair Mejias DO [address], 2nd Floor [place] [address] [email or web address] 05/19/2025 4:00 PM EST Telemedicine [facility] Neurology Epilepsy Service [address] [place] [address] Nina Chacon MD 55 [facility] Department of [address] [place] [address] [email or web address] 06/22/2025 1:30 PM EST Telemedicine [facility]al [facility] 55 [facility], 8th Floor, [address] [place] [address] Christelle Phipps MD 55 [facility] [address] [place] [phone] [email or web address] 06/26/2025 1:30 PM EST Telemedicine 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 Detail: Posterior Dominant Rhythm: Frequency: Left 11 Hz Right 10 Hz Amplitude: Left 13 V Right 12 V Maximum Amplitude Region: Occipital Symmetry: Amplitude and Frequency Reactive to eye opening: Yes Sleep Pattern: Normal Hyperventilation: Not performed Photic Stimulation: Not performed Artifacts interfere with interpretation: No ECG: Normal Additional Info: EEG DESCRIPTION: Well organized and sustained background of 10-11 Hz during the recording. Attenuation is noted with eye opening. Wicket spikes on the right were seen. Several bursts of apparent wickets with some evolution of frwquency over 2-3 seconds may represent RMTD. us Blake Espinosa MD NEUROLOGY ORDERABL ES Final Result documented in this encounter Visit Diagnoses Diagnosis Other epilepsy, not intractable, without status epilepticus documented in this encounter Additional Health Concerns Infection Onset Date Last Indicated Resolved Time COVID-19 12/13/2022 12/13/2022 01/03/2023 1:22 AM EDT CoV-Risk Comment:Per note documentation 05/18/2023 05/19/2023 9:48 AM EST COVID-19 12/31/2023 12/31/2023 01/21/2024 1:22 AM EDT Assessment Noted Time PHQ-9 Depression Total Score: 14 022 2:50 PM EDT PHQ-2 Depression Total Score: 6 08/23/19 22 2:50 PM EDT documented as of this encounter Care Teams Packaging Inspector Relationship Specialty Start Date End Date Adair Mejias DO [address] [place] [address], 2nd [place] [address] [email or web address] PCP - General Internal Medicine 08/22/21 Willy Metcalf MD [address] [place] [phone] .[email or web address] Insurance Assigned Provider 07/31/20 07/29/22 Wanda Stern, RN [address] [place] [id number] [email or web address] PHCM Choir LeaderLead Relay Tester 08/23/21 04/20/24 documented as of this encounter Additional Source Comments The information contained in this document represents components of the legal health record. It is not the complete legal health record.[facility]
--- OUTSIDE RECORDS SUMMARY | 2021-10-20 11:46 | XMS_ITS | Encounter Summary ---
Author Organization [facility] Address [address] [place] [address] Phone Care Team Providers Care Manager Of Radiology Name Role Phone Willy Metcalf MD Unavailable [phone] Adair Mejias DO Primary Care Provider Wanda Stern RN Unavailable [phone] Encounter Details Date Type Department Care Team (Late st Contact Info) Description 10/20/2021 12:46 PM EDT Hospital Encounter [facility] Department of Neurology 55 [facility], [address] [place] [address], [address] [place] [address] Blake Espinosa MD [email or web address] Social History Tobacco Use Types Packs/Day Years [...] high school, GED, job training, learning the Canadian language, technical skills, or developing parenting skills)? [...] Info) Description 05/01/2025 8:30 AM EST Telemedicine [facility] Primary Care [address] [place] [address] Adair Mejias DO 170 [facility], 2nd Floor [place] [address] [email or web address] 05/19/2025 4:00 PM EST Telemedicine [facility] Neurology Epilepsy Service [address] [place] [address] Nina Chacon MD 55 [facility] Department of [address] [place] [address] [email or web address] 06/22/2025 1:30 PM EST Telemedicine [facility] Behavioral Neurology and [facility] 55 [facility], 8th Floor, [address] [place] [address] Christelle Phipps MD [address] [place] [address] [address] [place] [phone] 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 Some of these alerts appear to have clinical significance. PUSH BUTTON EVENTS: A button press or notation was made 01 time. Patient log was reviewed with the patient at [facility] with the intent to reconcile events. See [...] documented as of this encounter Care Teams Manager Of Radiology Relationship Specialty Start Date End Date Adair Mejias DO [address] [place] [address], 2nd [place] [address] [email or web address] PCP - General Internal Medicine 08/22/21 Willy Metcalf MD [address] [place] [address] [email or web address] Insurance Assigned Provider 07/31/20 07/29/22 Wanda Stern, RN [address] [place] [address] [email or web address] Usher 08/23/21 04/20/24 documented as of this encounter Additional Source Comments The information contained in this document represents components of the legal health record. It is not the complete legal health record.[facility]
--- OUTSIDE RECORDS SUMMARY | 2022-05-25 19:37 | XMS_ITS | Encounter Summary ---
Author Organization [facility] Address [address] [place] [address] Phone Care Team Providers Care Client Experience Administrator Name Role Phone Willy Metcalf MD Unavailable [phone] Adair Mejias DO Primary Care Provider Wanda Stern RN Unavailable [phone] Encounter Details Date Type Department Care Team (Late st Contact Info) Description 05/25/2022 7:37 PM EST Hospital Encounter [facility] Department of Neurology [address] [facility], [address] [place] [address], [address] [place] [address] Blake Espinosa MD [email or web address] Social History Tobacco Use Types Packs/Day Years [...] high school, GED, job training, learning the Mold[place] language, technical skills, or developing parenting skills)? [...] Info) Description 05/01/2025 8:[address] [facility] Primary Care [address] [place] [address] Adair Mejias DO [address], 2nd Floor [place] [address] [email or web address] 05/19/2025 4:00 PM EST Telemedicine [facility] Neurology Epilepsy Service [address] [place] [address] Nina Chacon MD 55 [facility] Department of [address] [place] [address] [email or web address] hima 06/22/2025 1:30 PM EST Telemedicine [facility] Behavioral [facility] 55 [facility], 8th Floor, [address] [place] [address] Christelle Phipps MD 55 [facility] [place] [address] [place] [phone] [email or web address] 06/26/2025 1:[address] 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 Data was recorded on a 24-channel [employer] EEG recording device with a sampling rate [...] seconds EKG: No dysrhythmia. Corrie Bains MD [facility] Epilepsy Service Narrative 05/28/2022 9:07 PM EST [...] documented as of this encounter Care Teams Client Experience Administrator Relationship Specialty Start Date End Date Adair Mejias DO [address] [place] [address], 2nd [place] [address] [email or web address] PCP - General Internal Medicine 08/22/21 Willy Metcalf MD [address] [place] [id number] [email or web address] Insurance Assigned Provider 07/31/20 07/29/22 Wanda Stern, RN [address] [place] [email or web address] PHCM Fire Prevention CaptainWater Pumper 08/23/21 04/20/24 documented as of this encounter Additional Source Comments The information contained in this document represents components of the legal health record. It is not the complete legal health record.[facility]
--- OUTSIDE RECORDS SUMMARY | 2022-05-25 19:37 | XMS_ITS | Encounter Summary ---
Author Organization [facility] Address [address] [place] [address] Phone Care Team Providers Care Customer Service Specialist Name Role Phone Willy Metcalf MD Unavailable [phone] Adair Mejias DO Primary Care Provider Wanda Stern RN Unavailable [phone] Encounter Details Date Type Department Care Team (Late st Contact Info) Description 05/25/2022 7:37 PM EST Hospital Encounter [facility] Department of Neurology 55 [facility], [address] [place] [address], [address] [place] [address] Blake Espinosa MD [email or web address] Social History Tobacco Use Types [...] high school, GED, job training, learning the Italian language, technical skills, or developing parenting skills)? [...] Info) Description 05/01/2025 8:30 AM EST Telemedicine [facility] Primary Care [address] [place] [address] Adair Mejias DO [address], 2nd [place] [address] [email or web address] 05/19/2025 4:00 PM EST Telemedicine [facility] Neurology Epilepsy Service [address] [place] [address] Nina Chacon MD 55 [facility] Department of [address] [place] [address] [email or web address] 06/22/2025 1:30 PM EST Telemedicine [facility] Neurology and [facility] 55 [facility] Building, 8th Floor, [address] [place] [address] Christelle Phipps MD 55 [facility] [place] [address] [place] [phone] [email or web address] 06/26/2025 1:30 PM EST Telemedicine [facility] Primary Care [facility] [address] [place] [address] Adair Mejias DO 170 [facility], 2nd [place] [address] [email or web address] documented as of this encounter Procedures Procedure Name Priority Date/Time Associated Diagnosis Comments OUTSIDE EEG (WITH INTERPRETATION) Routine 05/13/2022 4:08 PM EST Other epilepsy, not intractable, without status epilepticus documented in this encounter Results * planning consultant Use Only-Outside EEG (with Interpretation) (05/13/2022 4:08 [...] and placement protocol in person by an adjunct political science instructor for the purposes of recording routine EEG: (19) cephalic, (2) T1/T2 sub-temporal, (1) ground, (1) system reference, and (2) ECG. Data was recorded on a 24-channel [employer] EEG recording device with a sampling rate [...] with no evolution. EKG: No dysrhythmia. Corrie Bains MD [facility] Epilepsy Service us Blake Espinosa MD NEUROLOGY [...] documented as of this encounter Care Teams Customer Service Specialist Relationship Specialty Start Date End Date Adair MejiaswDO [address] [place] [address], 2nd [place] [address] PCP - General Internal Medicine 08/22/21 Willy Metcalf MD [address] [address] [email or web address] Insurance Assigned Provider 07/31/20 07/29/22 Wanda Stern, RN [address] [place] [id number] PHCM Warehouse Pricing And Inventory ClerkEducation Professional 08/23/21 04/20/24 documented as of this encounter Additional Source Comments The information contained in this document represents components of the legal health record. It is not the complete legal health record.[facility]
--- NOTE | ~2025-04-13 | FL_ITS ---
EXAMINATION: MODIFIED BARIUM SWALLOW CLINICAL INFORMATION: Difficulty swallowing medication COMPARISON: None available. TECHNIQUE: Modified barium swallow was performed in upright view with various consistencies of barium coated food in presence of speech therapist. FINDINGS: On oral administration of thin, thick barium, nectar, puree and solid food coated with barium there is normal propagation of bolus from the oral cavity through the pharynx and esophagus without laryngeal penetration and aspiration. There is normal oral mastication and propagation of solid food. On oral administration of barium tablet there is transient holdup in the pharynx but cleared with subsequent oral administration of fluids. FLUOROSCOPY TIME: 2 minutes 23 seconds DOSE AREA PRODUCT: 1149 uGy-m2 (microgray-meter squared) FL/FL Modified Barium Swallow IMPRESSION: Grossly unremarkable modified barium swallow exam. Correlate with with speech therapy report Electronically signed by: Antelmo Richards MD 04/13/2025 03:45 PM [facility]
--- OUTSIDE RECORDS SUMMARY | 2025-04-13 10:30 | XMS_ITS | Encounter Summary ---
Author Organization [facility] Address [address] [place] [address] Phone Care Team Providers Care Buttermaker Continuous Churn Name Role Phone RandellKellibenita Silvaw Primary Care Provider Encounter Details Date Type Department Care Team (Late st Contact Info) Description 04/13/2025 10:30 AM EST Telemedicine [facility] [address] [place] [address], 8th Floor, [address] [place] [address] Christelle Phipps MD [address] [place] [phone] [email or web address] Depression, unspecified depression type (Primary Dx); EVE (generalized anxiety disorder); Panic disorder Social History Tobacco Use Types Packs/Day Years [...] high school, GED, job training, learning the [place] language, technical skills, or developing parenting skills)? [...] as of this encounter Progress Notes * Christelle Phipps MD - 04/13/2025 10:30 AM EST Images from the original note were not included. [facility] Division of Behavioral Neurology & Integrated Brain Medicine [facility], Neurology [address] [place] [address] Date: 04/13/2025 ?Referring Physician: Nina Chacon MD [facility] [place]rology [address] [place] [id number] PCP: Adair Mejias DO [address], 2nd Floor [facility] [address] Dear Prema Chacon MD and Adair Mejias, I had the pleasure of seeing Manny Kearns ([id number]) in clinic today for consultation regardingmood symptoms. While you are well familiar with this patient's medical history, please allow me to review it for our records. Mr Manny Kearns is a 60 y.o. right handed male with history of metastatic melanoma, chronic back pain (on SSDI), seizures (right temporal), onset in 2021, chronic anxiety, no suicide attempts or inpatient admissions, who was referred to [facility] psychiatry for furtherevaluation and management of mood symptoms. Status post temporal lobe surgery 08/2024. Interval History: Met with patient virtually. On time, unaccompanied for the visit. Chart reviewed prior to interview. Since last visit, he reports that he is doing okay. He notes that he is okay, that he has been better, but overall he is okay. Reviewed interval history - he notes that surgery as far as he knows went well based on healing, as he states he healed well, completed PT. He notes that PT was unusual, he had to ask them to stop some activities as it was causing him issues with head pain. He notes thathe can read better than he was able to before - he notes that he does not have to re-read paragraphs. Mood hernandez, he reports that he has been tremendously sad, and feels that is the correct word to use. He notes that he is not feeling optimistic about the surgery. He notes that he does not feel likethe old Manny - notes that he mentioned to PCP who encouraged him to speak to this team about that feeling. In terms of seizures - he is not sure, he notes that he lives alone. He suspects 1-2 seizures. He notes that he was recently speaking to a neighbor, who mentioned that he noticed something, that the neighbor asked him what's going on / where are you - and patient wondered if something was happening. He continues to have significant anxiety around having another seizure. He has been having swallowing issues since surgery, not able to swallow solid food since 02/2025 - living on ensure and ice cream. He notes that pills have been getting stuck in his throat - now on liquid ASMs. Crushing tylenol into tea / chicken broth. He will have swallowing eval later today. Sleep: no issues falling or staying asleep, feels medications knock him out. Often wakes to urinate, but falls back to sleep Cognitive: about the same; 12/2024 - notes some word finding difficulty, he worries that those around him think he is having a seizure. 03/2025 - notes that he can fluidly go through a book Pain: with back issue, 7.5. Headaches have returned on the right side. Recently had eye exam was intact Fatigue: 4, often wants to lay in bed, tries to force himself not to do that History of Present Illness: Met with patient virtually. He was on time, unaccompanied for the visit. Chart reviewed prior to interview. Onset of seizures in 2021. Diagnosed right temporal epilepsy. Scheduled to have R REGGIE in 05/2024, was supposed to have REGGIE in 01/2024, but had COVID, followed by bronchitis, he has had pneumonia a few times, so was on antibiotics for some time, so surgery was rescheduled. He is on a cancellation list, was moved to March 2024 and he wonders if he can return to May date. In terms of seizure alina - he was recently in [place] for a celebration of life ceremony, he states that no one noticed any while he was there for a week long trip. He lives alone, so is not aware of when he has seizures. Has been told if he has one he will stare off / repeat words such as yup / uh huh. Denies issues with tongue biting or incontinence. He carries diagnosis of metastatic melanoma, he notes it has moved to right and center of back. Describes mood recently as tired. He has no interest in anything. Wants to sleep all the time. Energy level is low. Feeling discouraged, states seizures came out of nowhere. He states that his therapist (whom he sees every other week) is his main source of support. Spends the day reading books. Sleep is disrupted, struggles to fall and stay asleep. Every once in awhile will take a nap during the day. Appetite is intact, no recent weight gain or loss that was intentional. He feels there may havebeen some weight gain in 2021 when admitted to [facility]. Cognitively has been fine. Denies suicidalthoughts, no homicidal thoughts. Denies hallucinations, he notes the only time this every happened was when seizures started. He notes that his mother in 04/2021, that he then started to experience hallucinations, was diagnosed with status epilepticus. Head Trauma: denies Seizures: first seizure 2021 Sleep: takes melatonin, wakes frequently at night. Struggles to fall back to sleep. Pain: LBP - from prior injury, three failed surgeries. Cognitive Trouble: denies Mood: slightly depressed REVIEW OF SYSTEMS: Neurologic: Changes in vision or hearing: none Headaches: none Neck pain: yes Tinnitus: none Vertigo: yes, at times orthostasis Weakness: in knees Numbness: none Difficulty with comprehension: none Difficulty speaking: occasionally feels brain is working faster than mouth Difficulty with language: none Difficulty with swallowing, eating: none Difficulty with gait/balance: balance at times. Tremors: yes, both hands Psychiatric: Depression: denies Mellissa: denies Anxiety, including panic: reports he has been anxious since childhood. Yes - panic attacks. First was in the . Panic attacks occur every once and awhile, but not as frequent Psychosis/hallucinations: denies Obsessions/compulsions: denies. Describes pattern of perfectionistic - he notes that he would do this to himself. Dissociative symptoms: denies Trauma/nightmares/flashbacks: yes - when asked about FB / NM _ yes Review of Systems Denies ? ??[X] ALL SYSTEMS HAVE BEEN REVIEWED AND ARE NEGATIVE, EXCEPT NOTED ABOVE? PAST MEDICAL HISTORY Past Medical History: Diagnosis Date Anxiety Followed by [facility] in [place], he has seen Dr. Angelina Landaverde for Psychotherapy Cancer melanoma COPD with emphysema Pulmonary funcion tests 07/08/13 revealed moderdate to severe obstructive physiology with an excellent bronchodilator response; no restriction or air trapping seen; minimal reduction in diffusing capacity; consistent with moderate to severe COPD- A or emphysema with an element of asthma. Formerly followed by Dr. Kerr Depression Followed by [facility] Sears in [place]. He had seen Dr. Amanda Landaverde for Psychotherapy Failed back syndrome Status post laminectomy x2-1992 and 1993. History of spinal cord stimulator implant 1998, removed 6m after. Followed by [facility] for episodic cortisone shots Gastroesophageal reflux disease History of duodenal ulcer diagnosed by endoscopy around 1984 History of malignant melanoma Status post sentinel node removal right axilla and right groin which were negative 07/02. Followed by Dr. Brown [facility] Panic attacks Perirectal abscess 07/08/2013 seen at [facility] Emergency Room 07/08/13 CT abdomen and pelvis, thick walled left posterior erirectal abscess. Treated by Dr. Tony Mclaughlin Psoriasis Pulmonary nodules stable Right knee meniscal tear 05/2009 Seizure per pt on 08/26/23: last sz on 08/17/24, focal onset Tobacco dependence syndrome 09/24/2017 Past Neurological History: Neuroimmunological: no Head trauma: no. LOC? no Seizures: yes Endocrinopathy: no Stroke: no Dementia: no Movement disorder: no Headaches or migraines: no [X] No history of fibromyalgia, chronic pain disorder, irritable bowel syndrome or chronic fatigue disorder Past Psychiatric History: Diagnoses - EVE, panic disorder Hospitalizations - Inpatient: denies Partial: denies Medication trials - SSRI / SNRI: prozac 40 mg (has not tolerated higher dose in the past). He felt it was helpful when he first started this. Per med fills - took venlafaxine in 2020 for several months, he notes there was something about it that did not agree with him. He has been on same dose of prozac since 1997. Hedid not like how he felt at 60 / 80 mg. Paxil made him feel jittery. 03/2025 - unable to swallow prozac capsules, will swap to zoloft liquid; 100 mg Wellbutrin/remeron: denies Benzodiazepines: alprazolam, clonazepam. Started in his 20's for panic attacks Propranolol, clonidine, prazosin: denies Augmentation: denies Stimulants: denies Suicide/self injury - denies Providers - Psychiatrist: AALIYAH Zarate retiring soon, needs longitudinal prescriber Therapist: Mirtha Mann - therapist, sees every two weeks Medications: Outpatient Medications as of 04/13/2025 Medication acetaminophen (TYLENOL) 325 mg tablet ALPRAZolam (XANAX) 0.5 MG tablet clonazePAM (KLONOPIN) 2 MG tablet lacosamide (VIMPAT) 10 mg/mL Soln lacosamide (VIMPAT) 150 mg Tab levETIRAcetam (KEPPRA) 500 MG tablet levETIRAcetam (KEPPRA) 500 mg/5 mL (5 mL) Soln melatonin 3 mg Tab pantoprazole (PROTONIX) 40 MG tablet zonisamide (ZONEGRAN) 100 MG capsule zonisamide (ZONEGRAN) 100 mg/5 mL oral suspension No current facility-administered medications on file as of 04/13/2025. PDMP: Reviewed on 04/13/2025 Allergies: Allergies Allergen Reactions Naproxen GI Upset Oxcarbazepine Rash Family history: Diagnoses - mother. No one in the family with neuro diagnosis. Substance - father (but did not share relationship) Suicide - denies. Mom attempted (cut wrists) - he found her and Early Developmental History: Complications of , labor and delivery, trauma, illness, health and development during childhood, learning ability, school performance. Perfectionistic as a child No complications with He did well in school Social History: Childhood/development - born in [facility]. No relationship with father. No siblings. He grew up with mom (who was very young - almost 17 when he was born). He and mom stayed with grandparents. He has an aunt 6 months younger than he is. He states that growing up in the house was perfect, and good. 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 No children. Legal history - denies history - denies Hobbies - building model cars, enjoys s cars, airplanes, enjoys reading Spirituality/jain - yes when growing up - [employer], and yes to some extent now. Substance History: Tobacco - in the past, he assumed he had a stroke when symptoms started ETOH - on occasion, no history of blackouts, withdrawal seizures, DTs. THC - denies Opiates/heroin - denies Stimulants - denies Other - denies Physical Exam: Vitals: There were no vitals filed for this visit. Wt Readings from Last 3 Encounters: 03/26/25 68.5 kg (151 lb) 09/18/24 78 kg (172 lb) 09/10/24 78.1 kg (172 lb 2.9 oz) Physical Exam: Const: NAD, AAOx3. Seated upright thoughout exam. No increased WOB. Neuro: Face symmetric. EOMI and PERRL. Follows commands. Fluent speech appropriate to conversation.Spontaneous, meaningful movement of all four extremities. Neuropsychiatric Aspects: Appearance: Well groomed, well nourished. Appears to be stated age. Behavior: Calm, cooperative. Good eye contact. Psychomotor: No psychomotor agitation or retardation. Speech: Fluent, normal rate, prosody, amount, and volume. Mood: Depressed Affect: Euthymic, normal range. Congruent to mood. Thought Process: Linear, logical, and goal-oriented. Thought Content: Denies suicidal/homicidal ideation Perceptions: Denies auditory and visual hallucinations. Denies paranoid ideation. No evidence of responding to internal stimuli. Associations: No loosening of associations. Insight: Fair Judgment: Intact Cognitive Behavioral Aspects (06/2024): Orientation: Alert and oriented times three Attention: Intact, able to spell WORLD backwards Memory: Able to recall 3/3 words at 5 minutes. Recent memory - intact to current world events. Mcc memory - intact to childhood memories Labs/Imaging: Lab Results Component Value Date/Time HGB 13.1 (L) 05/12/2023 03:30 AM HCT 41.8 05/12/2023 03:30 AM WBC 6.10 05/12/2023 03:30 AM PLT 235 05/12/2023 03:30 AM SODIUM 142 05/12/2023 03:30 AM POTASSIUM 4.1 05/12/2023 03:30 AM CO2 22 (L) 05/12/2023 03:30 AM CHLORIDE 110 (H) 05/12/2023 03:30 AM CALCIUM 9.0 05/12/2023 03:30 AM MAGNESIUM 2.0 05/10/2023 04:25 PM BUN 22 05/12/2023 03:30 AM EGFR 87 05/12/2023 03:30 AM CHOLESTEROL 115 02/04/2019 11:32 AM LDL 67 02/04/2019 11:32 AM HDL 38 02/04/2019 11:32 AM PT 13.3 06/28/2022 11:33 AM APTT 29.2 06/28/2022 11:33 AM Radiology: Brain MRI 08/2023: MRI BRAIN FUNCTIONAL (WITHOUT MD), MRI BRAIN WITH AND WITHOUT CONTRAST Referring clinician's provided indication for this examination in [facility]: * Seizure, refractory; NEEDS FGATIR [id number], POST CON T1, FMRI for langauge lateralization. TECHNIQUE: Structural MRI: Multi-sequence, multi-planar MRI of the brain was performed without and with contrast. BOLD fMRI: Acquired before contrast at 3 mm isotropic voxel size. Each run employed a block design paradigm consisting of 4.5 rest-activation cycles with a total duration of 4.5 minutes. Language paradigms: Verb generation (2 runs), sentence completion (2 runs), and word generation (1 run), all at 3 mm isotropic voxel size. DTI: Acquired before contrast at 2 mm isotropic voxel size using 60 diffusion- encoding gradient directions, b = 700 s/mm^2. Post-processing: Statistical maps of task activation were generated for each individual run using ageneral linear model. Models of the corticospinal tracts were generated from the DTI data using a deterministic streamlined tractography algorithm. fMRI activations, tract models, and structural MRI images were coregistered, fused, and visualized using tri-planar reconstructions and 3D volume rendering. Statistical maps were evaluated at variable thresholds. COMPARISON: Brain MRI August 02, 2023. Brain PET scan May 11, 2023. Brain MRI September 16, 2021. FINDINGS: Structural MRI findings: Brain Parenchyma: There are minimal scattered T2/FLAIR hyperintense foci in the bilateral supratentorial white matter, slightly more prominent in the frontal lobes, nonspecific in nature. No infarct,intraparenchymal hemorrhage, or mass. No abnormal restricted diffusion or abnormal susceptibility signal. Ventricular System and Extra-Axial Spaces: The cortical sulci and ventricular system are normal in size and configuration. There is no hydrocephalus, midline shift, or brain herniation. Skull and extracranial Structures: Major arterial flow voids at the skull base are patent. There ismild scattered mucosal thickening in the ethmoid air cells. A small retention cyst is present within the left maxillary sinus. A small amount of fluid is present within the right mastoid air cells. Orbits, skull, and pericranial soft tissues appear normal. fMRI findings: Language: All runs demonstrated minimal head motion and robust language activation. The patient wasengaged with the task paradigms and performed them effectively. The verb generation and sentence completion tasks elicited generally concordant patterns of activation. Strongly left-lateralized activations were elicited within the following characteristic regions: 1) putative expressive language area region and its environs, including a) pars opercularis and pars triangularis of the inferior frontal gyrus (classical expressive area), b) surrounding regions ofprefrontal and premotor cortex along i) pars orbitalis of the inferior frontal gyrus, ii) patterson of the inferior frontal sulcus, iii) patterson of the inferior precentral sulcus, and iv) anterior insula; 2) putative receptive language region, including a) the patterson of the posterior aspect of the superior temporal sulcus and b) the supramarginal gyrus; 3) putative visual word form area along the patterson of the lateral occipitotemporal sulcus. Bilateral activations were elicited in the putative pre-supplementary motor area within the medial aspects of the superior frontal gyri. Strong activation was also elicited bilaterally in the primary and association visual cortex due to the visual presentationof the task paradigms. The laterality index is approximately 0.73. DTI tractography findings: Corticospinal tract: The reconstructed corticospinal fibers show a normal trajectory. Neuropsychological Testing: Completed Candy Tuttle, PhD: Clinical Impressions and Recommendations: In brief review, formal test results reflect: Intact broadly average verbal and nonverbal intelligence Mild executive dysfunction and reduced fine motor dexterity bilaterally Intact language, including semantic fluency and naming Intact auditory working memory, but relative weaknesses in visuospatial working memory Intact verbal memory, but weaknesses in spatial (visual) learning and memory Moderate anxiety and mild depressive symptomatology Taken together and with results of an fMRI for language that confirmed strong left hemispheric dominance, this neuropsychological profile reflects dysfunction in right frontotemporal and mesial temporal networks with intact left frontotemporal and mesial temporal networks. These findings are concordant with EEG studies that implicate right temporal onsets with cognitive issues that are impacting the right hemisphere somewhat more broadly. In terms of surgical consideration, if Mr. Kearns were considered a candidate for a right temporal lobectomy to treat his epilepsy, this would likely be well tolerated from a cognitive perspective since there is existing dysfunction in this localizationat baseline and since most individuals tolerate this well, especially if there is intact functioning of the contralateral network to support memory which is the case for him. Mr. Kearns's baseline anxiety and sleep issues may be factors that contributes to some degree ofreduced cognitive efficiency at times in addition to seizures and potential side effects of multiple psychoactive medications including ASM and benzodiazepines. These issues are not expected to resolve immediately with epilepsy surgery and will continue to require time (i.e. for ASMs) and ongoing treatment (i.e. for anxiety and antianxiety treatment) to manage even if in the best case scenario that epilepsy surgery were to prove curative. Expectations for epilepsy surgery in terms of seizure control and these other facets that also impact his functioning should be carefully discussed with to optimize his outcome. He should continue to see his therapist and is encouraged in themeantime to continue to aim for structure in his days and, if possible, to build in more physical activity and a mindfulness practice to help optimize his emotional resilience, overall health, and potential for healthy sleep. If Mr. Kearns is interested in learning more about living with epilepsy and connecting with others with the diagnosis I would be happy to refer him to a group program being run by my colleague, Dr. Maryam Bryan at [facility], although he would require a reliable internet connection for this in order to participate. ASSESSMENT: Mr Kearns is a 60 y.o. right handed male with history of metastatic melanoma, onset of seizures 2021 (R temporal epilepsy), no suicide attempts or inpatient psych admissions, who was referred to [facility] for further evaluation and management of psychiatric symptoms. He notes chronic anxiety - including panic, and tendency to aim for perfectionism. He has limited support currently, and notes added stressors of lack of autonomy, loss of independence (inability to drive for example) as added stressors. He notes he has been on prozac since 1997, is open to trying something new and wonders if it has lost efficacy. He had brief trials of paxil and venlafaxine, neither were helpful. Has not tried other SSRI's. Open to sertraline - which can be flexed to high doses to target anxiety. Discussed risks, benefits, alternatives to this medication. Discussed that he could discuss with current psych PA or we are able to prescribe it, he noted he would like to start cross taper immediately. Also discussed that buttermaker continuous churn benzos are not ideal - that once his baseline anxiety can be driven down with new SSRI, can consider a very slow taper of these - discussed he should not stop these cold turkey. He notes that he has been having some dysfunction / SE from AEDs thus far, will see if this improves post pending REGGIE / if he is able to wean off some AEDs. From safety standpoint, he is strongly and spontaneously future oriented. Denies past attempts. He is felt to be at low imminent risk of harm to self or others based on interview today - he is health seeking, motivated to improve symptoms. 06/2024: Tried to cross taper from prozac to zoloft, he reports he did not feel great, those around him called him grouchy. He resumed prozac, and states he would prefer to continue with this medication. It is possible that he felt some worsening of mood while waiting for zoloft dose to move to efficacious timeline. He voiced desire to stay on the prozac. He remains strongly and spontaneously future oriented during the visit. He is presently on prozac 40 mg, he notes that when this was increasedfurther to 60 mg, he did not feel good. Discussed recommendation for him to continue prozac at 40 mg, that some of his residual symptoms may be residual anxiety that needs to be treated with higher dose of SSRI. Discussed that we could consider remeron, he voiced desire to wait until after surgery to make further adjustment to medications. 12/2024: Having more depression, that he states predates surgery in 08/2024. He has some anxiety in terms of recent MRI - he notes that he read there was abnormalities in the imaging. He stopped prozacinadvertently since surgery, has resumed at 20 mg dose, and is open to increase 40 mg to target mood symptoms. Message sent to Dr Chacon re: MRI results, as he is having anxiety after reading results on his own. Strongly future oriented, will see him back in March. 03/2025: He has been having issues with swallowing - awaiting swallow study. He notes that pills were getting stuck in his throat. Has been opening prozac capsules, an putting into tea. Discussed plan to move to liquid SSRI, will try celexa (did not tolerate paxil or zoloft or venlafaxine in the past), at 20 mg to start. He will reach out with any issues / side effects. Strongly and spontaneouslyfuture oriented. Other thoughts: Alternative SSRI Remeron Buspar if anxiety remains high and he cannot tolerate high dose SSRI Sertraline / zoloft - 06/2024 - he tried to cross taper, felt more grouchy. See above for further discussion around this DIAGNOSES: Generalized anxiety disorder Panic disorder Rule out OCPD Since we have been working together, how would you rate your overall general health: Much Worse, Worse, the Same, Improved, Much Improved. CGI (patient rated): the same CGI (clinician rated): the same RECOMMENDATIONS: Medications Prozac 40 mg PO daily Did not tolerate higher dose of prozac or zoloft. Takes klonopin 2 mg PO QHS, xanax 0.5 mg PO up to TID. 12/2024 - will increase prozac back to 40 mg. May need higher dose / augmentation at upcoming visit 03/2025 - will move to liquid celexa 20 mg given inability to swallow. Did not tolerate paxil, zoloft or effexor in the past. Therapy Consider www.psychologytoday.com; www.therapyTorrential.com if needed in the future Continue with current therapist Disposition Return to clinic in 3 months; 06/22/2025 at 1:30 PM, virtually Initial intake [virtual]: 03/03/2024 Patient is aware they can reach out via gateway with questions or concerns in the meantime Thank you for allowing me to participate in the care of your patient. Sincerely, Christelle Phipps MD [facility] Attending in Psychiatry Cognitive Behavioral Neurology [facility] 8th Floor [address] [place] [address] Virtual Visit Attestation Modality: video Provider Location, state disclosed to patient: home / other Patient Location: home Patient State or Country: [place] [address] Complexity: Consideration of multiple treatment options with potential risks and benefits due to patient history and current symptoms Significant concerns regarding potential medication interactions or side effects requiring careful monitoring Patient with complex set of symptoms - including anxiety from / as a result of living with seizures. Experienced medication side effects, psychopharm education provided today Total time spent in psychotherapy: 16 min Type of therapeutic approach: supportive, insight oriented Focus: establishing therapeutic rapport; empathic listening; validation; psychoeducation; coping with stressors; lifestyle modification; depressive/anxious thoughts Response: fair I have maintained a long-term, longitudinal relationship with this patient, overseeing care of chronic conditions, including MDD, EVE. This care relationship has significantly influenced my decision-making and treatment plans during today's encounter. documented in this encounter Plan of Treatment Upcoming Encounters Date Type Department Care Team (Late st Contact Info) Description 05/01/2025 8:30 AM EST Telemedicine [facility] Primary Care [address] [place] [address] Adair Mejias DO [address] [place] [address], 2nd [place] [address] [email or web address] 05/19/2025 4:00 PM EST Telemedicine [facility] Neurology Epilepsy Service [address] [place] [address] Nina Chacon MD [address] [place] [address] Department of TvecoeigoUVCJ328 [place] [address] [email or web address] 06/22/2025 1:30 PM EST Telemedicine [facility] Behavioral [facility]rology [facility] [address] [facility], 8th Floor, [address] [place] [address] Christelle Phipps MD [address] [place] [address] [address] [place] [phone] [email or web address] 06/26/2025 1:30 PM EST Telemedicine [address] [place] [address] Adair Mejias DO [address] [place] [address], 2nd [place] [address] [email or web address] documented as of this encounter Visit Diagnoses Diagnosis Depression, unspecified depression type- Primary EVE (generalized anxiety disorder) Generalized anxiety disorder Panic disorder Panic disorder without agoraphobia documented in this encounter Additional Health Concerns Assessment Noted Time PHQ-9 Depression Total Score: 5 03/26/20 25 9:51 AM EST PHQ-2 Depression Total Score: 3 03/26/20 25 9:51 AM EST documented as of this encounter Care Teams Buttermaker Continuous Churn Relationship Specialty Start Date End Date Adair Mejias DO [address] [place] [address], 2nd [place] [address] [email or web address] PCP - General Internal Medicine 08/22/21 documented as of this encounter Additional Source Comments The information contained in this document represents components of the legal health record. It is not the complete legal health record.[facility]
--- OUTSIDE RECORDS SUMMARY | 2025-04-13 17:38 | XMS_ITS | Encounter Summary ---
Author Organization [facility] Address [address] [facility] [address] [place] [address] Phone Care Team Providers Care Sleeping Room Cleaner Name Role Phone Adair Mejias DO Primary Care Provider Wanda Stern RN Unavailable [phone] Reason for Visit * Reason Onset Date Comments Medication Question 01/03/2024 Shortness of Breath 01/03/2024 Red call COVID-19 Inquiry 01/03/2024 Encounter Details Date Type Department Care Team (Late st Contact Info) Description 01/03/2024 Nurse Triage [facility] Primary Care Clinic [address] [place] [address] Adair Mejias DO [address], 2nd [place] [address] [email or web address] Medication Question; Shortness of Breath (Red call [...] of this encounter Progress Notes * Fatuma Vallejo RN - 01/07/2024 12:45 PM EDT Started [...] Protocols used: Coronavirus (COVID-19) Persisting Symptoms Follow-up [id number] Nurse Triage Encounter Note Reason for Triage [...] follow advice Coronavirus (COVID-19) Persisting Symptoms Follow-up [id number] Fatuma Vallejo RN Sun 12:58 PM Disposition and First Aid GO TO OFFICE NOW: * You need to be examined. Come into the office right now. * IF NO AVAILABLE APPOINTMENTS: You need to be seen in an Urgent Care Center. Go to the one at [facility].Leave now. A nearby Urgent Care Center is [...] dosage. Please contact and advise. Central Support Baggage Porter Head (Please do not reply to this user; [...] he did something incorrectly.Please advise. Central Support Baggage Porter Head (Please do not reply to this user; this inbox is not monitored.) Thank you. documented in this encounter Plan of Treatment Upcoming Encounters Date Type Department Care Team (Late st Contact Info) Description 05/01/2025 8:30 AM EST Telemedicine [facility] Primary Care Clinic [address] [place] [address] [place] [address] Adair Mejias DO 170 [facility], 2nd [place] [address] 05/19/2025 4:00 PM EST Telemedicine [facility] Neurology Epilepsy Service [address] [place] [address] Nina Chacon MD [address] [place] [address] Department of DmyzaoygnGVEB009 [place] [address] [email or web address] 06/22/2025 1:30 PM EST Telemedicine [facility] Behavioral Neurology and [facility] Clinic [address] [facility], 8th Floor, [address] [place] [address] Christelle Phipps MD 55 [facility] 110 [place] [phone] [email or web address] 06/26/2025 1:30 PM EST Telemedicine [facility] Primary Care Clinic [address] [place] [address] [place] [address] Adair Mejias DO [address] [place] [address], 2nd [place] [address] documented as of this encounter Visit Diagnoses Not on filedocumented in this encounter Additional Health Concerns Infection Onset Date Last Indicated Resolved Time COVID-19 12/31/2023 12/31/2023 01/21/2024 1:22 AM EDT Assessment Noted Time PHQ-9 Depression Total Score: 4 10/04/19 3:43 PM EDT PHQ-2 Depression Total Score: 2 10/04/19 3:43 PM EDT documented as of this encounter Care Teams Sleeping Room Cleaner Relationship Specialty Start Date End Date Adair Mejias DO [address] [place] [address], 2nd [place] [address] PCP - General Internal Medicine 08/22/21 Wanda Stern, RN [address] [place] [address] PHCM Registered Phlebotomist Part TimeOral Surgery Assistant 08/23/21 04/20/24 documented as of this encounter Additional Source Comments The information contained in this document represents components of the legal health record. It is not the complete legal health record.[facility]
--- OUTSIDE RECORDS SUMMARY | 2025-04-13 17:38 | XMS_ITS | Encounter Summary ---
Author Organization [facility] Address [address] [facility] [address] [place] [address] Phone Care Team Providers Care Tree Trimmer Helper Name Role Phone Adair Mejias DO Primary Care Provider Wanda Stern RN Unavailable [phone] Encounter Details Date Type Department Care Team (Late st Contact Info) Description 07/19/2023 Procedure Pass [facility] MRI, Maldonado 2 [address] [facility], 2nd [place] [address] Social History Tobacco Use Types Packs/Day Years [...] Info) Description 05/01/2025 8:30 AM EST Telemedicine [address] [place] [address] Adair Mejias DO [address] [place] [address], 2nd [place] [address] 05/19/2025 4:00 PM EST Telemedicine [facility] Neurology Epilepsy Service [address] [place] [address] Nina Chacon MD 55 [facility] Department of [id number] [place] [address] [email or web address] hima 06/22/2025 1:30 PM EST Telemedicine [facility] [address] [facility], 8th Floor, [address] [place] [address] Christelle Phipps MD [address] [place] [address] [address] [place] [phone] [email or web address] hima 06/26/2025 1:30 PM EST Telemedicine [address] [place] [address] Adair Mejias DO [address] [place] [address], [address] [place] [address] [email or web address] documented as of this encounter Visit Diagnoses Not on filedocumented in this encounter Additional Health Concerns Infection Onset Date Last Indicated Resolved Time COVID-19 12/31/2023 12/31/2023 01/21/2024 1:22 AM EDT Assessment Noted Time PHQ-9 Depression Total Score: 4 07/19/19 11:29 AM EDT PHQ-2 Depression Total Score: 2 07/19/19 11:29 AM EDT documented as of this encounter Care Teams Tree Trimmer Helper Relationship Specialty Start Date End Date Adair Mejias DO [address] [place] [address], 2nd [place] [address] [email or web address] PCP - General Internal Medicine 08/22/21 Wanda Stern, RN [address] [place] [address] [email or web address] PHCM Aircraft TechnicianVat Operator 08/23/21 04/20/24 documented as of this encounter Additional Source Comments The information contained in this document represents components of the legal health record. It is not the complete legal health record.[facility]
--- OUTSIDE RECORDS SUMMARY | 2025-04-13 17:38 | XMS_ITS | Encounter Summary ---
Author Organization [facility] Address [address] [place] [address] Phone Care Team Providers Care Meal Miller Name Role Phone Adair Mejias DO Primary Care Provider Encounter Details Date Type Department Care Team (Late st Contact Info) Description 03/20/2025 Orders Only [facility] Primary Care Clinic [address] [place] [address] Provider, MD [place] [address] [phone] Social History Tobacco Use Types Packs/Day Years [...] high school, GED, job training, learning the Croatian language, technical skills, or developing parenting skills)? [...] Description 05/01/2025 8:30 AM EST Telemedicine [facility] Primary Care Clinic [address] [place] [address] [place] [address] Adair Mejias DO [address] [facility], 2nd [place] [address] 05/19/2025 4:00 PM EST Telemedicine [facility] Neurology Epilepsy Service [address] [place] [address] Nina Chacon MD [address] [facility] Department of DeecrnmlxGBMN974 [place] [address] [email or web address] [email or web address] 06/22/2025 1:30 PM EST Telemedicine [facility] Neurology and Integrated Brain Medicine Clinic 55 [facility], 8th Floor, [address] [place] [address] Christelle Phipps MD [address] [facility] [place] [address] [place] [phone] [email or web address] 06/26/2025 1:30 PM EST Telemedicine [facility] [address] [place] [address] Adair Mejias DO 170 [facility], [address] [place] [address] [email or web address] documented as of this encounter Procedures Procedure [...] documented as of this encounter Care Teams Meal Miller Relationship Specialty Start Date End Date Adair Mejias DO [address] [place] [address], 2nd [facility] [place] [address] [email or web address] PCP - General Internal Medicine 08/22/21 documented as of this encounter Additional Source Comments The information contained in this document represents components of the legal health record. It is not the complete legal health record.[facility]
--- OUTSIDE RECORDS SUMMARY | 2025-04-13 17:38 | XMS_ITS | Encounter Summary ---
Author Organization [facility] Address [address] [place] [address] Phone Care Team Providers Care Laborer Prestressed Concrete Name Role Phone Mejias, Adairbenita Silvaw Primary Care Provider Encounter Details Date Type Department Care Team (Late st Contact Info) Description 09/22/2024 Procedure Pass [facility] - MRI [address] [facility], 6th [place] [address] Social History Tobacco Use Types Packs/Day Years [...] high school, GED, job training, learning the Burkinan language, technical skills, or developing parenting skills)? [...] Info) Description 05/01/2025 8:30 AM EST Telemedicine [facility] Primary Care [address] [place] [address] Adair Mejias DO 170 [facility], 2nd [place] [address] 05/19/2025 4:00 PM EST Telemedicine [facility] Neurology Epilepsy Service [address] [place] [address] Nina Chacon MD 55 [facility] Department of GffuzgsxoLNKS933 [place] [address] [email or web address] 06/22/2025 1:30 PM EST Telemedicine [facility] Neurology and Integrated Brain Medicine Clinic 55 [facility], 8th Floor, [address] [place] [address] Christelle Phipps MD 55 [facility] [place] [place] [phone] [email or web address] 06/26/2025 1:30 PM EST Telemedicine [facility] Primary Care Clinic [address] [place] [address] [place] [address] Adair Mejias DO [address] [place] [address] [email or web address] documented as of this encounter Visit Diagnoses Not on filedocumented in this encounter Additional Health Concerns Assessment Noted Time PHQ-9 Depression Total Score: 4 10/04/19 24 3:43 PM EDT PHQ-2 Depression Total Score: 2 10/04/19 24 3:43 PM EDT documented as of this encounter Care Teams Laborer Prestressed Concrete Relationship Specialty Start Date End Date Adair Mejias DO [address] [place] [address] PCP - General Internal Medicine 08/22/21 documented as of this encounter Additional Source Comments The information contained in this document represents components of the legal health record. It is not the complete legal health record.[facility]
--- OUTSIDE RECORDS SUMMARY | 2025-04-13 17:38 | XMS_ITS | Encounter Summary ---
Author Organization [facility] Address [address] [place] [address] [place] [address] Phone Care Team Providers Care Stitcher Special Machine Name Role Phone Willy Metcalf MD Unavailable [phone] Adair Mejias DO Primary Care Provider Wanda Stern RN Unavailable [phone] Adair Mejias DO Unavailable [phone] Encounter Details Date Type Department Care Team (Late st Contact Info) Description 09/16/2021 Ancillary Orders [facility], [address], 2nd [place] [address] Blake Espinosa MD [email or web address] Encounter for imaging to screen for metal [...] Info) Description 05/01/2025 8:30 AM EST Telemedicine [facility] Primary Care Clinic [address] [place] [address] [place] [address] Adair Mejias DO 170 [facility], 2nd [place] [address] 05/19/2025 4:00 PM EST Telemedicine [facility] Neurology Epilepsy Service [address] [place] [address] Nina Chacon MD [address] [place] [address] Department of TedoizpifGZDN574 [place] [address] [email or web address] 06/22/2025 1:30 PM EST Telemedicine [facility] Behavioral Neurology and Integrated [facility] Clinic [address] [facility], 8th Floor, [address] [place] [address] Christelle Phipps MD [address] [place] [address] [address] [place] [phone] [email or web address] 06/26/2025 1:30 PM EST Telemedicine [facility] Primary Care [address] [place] [address] Adair Mejias DO 170 [facility], 2nd [place] [address] [email or web address] documented as of this encounter Results * [...] documented as of this encounter Care Teams Stitcher Special Machine Relationship Specialty Start Date End Date Adair Mejias DO [address] [place] [address], 2nd [place] [address] [email or web address] PCP - General Internal Medicine 08/22/21 Willy Metcalf MD [address] [place] [address] [email or web address] Assigned Provider 07/31/20 07/29/22 Wanda Stern, RN [address] [place] [address] [email or web address] [facility] Elevator TroubleshooterVisual Design Lead 08/23/21 04/20/24 Adair Mejias DO [address] [place] [address], 2nd [place] [address] [email or web address] Insurance Assigned Provider 07/29/22 11/26/22 documented as of this encounter Additional Source Comments The information contained in this document represents components of the legal health record. It is not the complete legal health record.[facility]
--- OUTSIDE RECORDS SUMMARY | 2025-04-13 17:38 | XMS_ITS | Encounter Summary ---
Author Organization [employer] Address [address] [place] [address] [address] [address] Care Team Providers Care Sumac Tanner Name Role Phone Unavailable Primary Care Provider Unavailabl e Reason for Visit * Reason Onset Date Comments Dr. Russo vocalization seizures 01/01/2025 Encounter Details Date Type Department Care Team ([facility] st Contact Info) Description 01/01/2025 Telephone [facility] AD[facility] DENTAL [address] [place] [address] Caleb Russo, DMD [address] [place] [address] Dr. Russo vocalization seizures Social History Tobacco [...]
--- OUTSIDE RECORDS SUMMARY | 2025-04-13 17:38 | XMS_ITS | Clinical Summary ---
Author Organization [address] Address [address] [place] [address] Phone Care Team Providers Care Broker Associate Name Role Phone Unavailable Primary Care Provider Unavailabl e Surgical History Surgery Date Site/Laterality Comments BACK SURGERY PROCEDURE: HISTORICAL BACK SURGERY; COMMENT: Two previous back surgeries MOLE REMOVAL PROCEDURE: HISTORICAL MOLE (REMOVAL OF) Medical History Medical History Date Comments Depression with anxiety DX:Depre ssion with anxiety GERD (gastroesophageal reflux disease) 0 DX:GERD (gastroesophageal reflux disease) Malignant melanoma (CMS/HCC V24, CMS/HCC V28) 06/06/2011 DX:Malignant melanoma (HCC) Dysplastic nevus 06/06/2011 DX:Dysplastic n evus Family History Medical History Relation Name Comments Other: drug abuse Father Diabetes Maternal Grandmother Hypertension Maternal Grandmother Relation Name Status Comments Father Maternal Grandmother Mother Alive Social History Tobacco Use Types Packs/Day Years Used Date Smoking Tobacco: Former Cigarettes 0.3 Q uit: 2012 Smokeless Tobacco: Never Alcohol Use Standard Drinks/Week Comments No 0 (1 standard drink = 0.6 oz pur e alcohol) Sex and Gender Information Value Date Recorded Sex Assigned at Not on file Legal Sex Male 10:05 PM EST Gender Identity Not on file Sexual Orientation Not on file Plan of Treatment Upcoming Encounters Date Type Department Care Team ([facility] st Contact Info) Description 12/31/2025 10:50 AM EDT Consult Gastroenterology - [address] [phone] Tiffany Vásquez PA [address] [address] Health Maintenance Due Date Last Done Comments Colorectal Cancer Screening: Colonoscopy 1965 DTaP,Tdap,and Td Vaccines (1 - Tdap) 1984 Pneumococcal Vaccine: 50+ Years (1 of 1 - PCV) 2015 Zoster Vaccines (1 of 2) 2015 Depression Screening 04/23/2024 COVID-19 Vaccine (1 - 2024-2 6 season) 2024 Influenza Vaccine (#1) 2024 1, 01/04/2010, 02/19/2008 Cholesterol Screening (Lipid Panel) 04/10/2025 HIV Screening 04/10/2025 Hepatitis C Screening 04/10/2025 Medicare Annual Wellness Visit 04/10/2025 Social Influencers of Health Screening 04/10/2025 RSV Immunization Adult Patients (1 - 1-dose 75+ series) 2040 HIB Vaccines Aged Out No longer eligi ble based on patient's age to complete this topic HPV Vaccines Aged Out No longer eligi ble based on patient's age to complete this topic Hepatitis A Vaccines Aged Out No long er eligible based on patient's age to complete this topic Hepatitis B Vaccines Aged Out No long er eligible based on patient's age to complete this topic IPV Vaccines Aged Out No longer eligi ble based on patient's age to complete this topic MMR Vaccines Aged Out No longer eligi ble based on patient's age to complete this topic Meningococcal ACWY Vaccine Aged Out N o longer eligible based on patient's age to complete this topic Meningococcal B Vaccine Aged Out No l onger eligible based on patient's age to complete this topic RSV Immunization Patients Under 20 months Aged Out No longer eligible b ased on patient's age to complete this topic Varicella Vaccines Aged Out No longer eligible based on patient's age to complete this topic Insurance [employer] MEDICARE [place]VANT[place]
--- OUTSIDE RECORDS SUMMARY | 2025-04-13 17:38 | XMS_ITS | Encounter Summary ---
Author Organization [facility] Address [address] [place] [address] Phone Care Team Providers Care Weft Straightener Name Role Phone Mejias, Adair Jonathan Primary Care Provider Encounter Details Date Type Department Care Team (Late st Contact Info) Description 09/08/2024 Procedure Pass [facility] PERIOPERATIVE DEPT [address] [place] [phone] Social History Tobacco Use Types Packs/Day Years [...] high school, GED, job training, learning the Norwegian language, technical skills, or developing parenting skills)? [...] Info) Description 05/01/2025 8:30 AM EST Telemedicine [facility] Primary Care [address] [place] [address] Adair Mejias DO 170 [facility], 2nd [place] [address] 05/19/2025 4:00 PM EST Telemedicine [facility] Neurology Epilepsy Service [address] [place], [place] [address] Nina Chacon MD 55 [facility] Department of FckyxdxfxUNUL559 [place] [address] [email or web address] hima 06/22/2025 1:30 PM EST Telemedicine [facility] Neurology and [facility] 55 [facility], 8th Floor, [address] [place] [address] Christelle Phipps MD 55 [facility] [address] [place] [phone] [email or web address] 06/26/2025 1:30 PM EST Telemedicine [facility] Primary Care Clinic [address] [place] [address] [place] [address] Adair Mejias DO [address] [place] [address] [email or web address] documented as of this encounter Visit Diagnoses Not on filedocumented in this encounter Additional Health Concerns Assessment Noted Time PHQ-9 Depression Total Score: 4 10/04/19 24 3:43 PM EDT PHQ-2 Depression Total Score: 2 10/04/19 24 3:43 PM EDT documented as of this encounter Care Teams Weft Straightener Relationship Specialty Start Date End Date Adair Mejias DO [address] [place] [address], [address] [place] [address] PCP - General Internal Medicine 08/22/21 documented as of this encounter Additional Source Comments The information contained in this document represents components of the legal health record. It is not the complete legal health record.[facility]
--- OUTSIDE RECORDS SUMMARY | 2025-04-13 17:38 | XMS_ITS | Encounter Summary ---
Author Organization [facility] Address [address] [facility] [address] [place] [address] Phone Care Team Providers Care Shop Coordinator Name Role Phone Adair Mejias DO Primary Care Provider Wanda Stern RN Unavailable [phone] Encounter Details Date Type Department Care Team (Late st Contact Info) Description 07/19/2023 Procedure Pass [facility] [place], Maldonado 2 55 [facility], 2nd [place] [address] Social History Tobacco Use Types Packs/Day Years [...] Info) Description 05/01/2025 8:30 AM EST Telemedicine [address] [place] [address] Adair Mejias DO [address] [place] [address], 2nd [place] [address] 05/19/2025 4:00 PM EST Telemedicine [facility] Neurology Epilepsy Service [address] [place] [address] Nina Chacon MD 55 [facility] Department of YrxkffwjfHSHD648 [place] [address] [email or web address] hima 06/22/2025 1:30 PM EST Telemedicine [facility] Behavioral Neurology and Integrated [facility] Clinic 55 [facility], 8th Floor, [address] [place] [address] Christelle Phipps MD [address] [place] [address] [address] [place] [phone] [email or web address] hima 06/26/2025 1:30 PM EST Telemedicine [address] [place] [address] Adair Mejias DO [address] [place] [address], [address] [place] [address] [email or web address] documented as of this encounter Visit Diagnoses Not on filedocumented in this encounter Additional Health Concerns Infection Onset Date Last Indicated Resolved Time COVID-19 12/31/2023 12/31/2023 01/21/2024 1:22 AM EDT Assessment Noted Time PHQ-9 Depression Total Score: 4 07/19/19 11:29 AM EDT PHQ-2 Depression Total Score: 2 07/19/19 11:29 AM EDT documented as of this encounter Care Teams Shop Coordinator Relationship Specialty Start Date End Date Adair Mejias DO [address] [place] [address], 2nd [place] [address] PCP - General Internal Medicine 08/22/21 Wanda Stern, RN [address] [place] [address] [email or web address] PHCM Sieve RepairerScale Agent 08/23/21 04/20/24 documented as of this encounter Additional Source Comments The information contained in this document represents components of the legal health record. It is not the complete legal health record.[facility]
--- OUTSIDE RECORDS SUMMARY | 2025-04-13 17:38 | XMS_ITS | Encounter Summary ---
Author Organization [facility] Address [address] [facility] [address] [place] [address] Phone Care Team Providers Care Mouse Breeder Name Role Phone Willy Metcalf MD Unavailable [phone] Adair Mejias DO Primary Care Provider Wanda Stern RN Unavailable [phone] Adair Mejias DO Unavailable [phone] Encounter Details Date Type Department Care Team (Late st Contact Info) Description 09/02/2021 Procedure Pass [facility] - MRI [address] [facility], 6th [place] [address] Social History Tobacco Use Types Packs/Day Years [...] Encounters Date Type Department Care Team (Late Contact Info) Description 05/01/2025 8:30 AM EST Telemedicine [facility] Primary Care Clinic [address] [place] [address] Adair Mejias DO 170 [facility] [place], 2nd Floor [place] [id number] 05/19/2025 4:00 PM EST Telemedicine [facility] Neurology Epilepsy Service [address] [place] [address] Nina Chacon MD 55 [facility] Department of LuaktsxubPDDT831 [place] [address] [email or web address] hima 06/22/2025 1:30 PM EST Telemedicine [facility] Behavioral Neurology and Integrated Brain Medicine Clinic 55 [facility], 8th Floor, [address] [place] [address] Christelle Phipps MD 55 [facility] [address] [place] [phone] [email or web address] 06/26/2025 1:30 PM EST Telemedicine [facility] Primary Care [address] [place] [address] Adair Mejias DO 170 [facility] [place], 2nd [place] [address] [email or web address] documented as of this encounter Visit Diagnoses [...] documented as of this encounter Care Teams Mouse Breeder Relationship Specialty Start Date End Date Adair Mejias DO [address] [address] [email or web address] PCP - General Internal Medicine 08/22/21 Willy Metcalf MD [address] [address] [email or web address] [email or web address] Provider 07/31/20 07/29/22 Wanda Stern, RN [address] [place] [address] [email or web address] Mechanical DetailerCertified Ophthalmic Technologist 08/23/21 04/20/24 Adair Mejias DO [address] [address] [email or web address] Assigned Provider 07/29/22 11/26/22 documented as of this encounter Additional Source Comments The information contained in this document represents components of the legal health record. It is not the complete legal health record.[facility]
--- OUTSIDE RECORDS SUMMARY | 2025-04-13 17:38 | XMS_ITS | Encounter Summary ---
Author Organization [facility] Address [address] [place] [address] Phone Care Team Providers Care Supervisor Bindery Name Role Phone Mejias, Adair Castillo DO Primary Care Provider Wanda Stern RN Unavailable [phone] Reason for Visit * Reason Comments Medication Refill Encounter Details Date Type Department Care Team (Late st Contact Info) Description 02/20/2023 Refill [facility] Epilepsy Service 55 [facility], 8th Floor, [address] [place] [address] Blake Espinosa MD [email or web address] Medication Refill Social History Tobacco Use Types [...] Info) Description 05/01/2025 8:30 AM EST Telemedicine [address] [place] [address] Aadir Mejias DO 170 [facility], 2nd [place] [address] 05/19/2025 4:00 PM EST Telemedicine [facility] Neurology Epilepsy Service [address] [place] [address] Nina Chacon MD [address] [place] [address] Department of KrdzcgmakFPGT138 [place] [address] [email or web address] hima 06/22/2025 1:30 PM EST Telemedicine [facility] Behavioral Neurology and Integrated Brain [facility] Clinic 55 [facility], 8th Floor, [address] [place] [address] Christelle Phipps MD [address] [place] [address] [address] [place] [phone] [email or web address] hima 06/26/2025 1:30 PM EST Telemedicine [address] [place] [address] Adair Mejias, 170 [facility], 2nd [place] [address] documented as of this encounter Visit Diagnoses [...] as of this encounter Care Teams Supervisor Bindery Relationship Specialty Start Date End Date Adair Mejias DO [address] [place] [address], 2nd [place] [address] [email or web address] PCP - General Internal Medicine 08/22/21 Wanda Stern, RN [address] [place] [address] [email or web address] PHCM Score CallerAlterations Sewer 08/23/21 04/20/24 documented as of this encounter Additional Source Comments The information contained in this document represents components of the legal health record. It is not the complete legal health record.[facility]
--- OUTSIDE RECORDS SUMMARY | 2025-04-13 17:38 | XMS_ITS | Encounter Summary ---
Author Organization [facility] Address [address] [place] [address] [place] [address] Phone Care Team Providers Care Rug Cleaner Helper Name Role Phone Willy Metcalf MD Unavailable [phone] Adair Mejias DO Primary Care Provider Wanda Stern RN Unavailable [phone] Adair Mejias DO Unavailable Encounter Details Date Type Department Care Team (Late st Contact Info) Description 09/15/2021 Ancillary Orders [facility] LADARIUS, [address], 2nd [place] [address] Blake Espinosa MD [email or web address] Encounter for imaging to screen for metal [...] Description 05/01/2025 8:30 AM EST Telemedicine [facility] Primary Care Clinic [address] [place] [address] [place] [address] Adair Mejias DO 170 [facility], 2nd [place] [address] 05/19/2025 4:00 PM EST Telemedicine [facility] Neurology Epilepsy Service [address] [place] [address] Nina Chacon MD [address] [place] [address] Department of VkcunykbbHZDR256 [place] [address] [email or web address] 06/22/2025 1:30 PM EST Telemedicine [facility] Behavioral Neurology and Integrated Brain Medicine Clinic 55 [facility], 8th Floor, [address] [place] [address] Christelle Phipps MD [address] [place] [address] [address] [place] [phone] [email or web address] hima 06/26/2025 1:30 PM EST Telemedicine [facility] Primary Care [address] [place] [address] Adair Mejias DO 170 [facility], 2nd [place] [address] [email or web address] documented as of this encounter Results * [...] documented as of this encounter Care Teams Rug Cleaner Helper Relationship Specialty Start Date End Date Adair Mejias DO [address] [place] [address], 2nd [place] [address] [email or web address] PCP - General Internal Medicine 08/22/21 Willy Metcalf MD [address] [place] [address] [email or web address] Insurance Assigned Provider 07/31/20 07/29/22 Wanda Stern, RN [address] [place] [address] .[employer] [facility] Gut PullerCoal Grader 08/23/21 04/20/24 Adair Mejias DO [address] [place] [address], 2nd [place] [address] .[employer] Insurance Assigned Provider 07/29/22 11/26/22 documented as of this encounter Additional Source Comments The information contained in this document represents components of the legal health record. It is not the complete legal health record.[facility]
--- OUTSIDE RECORDS SUMMARY | 2025-04-13 17:38 | XMS_ITS | Encounter Summary ---
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 Procedures GABRIEL For Evoked Single Modality [place] GABRIEL,EVOKED MAGNET VALENCIA, SINGLE MODAL Jamal Lewis MD, PhD Phone: tel: fax: mailto:[email or web address] Referral ID Status Reason Start Date Expiration Date Visits Re quested Visits Authorized [id number] Closed 08/02/2023 08/22/2023 1 1 Encounter Details Date Type Department Care Team (Latest Contact Info) Description 07/23/2023 Ancillary Orders [facility] Neurosurgery Clinic 55 [facility], 7th Floor, [address] [place] [address] Jamal Lewis MD, PhD [address] [place] [address] [email or web address]@ [email or web address] 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, 2nd [place] [address] 05/19/2025 4:00 PM EST Telemedicine [facility] Neurology Epilepsy Service [address] [place] [address] Nina Chacon MD 55 [facility] Department of YhdhrzuqvEJDH486 [place] [address] [email or web address] hima 06/22/2025 1:30 PM EST Telemedicine [facility] Behavioral Neurology and Integrated Brain Medicine Clinic 55 [facility], 8th Floor, [address] [place] [address] Christelle Phipps MD [address] [place] [address] 110 [place] [address] [email or web address] hima 06/26/2025 1:30 PM EST Telemedicine [facility] [address] [place] [address] Adair Mejias DO 170 [facility], 2nd [place] [address] [email or web address] documented as of this encounter Results * [...] provided indication for this examination in Epic: presurgical evaluation for intractable epilepsy Review of the Electronic Medical Record reveals an additional history of: Manny Kearns is a 58-year-old male with intractable epilepsy. Seizure onset: Apr [...] words were abstract or concrete. At least 72-mtcytfob-kdki epochs were averaged prior to source analysis. The enclosed images depict magnetic mapping points superimposed on the patient's anatomic MRI. The circles represent the localization of the resulting equivalent current dipoles (ECDs), and the bars indicate the direction of the dipolar currents. The locations of the ECDs are not necessarily reflective of the location of activity. COMPARISON: MRI [id number], BRAIN PET 05/11/2023 FINDINGS: MAGNETOENCEPHALOGRAPHY (GABRIEL) MAPPING: [...] for several seconds (subclinical dischareges) MAPPING WITH WARRANTY COORDINATOR: Equivalent current dipoles (ECDs) at the peaks [...] temporal gyrus, as expected. LANGUAGE EVALUATION Abstract Marblemount task: <Dipole Counting Method> (Time Gqygui=477-241re) Hit Rate= 78/160 (44.9 %). GOF=50% 60% 70% Laterality Index 0.09 0.17 0.27 Procedure Note Cole Denis MD - 08/23/2023 GABRIEL FOR EVOKED SINGLE MODALITY, GABRIEL EPILEPTIC LOCALIZATION, GABRIEL EVOKEDADDITIONAL MODALITY Referring clinician's provided indication for this examination in [facility]:presurgical evaluation for intractable epilepsy Review of the [...] was positioned into the 306-channel GABRIEL gael. Xqse75-guaulz sessions of spontaneous records were obtained while [...] the words were abstract orconcrete. At least 08-bxhcmuta-fcgm epochs were averaged prior to sourceanalysis. The enclosed images depict magnetic mapping points superimposedon the patient's anatomic MRI. The circles represent the localization ofthe resulting equivalent current dipoles (ECDs), and the bars indicate thedirection of the dipolar currents. The locations of the ECDs are notnecessarily reflective of the location of activity. COMPARISON: MRI [id number], BRAIN PET 05/11/2023 FINDINGS: MAGNETOENCEPHALOGRAPHY (GABRIEL) MAPPING: [...] lastedfor several seconds (subclinical dischareges) MAPPING WITH WARRANTY COORDINATOR: Equivalent current dipoles (ECDs) at the peaks [...] temporal gyrus, as expected. LANGUAGE EVALUATION Abstract Marblemount task: <Dipole Counting Method> (Time Xhmzix=870-525zz) Hit Rate= 78/160 (44.9 %). GOF=50% 60% 70% Laterality Index 0.09 0.17 0.27 IMPRESSION: 1. Frequent interictal spiking localized to the right temporal lobe. 2. Normal AEF, bilaterally. 3. Bilateral language lateralization based on a semantic decision task,with some left-hemisphere bias. Jamal Lewis MD, PhD IMG GABRIEL Preeti [...] documented as of this encounter Care Teams Network Manager Relationship Specialty Start Date End Date Adair Mejias JonathanDO [address] [place] [address], 2nd [place] [address] [email or web address] PCP - General Internal Medicine 08/22/21 Wanda Stern, KACY [address] [place] [address] [email or web address] PHCM Pill Machine OperatorRoad Freight Conductor 08/23/21 04/20/24 documented as of this encounter Additional Source Comments The information contained in this document represents components of the legal health record. It is not the complete legal health record.[facility]
--- OUTSIDE RECORDS SUMMARY | 2025-04-13 17:38 | XMS_ITS | Encounter Summary ---
Author Organization [facility] Address [address] [place] [address] Phone Care Team Providers Care Roadability Machine Operator Name Role Phone Randell Adair Castillo DO Primary Care Provider Wanda Stern RN Unavailable [phone] Encounter Details Date Type Department Care Team (Latest Contact Info) Description 02/09/2023 Transcribe Orders [facility] Department of Neurology [address] [facility], [address] [place] [address] Te Zee [email or web address] Intractable epilepsy with status epilepticus, unspecified epilepsy [...] Info) Description 05/01/2025 8:30 AM EST Telemedicine [address] [place] [address] Adair Mejias, 170 [facility], 2nd [place] [address] 05/19/2025 4:00 PM EST Telemedicine [facility] Neurology Epilepsy Service [address] [place] [address] Nina Chacon MD 55 [facility] Department of QjdaddqldMEWV884 [place] [address] [email or web address] hima 06/22/2025 1:30 PM EST Telemedicine [facility] Neurology and Integrated Brain Medicine Clinic [address] [facility], 8th Floor, [address] [place] [address] Christelle Phipps MD [address] [place] [address] [address] [place] [phone] [email or web address] hima 06/26/2025 1:30 PM EST Telemedicine [address] [place] [address] Adair Mejias, 170 [facility], [address] [place] [address] documented as of this encounter Procedures Procedure Name Priority Date/Time Associated Diagnosis Comments OUTSIDE EEG (WITH INTERPRETATION) Routine 02/06/2023 12:20 PM EDT Intractable epilepsy with status epilepticus, unspecified epilepsy type OUTSIDE EEG (WITH INTERPRETATION) Routine 02/05/2023 3:20 PM EDT Intractable epilepsy with status epilepticus, unspecified epilepsy type documented in this encounter Results * testing machine operator Use Only-Outside EEG (with Interpretation) (02/06/2023 12:20 [...] Video was monitored intermittently by a qualified senior technologist for the entirety of the recording; quality check-ins were performed at a minimum of every two hours, checking, and documenting real-time data and video to assure the integrity and quality of the recording (e.g., camera position, electrode integrity and impedance), and identify the need for maintenance. For intermittent monitoring, an chief of field operations monitored no more than 12 patients concurrently. [...] MD NEUROLOGY ORDERABL ES Final Result * testing machine operator Use Only-Outside EEG (with Interpretation) (02/05/2023 3:20 [...] and placement protocol in person by an chief of field operations for the purposes of recording routine EEG: (19) cephalic, (2) T1/T2 sub-temporal, (1) ground, (1) system reference, and (2) ECG. Data was recorded on a 24-channel [employer] EEG recording device with a sampling rate [...] documented as of this encounter Care Teams Roadability Machine Operator Relationship Specialty Start Date End Date Adair Mejias DO [address] [place] [address], 2nd [place] [address] [email or web address] PCP - General Internal Medicine 08/22/21 Wanda Stern, RN [address] [place] [address] [email or web address] PHCM Vp PatientWindsmith 08/23/21 04/20/24 documented as of this encounter Additional Source Comments The information contained in this document represents components of the legal health record. It is not the complete legal health record.[facility]
--- OUTSIDE RECORDS SUMMARY | 2025-04-13 17:38 | XMS_ITS | Encounter Summary ---
Author Organization [facility] Address [address] [place] [address] [place] [address] Phone Care Team Providers Care Button Tufting Machine Operator Name Role Phone Willy Metcalf MD Primary Care Provider [phone] Willy Metcalf MD Unavailable [phone] Adair Mejias DO Primary Care Provider Wanda Stern RN Unavailable [phone] Adair Mejias DO Unavailable [phone] Encounter Details Date Type Department Care Team (Late Contact Info) Description 06/23/2021 Ancillary Orders [facility],Outside Imaging 30 [place] [address] System, Provider Not In, PhD Partners [address] [address] Social History Tobacco Use Types Packs/Day Years [...] Info) Description 05/01/2025 8:30 AM EST Telemedicine [facility] [address] [place] [address] [place] [address] Adair Mejias DO 170 [facility], 2nd [place] [address] [email or web address] 05/19/2025 4:00 PM EST Telemedicine [facility] Neurology Epilepsy Service [address] [place] [address] Nina Chacon MD [address] [place] [address] Department of [id number] [place] [address] [email or web address] 06/22/2025 1:30 PM EST Telemedicine [facility] Neurology and Integrated Brain Medicine Clinic 55 [facility], 8th Floor, [address] [place] [address] Christelle Phipps MD [address] [place] [address] [place] [address] [place] [phone] [email or web address] 06/26/2025 1:30 PM EST Telemedicine [facility] Primary Care [address] [place] [address] Adair Mejias DO 170 [facility], 2nd [place] [address] [email or web address] documented as of this encounter Results * [...] EST PHQ-2 Depression Total Score: 4 05/31/19 2:07 PM EST documented as of this encounter Care Teams Button Tufting Machine Operator Relationship Specialty Start Date End Date Willy Metcalf MD [address] [address] [email or web address] PCP - General Internal Medicine 02/10/17 08/21/21 Adair Mejias DO [address] [place] [email or web address] PCP - General Internal Medicine 08/22/21 Willy Metcalf MD [address] [address] [email or web address] Insurance Assigned Provider 07/31/20 07/29/22 Wanda Stern, RN [address] [place] [address] [email or web address] PHCM [employer] Software DeveloperInspector Sheet Metal Parts 08/23/21 04/20/24 Adair Mejias DO [address] [place] [address] [email or web address] Insurance Assigned Provider 07/29/22 11/26/22 documented as of this encounter Additional Source Comments The information contained in this document represents components of the legal health record. It is not the complete legal health record.[facility]
--- OUTSIDE RECORDS SUMMARY | 2025-04-13 17:38 | XMS_ITS | Encounter Summary ---
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 Procedures GABRIEL Evoked Additional Modality [place] GABRIEL,EVOKED MAGNET VALENCIA, EA ADDL MODAL Jamal Lewis MD, PhD Phone: tel: fax: mailto:[email or web address] Referral ID Status Reason Start Date Expiration Date Visits Re quested Visits Authorized [id number] Closed 08/02/2023 08/22/2023 1 1 Encounter Details Date Type Department Care Team (Latest Contact Info) Description 07/23/2023 Ancillary Orders [facility] Neurosurgery Clinic [address] [facility], 7th Floor, [address] [place] [address] Jamal Lewis MD, PhD [address] [place] [id number] [email or web address] 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, 2nd [place] [address] 05/19/2025 4:00 PM EST Telemedicine [facility] Neurology Epilepsy Service [address] [place] [address] Nina Chacon MD 55 [facility] Department of [id number] [place] [address] [email or web address] 06/22/2025 1:30 PM EST Telemedicine [facility] Behavioral Neurology and Integrated Brain Medicine Clinic [address] [facility], 8th Floor, [address] [place] [address] Christelle Phipps MD 55 [facility] 110 [place] [address] [email or web address] 06/26/2025 1:30 PM EST Telemedicine [facility] [address] [place] [address] Adair Mejias DO 170 [facility], 2nd [place] [address] [email or web address] documented as of this [...] words were abstract or concrete. At least 81-tggwtbze-jjao epochs were averaged prior to source analysis. The enclosed images depict magnetic mapping points superimposed on the patient's anatomic MRI. The circles represent the localization of the resulting equivalent current dipoles (ECDs), and the bars indicate the direction of the dipolar currents. The locations of the ECDs are not necessarily reflective of the location of activity. COMPARISON: MRI [id number], BRAIN PET 05/11/2023 FINDINGS: MAGNETOENCEPHALOGRAPHY (GABRIEL) MAPPING: [...] for several seconds (subclinical dischareges) MAPPING WITH BUILDING CODE INSPECTOR: Equivalent current dipoles (ECDs) at the peaks [...] temporal gyrus, as expected. LANGUAGE EVALUATION Abstract Mchenry task: <Dipole Counting Method> (Time Nrmhyn=[id number]) Hit Rate= 78/160 (44.9 %). GOF=50% 60% 70% Laterality Index 0.09 0.17 0.27 Procedure Note oCle Denis MD - 08/23/2023 GABRIEL FOR EVOKED SINGLE MODALITY, GABRIEL EPILEPTIC LOCALIZATION, GABRIEL EVOKEDADDITIONAL MODALITY Referring clinician's provided indication for this examination in [facility]:presurgical evaluation for intractable epilepsy Review of the [...] was positioned into the 306-channel GABRIEL gael. Obsd50-miglha sessions of spontaneous records were obtained while [...] the words were abstract orconcrete. At least 25-jjvrcobr-zwyk epochs were averaged prior to sourceanalysis. The enclosed images depict magnetic mapping points superimposedon the patient's anatomic MRI. The circles represent the localization ofthe resulting equivalent current dipoles (ECDs), and the bars indicate thedirection of the dipolar currents. The locations of the ECDs are notnecessarily reflective of the location of activity. COMPARISON: MRI [id number], BRAIN PET 05/11/2023 FINDINGS: MAGNETOENCEPHALOGRAPHY (GABRIEL) MAPPING: [...] lastedfor several seconds (subclinical dischareges) MAPPING WITH BUILDING CODE INSPECTOR: Equivalent current dipoles (ECDs) at the peaks [...] temporal gyrus, as expected. LANGUAGE EVALUATION Abstract Mchenry task: <Dipole Counting Method> (Time Wgetnd=[id number]) Hit Rate= 78/160 (44.9 %). GOF=50% 60% [...] documented as of this encounter Care Teams Water Resource Specialist Relationship Specialty Start Date End Date Adair Mejias JonathanDO [address] [place] [address], 2nd [place] [address] PCP - General Internal Medicine 08/22/21 Wanda Stern, KACY [address] [place] [address] [email or web address] PHCM Finisher MachineSwitchgear Repairer 08/23/21 04/20/24 documented as of this encounter Additional Source Comments The information contained in this document represents components of the legal health record. It is not the complete legal health record.[facility]
--- OUTSIDE RECORDS SUMMARY | 2025-04-13 17:39 | XMS_ITS | Encounter Summary ---
Author Organization [facility] Address [address] [facility] [address] [place] [address] Phone Care Team Providers Care Breadman Name Role Phone Adair Mejias DO Primary Care Provider Reason for Referral * Speech Therapy (Within 2 weeks) - New Request Specialty Diagnoses / Procedures Referred By Michelle johnson Referred To Contact Diagnoses Dysphagia, unspecified type Sasha Solano CNP [address] [place] [address] [address] [place] [address] Phone: tel: fax: mailto: Referral ID Status Reason Start Date Expiration Date V isits Requested Visits Authorized [id number] New Request 04/09/2025 04/09/2026 1 1 Reason for Visit * Reason Onset Date Comments Speech Therapy [facility] 04/09/2025 Encounter Details Date Type Department Care Team (Late st Contact Info) Description 04/09/2025 Telephone [facility] [address] [place] [address] Adair Mejias DO [address], 2nd [place] [address] [email or web address] Speech Therapy [facility] Social History Tobacco Use Types Packs/Day Years Used Date Smoking Tobacco: Former Cigarettes 1 40 1 052 - 05/09/2021 Smokeless Tobacco: Never Alcohol Use [...] GED, job training, learning the [place] language, technical skills, or developing parenting skills)? [...] as of this encounter Progress Notes * Lexus Martinez - 04/10/2025 8:35 AM EST Faxed to number provided * Aruna Hernandez - 04/09/2025 1:21 PM EST Deisi- Speech therapy [facility] lvm on the triage line returning phone call to July. States that they do not have the correct order to schedule pt. They do not do swallow evals externally with speech therapy. The only thing they can do with the diagnosis dysphasia is a modified barium swallow fluoroscopy procedure they will need a new order stating this. Deisi will be gone for the day and will be back tomorrow if a call back is needed. Once they receive the order the pt can be scheduled. Fax-[phone] [facility] Call Center CSS Agent (Please do not reply to this user, as this inbox is not monitored. Thank you.) Thank you. documented in this encounter Plan of Treatment Upcoming Encounters Date Type Department Care Team (Late st Contact Info) Description 05/01/2025 8:30 AM EST Telemedicine [facility] [place] [address] [place] [address] Adair Mejias DO 170 [facility], 2nd [place] [address] 05/19/2025 4:00 PM EST Telemedicine [facility] Neurology Epilepsy Service [address] [place] [address] Nina Chacon MD 55 [facility] Department of Bibsm[address]rcfJKOF[address] [place] [address] [email or web address] 06/22/2025 1:30 PM EST Telemedicine [facility] Neurology and Integrated Brain Medicine Clinic 55 [facility], 8th Floor, [address] [place] [address] Christelle Phipps MD 55 [facility] [place] [address] [place] [phone] [email or web address] 06/26/2025 1:30 PM EST Telemedicine [facility] Care [address] [place] [address] Adair Mejias DO [address] [address] [email or web address] documented as of this encounter Procedures Procedure Name Priority Date/Time Associated Diagnosis Comments AMB REFERRAL TO EXTERNAL MODIFIED BARIUM SWALLOW Routine 04/13/2025 4:23 PM EST Dysphagia, unspecified type documented in this encounter Results * Ambulatory referral to External Modified Barium Swallow (04/13/2025 4:23 PM EST) us Sasha Solano PARING MACHINE OPERATOR AMB EXTERNAL REFERRALS Fin al Result documented in this encounter Visit Diagnoses Diagnosis Dysphagia, unspecified type- Primary documented in this encounter Additional Health Concerns Assessment Noted Time PHQ-9 Depression Total Score: 5 03/26/20 9:51 AM EST PHQ-2 Depression Total Score: 3 03/26/20 9:51 AM EST documented as of this encounter Care Teams Breadman Relationship Specialty Start Date End Date Adair Mejias DO [address] [place] [address], [address] [place] [address] [email or web address] PCP - General Internal Medicine 08/22/21 documented as of this encounter Additional Source Comments The information contained in this document represents components of the legal health record. It is not the complete legal health record.[facility]
--- OUTSIDE RECORDS SUMMARY | 2025-04-13 17:39 | XMS_ITS | Encounter Summary ---
Author Organization [employer] Address [address] [place] [address] 7 [place] [address] Care Team Providers Care Residence Supervisor Name Role Phone Unavailable Primary Care Provider Unavailabl e Encounter Details Date Type Department Care Team (Latest Contact Info) Description 03/12/2019 Abstract [facility] CONVERSIONS Dental, Provider, DDS Social History [...]
--- OUTSIDE RECORDS SUMMARY | 2025-04-13 17:39 | XMS_ITS | Encounter Summary ---
Author Organization [facility] Address [address] [place] [address] Phone Care Team Providers Care Buyer Renter Name Role Phone Adair Mejias DO Primary Care Provider Encounter Details Date Type Department Care Team (Late st Contact Info) Description 2025 Orders Only [facility] Primary Care Clinic [facility] [place] [address] Provider, MD [address] [place] [place] [phone] Social History Tobacco Use Types Packs/Day Years [...] high school, GED, job training, learning the [place] language, technical skills, or developing parenting skills)? [...] Info) Description 05/01/2025 8:30 AM EST Telemedicine [facility] Primary Care Clinic [address] [place] [address] [place] [address] Adair Mejias DO 170 [facility], 2nd [place] [address] 05/19/2025 4:00 PM EST Telemedicine [facility] Neurology Epilepsy Service [address] [place] [address] Nina Chacon MD 55 [facility] Department of Kshgv[address]qyGIAX[address] [place] [address] [email or web address] 06/22/2025 1:30 PM EST Telemedicine [facility] Neurology and Integrated Brain Medicine Clinic 55 [facility], 8th Floor, [address] [place] [address] Christelle Phipps MD 55 [facility] [place] [address] [place] [phone] [email or web address] 06/26/2025 1:30 PM EST Telemedicine [facility] Care [address] [place] [address] Adair Mejias DO 170 [facility], [address] [place] [address] [email or web address] documented as of this encounter Procedures Procedure Name Priority Date/Time Associated Diagnosis Comments COLOGUARD (EXACT SCIENCES) (NON-MGB) Routine 2025 1:57 PM EST documented in this encounter Results * Cologuard (Exact Sciences) (Non-MGB) (2025 1:57 PM EST) Stool (Per Rectum) us Historical Provider BODY FLUIDS AND STOOLS OR DERABLES Final Result documented in this encounter Visit Diagnoses Not on filedocumented in this encounter Additional Health Concerns Assessment Noted Time PHQ-9 Depression Total Score: 5 03/26/20 25 9:51 AM EST PHQ-2 Depression Total Score: 3 03/26/20 9:51 AM EST documented as of this encounter Care Teams Buyer Renter Relationship Specialty Start Date End Date Adair Mejias DO [address] [place] [address], [address] [place] [address] [email or web address] PCP - General Internal Medicine 08/22/21 documented as of this encounter Additional Source Comments The information contained in this document represents components of the legal health record. It is not the complete legal health record.[facility]
--- OUTSIDE RECORDS SUMMARY | 2025-04-13 17:39 | XMS_ITS | Encounter Summary ---
Author Organization [facility] Address [address] [place] [address] Phone Care Team Providers Care Chief Dispatcher Service Name Role Phone MejiasAdair pressley Primary Care Provider Encounter Details Date Type Department Care Team (Late st Contact Info) Description 04/07/2025 Refill [facility] Epilepsy Service 55 [facility], 8th Floor, [address] [place] [address] Nina Chacon MD 55 [facility] Department of [address]nc[address]JONC[address] [place] [address] [email or web address] Social History Tobacco Use Types Packs/Day [...] high school, GED, job training, learning the Japanese language, technical skills, or developing parenting skills)? [...] as of this encounter Progress Notes * Lyndsey Haywood, KACY - 04/07/2025 2:55 PM EST Phone conversation with Manny regarding recent swallowing issues. For the last month or two, pills and solid food have been getting stuck in his throat, sometimes resulting in vomiting up the medication/food and in one instance, part of his zonisamide capsule came up and out of his nose (after blowing it) hours after administration. He took his anti-seizure medications around 7:30 this AM and could reportedly still feel them in his throat that afternoon. Saw his PCP on March 26 who placed referrals for swallow eval and GI work up. He has been two the ED two times for these issues. He clarified that he has had no trouble with thin liquids, but he is unable to do thicker consistencies (cottage cheese), solid foods, and pills. Has barely eaten in the last 2-3 days. Advised him tocontinue with thin liquid diet. Had a R Anterior Temporal Lobectomy back in August. He was wondering if this could be a complication from that surgery, although symptom onset was 1-2 months ago. He could not identify any other potential causes/triggers for this. I advised him to follow up with neurosurgery on this and to call his PCP office and ask them to prioritize referrals. I let him know I would ask Dr. Chacon if we can order his anti-seizure medications in a liquid formulation, or if she would be ok with crushing the pills (levetiracetam, zonisamide, and lacosamide all advise against breaking or crushing). Advised him to keep low threshold for going to an ED/calling 911 for any potential airway obstruction. Manny verbalized understanding. * Lizzy Almanza - 04/07/2025 2:05 PM EST [place], Reason for call: Pt is calling about a swallowing problem he's been having. Pt had surgery about 8 months ago and For the last two months PT has been struggling to swallow pills, both seizure and non-seizure medications. PT states the pills get stuck in the back of his throat. PT had to go to the ER a couple of times as well as vomited up medication. PT states that he had to call us a few times as he got sick andwas unsure if he should take his Keppra again cause it came back up. PT is looking for guidance on what to do about the swallowing problem. Pt is unsure if it is related to Neuro. Who is calling/best number to reach: PT, Manny Kearns, Action required: Please check in with PT([phone]) about swallowing problems to assess is a Neuro issue. Thank You! Visit date not found Visit date not found documented in this encounter Plan of Treatment Upcoming Encounters Date Type Department Care Team (Late st Contact Info) Description 05/01/2025 8:30 AM EST Telemedicine [address] [place] [address] Adair Mejias DO [address] [place] [address], [address] [place] [address] 05/19/2025 4:00 PM EST Telemedicine [facility] Neurology Epilepsy Service [address] [place] [address] Nina Chacon MD [address] [place] [address] Department of Mdc[address]zftrQGGS090 [place] [address] [email or web address] 06/22/2025 1:30 PM EST Telemedicine [facility] Behavioral Neurology and Integrated Brain Medicine Clinic [address] [facility], 8th Floor, [address] [place] [address] Christelle Phipps MD [address] [place] [address] [place] [address] [place] [phone] [email or web address] 06/26/2025 1:30 PM EST Telemedicine [address] [place] [address] Adair Mejias DO [address] [place] [address], [address] [place] [address] documented as of this encounter Visit Diagnoses Diagnosis Intractable epilepsy with status epilepticus, unspecified epilepsy type- Primary documented in this encounter Additional Health Concerns Assessment Noted Time PHQ-9 Depression Total Score: 5 03/26/20 25 9:51 AM EST PHQ-2 Depression Total Score: 3 03/26/20 25 9:51 AM EST documented as of this encounter Care Teams Chief Dispatcher Service Relationship Specialty Start Date End Date Adair Mejias DO [address] [place] [address], 2[address] [place] [address] [email or web address] PCP - General Internal Medicine 08/22/21 documented as of this encounter Additional Source Comments The information contained in this document represents components of the legal health record. It is not the complete legal health record.[facility]
--- OUTSIDE RECORDS SUMMARY | 2025-04-13 17:39 | XMS_ITS | Encounter Summary ---
Author Organization [facility] Address [address] [place] [address] Phone Care Team Providers Care Digital Printer Operator Name Role Phone Adari Mejias DO Primary Care Provider Encounter Details Date Type Department Care Team (Late st Contact Info) Description 03/31/2025 Telephone [facility] Service [address] [facility], 8th Floor, [address] [place] [address] Valencia Zelaya MD [address] [place] [address] [email or web address] Social History Tobacco Use Types Packs/Day [...] high school, GED, job training, learning the [place] language, technical skills, or developing parenting skills)? [...] as of this encounter Progress Notes * Valencia Zelaya MD - 03/31/2025 8:58 PM EST The patient paged the after-hours epilepsy line. He states that he has been having difficulty swallowing and therefore has been consuming only fluids (in addition to his usual medications). He is pending a GI appointment for this issue. Patient states that he was very hungry today, so he gave in and ate a peanut butter Ritz cracker. Unfortunately, he was not able to completely swallow it. He expresses feeling unsafe about swallowing his nighttime pills, including his ASMs, on top of the stuck cracker. He is wondering whether it would be safe to try. I told him that, from an epilepsy perspective, he should not miss his ASMs, but I cannot comment on whether it would be safe for him to swallowpills if the Ritz cracker is stuck. I advised him that, if he is not confident that he can safely swallow his pills, he needs to go to the ED to receive IV formulations of his ASMs. documented in this encounter Plan of Treatment Upcoming Encounters Date Type Department Care Team (Late st Contact Info) Description 05/01/2025 8:30 AM EST Telemedicine [address] [place] [address] Adair Mejias DO [address] [place] [address], 2nd [place] [address] 05/19/2025 4:00 PM EST Telemedicine [facility] Neurology Epilepsy Service [address] [place] [address] Nina Chacon MD [address] [place] [address] Department of [id number] [place] [address] [email or web address] 06/22/2025 1:30 PM EST Telemedicine [facility] [address] [facility], 8th Floor, [address] [place] [address] Christelle Phipps MD [address] [place] [address] [address] [place] [phone] [email or web address] 06/26/2025 1:30 PM EST Telemedicine [address] [place] [address] Adair Mejias DO [address] [facility], 2nd [place] [address] documented as of this encounter Visit Diagnoses Not on filedocumented in this encounter Additional Health Concerns Assessment Noted Time PHQ-9 Depression Total Score: 5 03/26/20 25 9:51 AM EST PHQ-2 Depression Total Score: 3 03/26/20 25 9:51 AM EST documented as of this encounter Care Teams Digital Printer Operator Relationship Specialty Start Date End Date Adair Mejias DO [address] [facility], [address] [place] [address] PCP - General Internal Medicine 08/22/21 documented as of this encounter Additional Source Comments The information contained in this document represents components of the legal health record. It is not the complete legal health record.[facility]
--- OUTSIDE RECORDS SUMMARY | 2025-04-13 17:39 | XMS_ITS | Encounter Summary ---
Author Organization [facility] Address [address] [place] [address] Phone Care Team Providers Care Director Of Distance Learning Name Role Phone Randell Adair Castillo DO Primary Care Provider Encounter Details Date Type Department Care Team (Late st Contact Info) Description 04/11/2025 Telephone [facility] Service [address] [facility], 8th Floor, [address] [place] [address] Danielle Sesay MD [address] [address] [email or web address] Social History Tobacco Use Types Packs/Day Years [...] high school, GED, job training, learning the Chadian language, technical skills, or developing parenting skills)? 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 He was last seen by his primary neurologist, Dr. Chacon, on 11/11/24; see note for more details. He paged because he has been taking zonisamide as 200 mg BID but wants to transition to 400 mg qhs as prescribed (has previously done this, accidentally switched to BID, prefers qhs dosing). He already took his AM dose; I advised him to take 400 mg tonight and continue with 400 mg qhs. He is going to [place] tomorrow but otherwise does not have important plans for which he cannot afford to be tired. He did not notice side effects in the initiation and uptitration of zonisamide, so hopefully the extra 200 mg is well-tolerated. He knows how to reach me if he has ongoing concerns. Dr. Chacon cc'd on this note. Danielle Sesay MD [facility] Epilepsy, PGY7 p. [phone] documented in this encounter Plan of Treatment Upcoming Encounters Date Type Department Care Team (Late st Contact Info) Description 05/01/2025 8:30 AM EST Telemedicine [facility] Primary Care [address] [place] [address] Adair Mejias DO [address] [facility], 2nd [place] [address] [email or web address] 05/19/2025 4:00 PM EST Telemedicine [facility] Neurology Epilepsy Service [address] [place] [address] Nina Chacon MD [address] [place] [address] Department of [id number] [place] [address] [email or web address] 06/22/2025 1:30 PM EST Telemedicine [facility] [address] [facility], 8th Floor, [address] [place] [address] Christelle Phipps MD [address] [place] [phone] [email or web address] 06/26/2025 1:30 PM EST Telemedicine [facility] Clinic [address] [place] [address] [place] [address] Adair Mejias DO [address] [place] [address], [address] [place] [email or web address] documented as of this encounter Visit Diagnoses Not on filedocumented in this encounter Additional Health Concerns Assessment Noted Time PHQ-9 Depression Total Score: 5 03/26/20 25 9:51 AM EST PHQ-2 Depression Total Score: 3 03/26/20 25 9:51 AM EST documented as of this encounter Care Teams Director Of Distance Learning Relationship Specialty Start Date End Date Adair Mejias DO [address] [place] [id number] PCP - General Internal Medicine 08/22/21 documented as of this encounter Additional Source Comments The information contained in this document represents components of the legal health record. It is not the complete legal health record.[facility]
--- OUTSIDE RECORDS SUMMARY | 2025-04-13 17:39 | XMS_ITS | Clinical Summary ---
Author Organization [facility] Address [address] [facility] 7t [place] [address] Care Team Providers Care Marketing Research Intern Name Role Phone Unavailable Primary Care Provider [...] ium Nitrate 1.1-5 % pasteIndication s:Dental caries [place] teeth for 2 minutes, morning and night. [...] Overview (11/15/2023): Followed by [facility] in [place]. He had seen Dr. Amanda Landaverde for Psychotherapy Last Assessment & Plan: Improved on current medication, mostly now seems to be secondary to his medical issues causing depressed mood. Continue current medication with no changes at this time. Failed back syndrome 11/15/2023 Overview (11/15/2023): Status post laminectomy x2-1992 and 1993. History of spinal cord stimulator implant 1998, removed 6m after. Followed by [facility] for episodic cortisone shots Last Assessment & Plan: Continues to have ongoing back issues, follows with [facility] pain management, with good control of [...] Overview (11/15/2023): Followed by [facility] Sears in [place], he has seen Dr. Angelina Landaverde for [...] Description 03/17/2025 3:00 PM EST Office Visit [facility] [address] [place] [address] Caleb Russo DMD Denture irritation (Primary Dx) 03/03/2025 2:30 PM EST Office Visit [facility] [address] [place] [address] Caleb Russo DMD Denture irritation (Primary Dx) 02/23/2025 2:30 PM EST Office Visit [facility] [address] [place] [address] Caleb Russo DMD Denture irritation (Primary Dx) 02/17/2025 2:00 PM EDT Office Visit [facility] [address] [place] [address] Caleb Russo DMD Partial edentulism, unspecified edentulism class (Primary Dx) 02/06/2025 8:30 AM EDT Office Visit [facility] [address] [place] [address] Caleb Russo DMD Dental caries (Primary Dx); Partial edentulism, unspecified edentulism class 01/26/2025 3:00 PM EDT Office Visit [facility] [address] [place] [address] Caleb Russo DMD Partial edentulism, unspecified edentulism class (Primary Dx); Dental caries 01/15/2025 11:00 AM EDT Office Visit [facility] [address] [place] [address] Caleb Russo DMD Dentin hypersensitivity (Primary Dx) from Last 3 Months Social [...] Use Screening 1977 Hepatitis C Screening 1983 RSV Patients and Patients Aged 60 years [...] 0 12/13/2023, 11/08/2020 Dental X-Ray: Bitewings 01/01/2026 01/01/20, 10/15/2024, 11/15/2023, Additional history exists Tobacco Screening [...] Routine 01/15/2025 11:00 AM EDT Dentin hypersensitivity PROPHYLAXIS - ADULT Routine 12/31/2024 2 :00 PM EDT Dental caries BITEWINGS - 4 RADIOGRAPHIC IMAGES Routine 12/31/2024 2:00 PM EDT Dental caries PERIODIC ORAL EVALUATION - ESTABLISHED PATIENT Routine 12/31/2024 2:00 PM EDT Dental caries INTRAORAL - COMPLETE SERIES OF RADIOGRAPHIC IMAGES Routine 11/15/2023 1:30 PM EDT Dental caries from Last 3 Months or Most Recently Relevant to Health Maintenance Insurance [facility] MEDICAID STAND ADULT
--- OUTSIDE RECORDS SUMMARY | 2025-04-13 17:39 | XMS_ITS | Encounter Summary ---
Author Organization [employer] Address [address] [place] [address] 7 [place] [address] Care Team Providers Care Fire Control System Installer Name Role Phone Unavailable Primary Care Provider Unavailabl e Encounter Details Date Type Department Care Team (Latest Contact Info) Description 01/28/2020 Abstract [facility] CONVERSIONS Dental, Provider, DDS Social History [...]
--- OUTSIDE RECORDS SUMMARY | 2025-04-13 17:39 | XMS_ITS | Clinical Summary ---
Author Organization [facility] Address [address] [place] [address] Phone Care Team Providers Care Supervisor Packing Room Name Role Phone Mejias, Jamesbenita Silvaw Primary Care Provider Allergies Active Allergy Reactions [...] hours as needed for headache. 5 Active lacosamide (VIMPAT) 150 mg TabIndications:T [...] 360 capsule 1 5 06/17/19 26 Active levETIRAcetam (KEPPRA) 500 MG tabletIndication s:Intractable [...] nightly at bedtime. 60 tablet 5 Active levETIRAcetam (KEPPRA) 500 mg/5 mL (5 mL) SolnIndications: Intractable epilepsy with status epilepticus, unspecified epilepsy type Take 15 mL (1,500 mg total) by mouth 2 (two) times a day. 900 mL 5 5 Active zonisamide (ZONEGRAN) 100 mg/5 mL oral suspensionIndica tions:Intractabl e epilepsy with status epilepticus, unspecified epilepsy type Take 20 mL (400 mg total) by mouth nightly at bedtime. 600 mL 5 5 Active lacosamide (VIMPAT) 10 mg/mL SolnIndications: Intractable epilepsy with status epilepticus, unspecified epilepsy type Take 15 mL (150 mg total) by mouth 2 (two) times a day. 900 mL 5 5 Active citalopram (CELEXA) 10 mg/5 mL suspension Take 10 mL (20 mg total) by mouth daily. 900 mL 3 5 Active docusate sodium (COLACE) 100 MG capsule Take 1 capsule (100 mg total) by mouth 2 (two) times a day. 30 capsule 5 04/13/20 25 Discontinu ed(No longer taking) senna (SENOKOT) 8.6 mg tablet Take 1 tablet by mouth 2 (two) times a day. 30 tablet 5 04/13/20 25 Discontinu ed(No longer taking) clonazePAM (KLONOPIN) 2 MG tablet Take 1 tablet (2 mg total) by mouth nightly at bedtime. 60 tablet 5 03/16/20 25 Discontinu ed(Reorder ) FLUoxetine (PROZAC) 20 MG capsule Take 2 capsules (40 mg total) by mouth daily. 180 capsule 3 04/13/20 25 Discontinu ed(No longer taking) Active Problems Problem Noted Date Diagnosed Date [...] lobe epilepsy, intractable 06/09/2021 Assessment & Plan (03/28/2025 5:36 PM EST): Did have episode the other day, continue monitoring. Follow-up with neurology. Assessment & Plan (11/19/2024 10:29 PM EDT): [...] BY JAMES MEJIAS DO Referral placed to [facility] neurology per patient request for second opinion. [...] type-rocked forward several times and repeated umm, yeah can see visible change in patient's facial [...] WRITTEN ON 02/25/2023 11:30 PM BY JAMES MEJIAS, Stable and improved, continue current medications as [...] WRITTEN ON 09/20/2024 3:32 PM BY JAMES MEJIAS, Patient reports no known seizures since procedure [...] team - Discussed driving restrictions as per [place] state law (6 months of seizure freedom required), and avoiding situations wherein patient might be injured should a seizure recur (ex climbing ladder, swimming without a rn stars, taking bath unsupervised, etc). - Discussed importance [...] Overview (11/26/2017): Followed by [facility] in [place], he has seen Dr. Angelina Landaverde for Psychotherapy History of duodenal ulcer Overview (11/14/2019): diagnosed by endoscopy around 1984 Depression Overview (05/31/2020): Followed by [facility] in [place]. He had seen Dr. Amanda Landaverde for [...] were negative 07/02. Followed by Dr. [facility] Panic attacks Pulmonary nodules Overview (06/09/2021): stable Failed back syndrome Overview (10/09/2021): Status post laminectomy x2-1992 and 1993. History of spinal cord stimulator implant 1998, removed 6m after. Followed by [facility] for episodic cortisone shots Assessment & Plan (10/09/2021 10:57 PM EDT): Continues to have ongoing back issues, follows with [facility] pain management, with good control of [...] Encounters Date Type Department Care Team Description 04/13/2025 10:30 AM EST Telemedicine [facility] Behavioral [facility]rology [facility] [address] [facility], 8th [address], [address] [place] [address] Christelle Phipps MD Depression, unspecified depression type (Primary Dx); EVE (generalized anxiety disorder); Panic disorder 04/11/2025 Telephone [facility] Epilepsy Service [address] [facility] [address], 8th [address], [address] [place] [address] Danielle Sesay MD 04/09/2025 Telephone [facility] Primary Care [address] [place] [address] James Mejias DO Speech Therapy [facility] 04/07/2025 Refill [facility] Epilepsy Service [address] [facility], 8th Floor, [address] [place] [address] Nina Chacon MD 2025 Orders Only [facility] Primary [address] [place] [address] ProviderHope MD 03/31/2025 Telephone [facility] Epilepsy [facility] [address] [facility] [address], 8th Floor, [address] [place] [address] Valencia Zelaya MD 03/30/2025 Telephone [facility] Epilepsy [facility] [address] [facility], 8th [address], [address] [place] [address] Aeljandra Douglas MBBS 03/27/2025 Telephone [facility] Primary [address] [place] [address] James Mejias DO UNSIGNED NOTE & URGENT REFERRALS 03/26/2025 10:30 AM EST Office Visit [address] [place] [address] James Mejias DO Dysphagia, unspecified type (Primary Dx); Temporal lobe epilepsy, intractable; Intractable epilepsy with status epilepticus, unspecified epilepsy type 03/23/2025 Telephone [facility] Epilepsy [facility] [address] [facility], 8th Floor, [address] [place] [address] Nina Chacon MD 03/23/2025 Orders Only [facility] Primary Care [facility] [address] [place] [address] Unknown, MD Valdez 03/20/[address] [place] [address] James Mejias DO Medication Problem 03/20/2025 Orders Only [facility] Primary [facility] [address] [place] [address] Hope Brown MD 03/18/2025 Telephone [place] [address] Neuro ICU [address] [place] [phone] Corrie Bains MD, MBBS 03/16/[address] [place] [address] Didi Hardy Medication Refill 03/10/[address] [place] [address] Sasha Solano CNP Medication Refill 03/10/[address] [place] [address] James Mejias, Medication Refill 02/27/[address] [place] [address] James Mejias DO 02/06/[address] [place] [address] Didi Hardy Medication Refill 01/21/2025 4:00 PM EDT Telemedicine [facility] Neurosurgery Clinic [address] [facility], 7th Floor, [address] [place] [address] Jamal Lewis MD, PhD Temporal lobe epilepsy, intractable (Primary Dx) 01/12/2025 11:30 AM EDT Telemedicine [facility] [address] [facility], 8th Floor, [address] [place] [address] Christelle Phipps MD EVE (generalized anxiety disorder) (Primary Dx); Panic disorder from Last 3 Months Immunizations Immunization Administration [...] high school, GED, job training, learning the Bulgarian language, technical skills, or developing parenting skills)? [...] Sign Reading Time Taken Comments Blood Pressure 106/60 03/26/2025 10:22 AM EST Pulse 74 03/26/2025 10:22 AM EST Temperature 36.7 C (98 F) 09/18/2024 1:02 PM EDT Respiratory Rate 16 09/11/2024 11:20 AM EDT Oxygen Saturation 98% 03/26/2025 10:22 AM EST Inhaled Oxygen Concentration - - Weight 68.5 kg (151 lb) 03/26/2025 10:22 AM EST Height 177.8 cm (5' 10 ) 09/08/2024 6:00 AM EDT Body Mass Index 21.67 09/08/2024 6:00 AM EDT Plan of Treatment Upcoming Encounters Date Type Department Care Team (Late st Contact Info) Description 05/01/2025 8:30 AM EST Telemedicine [facility] Primary Care [address] [place] [address] James Mejias DO [address] [facility], 2nd [place] [address] 05/19/2025 4:00 PM EST Telemedicine [facility] Neurology Epilepsy Service [address] [place] [address] Nina Chacon MD [address] [facility] Department of [id number] [place] [address] [email or web address] 06/22/2025 1:30 PM EST Telemedicine [facility] Neurology and Integrated [facility] Clinic [address] [facility], 8th Floor, [address] [place] [address] Christelle Phipps MD [address] [facility] [address] [place] [phone] [email or web address] 06/26/2025 1:30 PM EST Telemedicine [facility] Primary Care Clinic [address] [place] [address] [place] [address] James Mejias DO [address] [facility], 2nd [place] [address] [email or web address] Health Maintenance Due Date Last Done Comments COLONOSCOPY 2010 FIT TEST 2010 FOBT 2010 SIGMOIDOSCOPY 2010 VIRTUAL COLONOSCOPY 2010 LUNG CANCER SCREENING (LDCT Only) 2015 RSV VACCINE (1 - Risk 50-74 years 1-dose series) 2015 PNEUMOCOCCAL VACCINES (50+ years) (3 of 3 - PCV20 or PCV21) 11/28/2020 11/29/2015, 04/23/2010 LIPID PANEL 02/05/2024 02/04/2019, 02/04/2019 INFLUENZA VACCINE (#1) 2024 2, 01/30/2022, 05/13/2021, Additional history exists COVID-19 VACCINE ( season) 2024 04/04/2022, 11/08/2021, 02/18/2021, Additional history exists DEPRESSION SCREENING 03/26/2026 03/26/2025, 03/26/20 SMOKING Hx and SMOKELESS TOBACCO SCREENING 04/13/2026 04/13/2025 COLOGUARD 03/13/2028 03/13/2025 COLORECTAL CANCER SCREENING 03/13/2028 [...] this topic Medical Devices Implanted Type Area Pyrometer Mechanic Device Identifier Shelf Expiration Date Model / Serial / Lot Cover Oswaldo 17mm Hole Matrixneruo Titanium - [id number] Implanted:Qty: 1 on 09/08/2024 by Danielle Lu MD at [facility] Right: Scalp [employer] 04503.0 23 / / Description:also 2 squares Bone Plate 0.4x12mm 2 Hole Cranial Matrixneuro Ti Straight Rigid - [id number] Implanted:Qty: 5 on 09/08/2024 by Danielle Lu MD at [facility] Right: Scalp [employer] 04503.0 62 / / Screw Bone 1.5x4mm Ti Self Drilling Matrixneuro Pk/5ea - [id number] Implanted:Qty: 24 on 09/08/2024 by Danielle Lu MD at [facility] Right: Scalp [employer] 04503.1 04.05 / / Matrix Dura 4x5in Onlay Plus - [id number] Implanted:Qty: 1 on 09/08/2024 by Danielle Lu MD at [facility] Right: Brain MARIE CRANIOMAXILLOFACIAL DI 06/21/2027 [id number] / / [id number] Procedures Procedure Name Priority Date/Time Associated Diagnosis Comments AMB REFERRAL TO EXTERNAL MODIFIED BARIUM SWALLOW Routine 04/13/2025 4:23 PM EST Dysphagia, unspecified type COLOGUARD (EXACT SCIENCES) (NON-MGB) Routine 2025 1:57 PM EST OUTSIDE IMAGING Routine 03/22/2025 10:22 AM EST COLOGUARD (EXACT SCIENCES) (NON-MGB) Routine 03/13/2025 9:59 AM EST LIPID PANEL Routine 02/04/2019 11:32 AM EDT Routine general medical examination at a health care facility OUTSIDE HIV Routine 11/27/2017 from Last 3 Months or Most Recently Relevant to Health Maintenance Results * Ambulatory referral to External Modified Barium Swallow (04/13/2025 4:23 PM EST) us Sasha Solano ADVISORY SERVICES ASSOCIATE AMB EXTERNAL REFERRALS Fin al Result * Cologuard (Exact Sciences) (Non-MGB) (2025 1:57 PM EST) Only the most recent of2 resultswithin the time period is included. Stool (Per Rectum) us Historical Provider BODY FLUIDS AND STOOLS OR DERABLES Final Result * Outside Imaging Report Only (03/22/2025 10:22 AM EST) us Unknown Unknown MD IMG XR CHEST Edited Result - Final * (ABNORMAL) Lipid panel (02/04/2019 11:32 AM EDT) HDL 38 mg/dL [facility] Comment: Interpretation <40 mg/dL: Low HDL cholesterol (major risk factor for CHD) Greater than or equal to 60 mg/dL: High HDL cholesterol ( negative risk factor for CHD) HDL - cholesterol is affected by a number of factors, e.g. smoking, excerise, hormones, sex and age. CHOLESTEROL 115 0 - 240 mg/dL [facility] TRIGLYCERIDES 50 30 - 160 mg/dL [facility] LDL 67 50 - 129 mg/dL [facility] Comment: LDL levels in terms of risk for coronary heart disease: <100 mg/dL: Optimal 100-129 mg/dL: Near or above optimal 130-159 mg/dL: Borderline high 160-189 mg/dL: High >190 mg/dL: Very High CARDIAC RISK RATIO 3.0(L) 3.4 - 5.0 C [facility] Blood 02/04/2019 11:3 2 AM EDT 02/04/2019 11:35 AM EDT Willy Metcalf MD LAB BLOOD BKR ORDERABLES F inal Result [facility] [address] [place] [address] * OUTSIDE HIV TEST (11/27/2017) HIV - External Neg Historical Provider LAB BLOOD ORDERABLES Preeti l Result from Last 3 Months or Most Recently Relevant to Health Maintenance Insurance MEDICARE PART A & B [facility] FULL [facility] AETNA O MEDICARE REPLACEMENT MEDICARE PART A & B [facility] FULL [facility] AETNA PPO MEDICARE REPLACEMENT MEDICARE PART A & B [facility] NET FULL MEDICARE PART A & B [employer] FULL MEDICARE PART A & B [employer] FULL [facility] AETNA O MEDICARE REPLACEMENT MEDICARE PART A & B [facility] NET FULL MEDICARE PART A & B [facility] FULL Member Subscriber Plan / Payer (Ef fective 2017-Present) Name:Manny Kearns Relation to Subscriber:Self Name:Som Manny Payer ID:Not on file Group ID:Not on file Type:Medicaid Address: [address] AETNA O MEDICARE REPLACEMENT MEDICARE PART A & B [facility] FULL [facility] AETNA O MEDICARE REPLACEMENT MEDICARE PART A & B [facility] FULL [facility] AETNA O MEDICARE REPLACEMENT Advance Directives For more information, please contact: [phone] (9AM - 5PM Kelsey/[facility], Sunday-Sunday) Documents on File Type Date Recorded Patient Commercial Underwriter Expl anation Healthcare Proxy 05/10/2023 7:25 PM [...] Code Status Confirmed With: Patient Care Teams Supervisor Packing Room Relationship Specialty Start Date End Date James Mejias DO [address] [place] [address], 2nd [place] [address] PCP - General Internal Medicine 08/22/21 Additional Source Comments The information contained in this document represents components of the legal health record. It is not the complete legal health record.[facility]
--- OUTSIDE RECORDS SUMMARY | 2025-04-13 17:39 | XMS_ITS | Encounter Summary ---
Author Organization [facility] Address [address] [place] [address] Phone Care Team Providers Care Airways Control Specialist Name Role Phone Mejias, Adair Jonathan Primary Care Provider Encounter Details Date Type Department Care Team (Late st Contact Info) Description 03/23/2025 Orders Only [facility] Primary Care Clinic [address] [place] [address] Unknown, Unknown, Social History Tobacco Use Types Packs/Day Years [...] high school, GED, job training, learning the [place] language, technical skills, or developing parenting skills)? [...] Info) Description 05/01/2025 8:30 AM EST Telemedicine [facility] Primary Care [address] [place] [address] Adair Mejias DO [address] [facility], [address] [place] [address] 05/19/2025 4:00 PM EST Telemedicine [facility] Neurology Epilepsy Service [address] [place] [address] Nina Chacon MD 55 [facility] Department of [id number] [place] [address] [email or web address] 06/22/2025 1:30 PM EST Telemedicine [facility] Neurology and Integrated Brain Medicine Clinic [address] [facility], 8th Floor, [address] [place] [address] Christelle Phipps MD [address] [place] [address] [address] [place] [phone] [email or web address] 06/26/2025 1:30 PM EST Telemedicine [facility] Care [address] [place] [address] Adair Mejias DO [address] [facility], [address] [place] [phone] [email or web address] documented as of this encounter Procedures Procedure Name Priority Date/Time Associated Diagnosis Comments OUTSIDE IMAGING Routine 03/22/2025 10:22 AM EST documented in this encounter Results * Outside Imaging Report Only (03/22/2025 10:22 AM EST) us Unknown Unknown IMG XR CHEST Edited Result - Final documented in this encounter Visit Diagnoses Not on filedocumented in this encounter Additional Health Concerns Assessment Noted Time PHQ-9 Depression Total Score: 4 10/04/19 24 3:43 PM EDT PHQ-2 Depression Total Score: 2 10/04/19 24 3:43 PM EDT documented as of this encounter Care Teams Airways Control Specialist Relationship Specialty Start Date End Date Adair Mejias DO [address] [place] [address], [address] [place] [phone] [email or web address] PCP - General Internal Medicine 08/22/21 documented as of this encounter Additional Source Comments The information contained in this document represents components of the legal health record. It is not the complete legal health record.[facility]
--- OUTSIDE RECORDS SUMMARY | 2025-04-13 17:39 | XMS_ITS | Encounter Summary ---
Author Organization [employer] Address [address] [place] [address] 7 [place] [address] Care Team Providers Care Parking Technician Name Role Phone Unavailable Primary Care Provider Unavailabl e Encounter Details Date Type Department Care Team (Latest Contact Info) Description 02/14/2021 Abstract [facility] CONVERSIONS Dental, Provider, DDS Social History [...]
--- OUTSIDE RECORDS SUMMARY | 2025-04-13 17:39 | XMS_ITS | Encounter Summary ---
Author Organization [facility] Address [address] [place] [address] Phone Care Team Providers Care Fitness Assistant Name Role Phone RandellKellibenita Silvaw Primary Care Provider Encounter Details Date Type Department Care Team (Late st Contact Info) Description 03/23/2025 Telephone [facility] Epilepsy Service [address] [facility], 8th Floor, [address] [place] [address] Nina Chacon MD 55 [facility] Department of [id number] [place] [address] [email or web address] Social History Tobacco Use Types Packs/Day Years [...] high school, GED, job training, learning the [place] language, technical skills, or developing parenting skills)? [...] as of this encounter Progress Notes * Valentina Victoria RN - 03/23/2025 1:16 PM EST Called return to [place] - let him know that Dr. Chacon recommends taking 1/2 dose of his ASMs notand then go back to normal schedule tonight. He also was saying he has been having trouble swallowing his pills, they are able to be swallowed but he feels like they are sitting or stuck in his upper esophagus or back of throat . He also wanted to make an appointment with neurosurgery because he feels like his plate is starting to bother him. I told Manny to call [facility]urge[facility] to let them know of this and to make an appointment with them. * Lizzy Almanza - 03/23/2025 12:24 PM EST [place], Reason for call: PT had to go to the ER yesterday for a non-seizure related issue. Pt aklways takes his medication at around 9:30, 10 in both the AM and PM and never misses a dose. PT did not get out of the ER until 3:30 AM when he took his dosage. PT is wondering when to take the morning dose or if he should skip it and just take evening dosage. Who is calling/best number to reach: PT Manny Odonnellfredo, Action required: Please call Manny back at [phone] regarding when to take his medication. Thank You! Visit date not found Visit date not found documented in this encounter Plan of Treatment Upcoming Encounters Date Type Department Care Team (Late st Contact Info) Description 05/01/2025 8:30 AM EST Telemedicine [facility] Primary Care Clinic [address] [place] [address] [place] [address] Adair Mejias DO 170 [facility], 2nd [place] [address] 05/19/2025 4:00 PM EST Telemedicine [facility] Neurology Epilepsy Service [address] [place] [address] Nina Chacon MD 55 [facility] Department of [id number] [place] [address] [email or web address] 06/22/2025 1:30 PM EST Telemedicine [facility] Behavioral Neurology and Integrated Brain Medicine Clinic 55 [facility], 8th Floor, [address] [place] [address] Christelle Phipps MD 55 [facility] [address] [place] [phone] [email or web address] 06/26/2025 1:30 PM EST Telemedicine [facility] Primary Care Clinic [address] [place] [address] [place] [address] Adair Mejias DO [address] [place] [address], [address] [place] [address] [email or web address] documented as of this encounter Visit Diagnoses Not on filedocumented in this encounter Additional Health Concerns Assessment Noted Time PHQ-9 Depression Total Score: 4 10/04/19 24 3:43 PM EDT PHQ-2 Depression Total Score: 2 10/04/19 24 3:43 PM EDT documented as of this encounter Care Teams Fitness Assistant Relationship Specialty Start Date End Date Adair Mejias DO [address] [place] [address], [address] [place] [address] [email or web address] PCP - General Internal Medicine 08/22/21 documented as of this encounter Additional Source Comments The information contained in this document represents components of the legal health record. It is not the complete legal health record.[facility]
--- NOTE | 2025-04-14 11:58 | MHC.SL.IMP ---
Date of Plan of Treatment: 04/13/25 Onset of Symptoms/Illness: 02/11/25 Date Treatment Started: 04/13/25 Admitting Diagnosis: Epilepsy Primary Speech & Language Diagnosis: R13.13 Pharyngeal Phase Dysphagia Reason for Today's Visit: 57446 Modified Barium Swallow Study Pre-evaluation Dietary Consistencies: Regular Pre-evaluation Liquid Consistency: Thin Pre-evaluation Medication Administration: Whole with Liquid Medical History: Modified Barium Swallow Study Fluoroscopic Evaluation of Swallowing Function CPT Code 51768 Evaluation Year: 2024 Reason for Study: Patient reporting difficulty swallowing pills. Referring Physician: Sasha Solano CNP Evaluating Clinician: Monserrat Broderick MA, CCC-NURSING ADMINISTRATOR Study Number: 1 Patient Name: Manny Kearns Status: Outpatient, Ambulatory Age: 60 Sex: Male Medical History Medical History (Updated 03/22/25 @ 21:51 by Veronica Roca MD) Epilepsy Current (pre-evaluation) Intake/Diet: Route: PO Diet Grade: Regular Liquid Consistencies: Thin Pre-Study Functional Oral Intake Scale (FOIS): 7- Total oral intake with no restrictions Pain: None reported at time of study SUBJECTIVE: Patient is a 60 year old male referred for a modified barium swallow study (MBSS) by his primary care provider, Sasha Solano CNP, due to patient?s reports of being ?unable to swallow medication.? Patient?s history is significant for epilepsy and prior neurosurgery for refractory seizure. Patient reports his swallow difficulty began after his partial brain resection. He has been having difficulty taking pills, but denies difficulty swallowing liquids. He says he is able to swallow soft foods, such as purees and yogurts, and has become afraid to eat solid foods. He is able to swallow most foods, but noticed certain foods such as dry crackers and Ritz peanut butter crackers feel stuck in his throat. He has restricted himself to smoothies and protein shakes only for fear of not being able to swallow solid food. He is crushing the medications he is able to crush. Other pills he swallows whole. He says sometimes he feels it get stuck and this feeling persists all day despite drinking a lot of ice cold ?slushy? water from the freezer. He says the sensation does not go away until the next morning when he wakes up. He recalls coughing up half of a capsule after swallowing it. Patient did visit the ED recently on 03/22 for complaints of dysphagia and was discharged on a Full Liquid Diet and outpatient G.I. consultation. Patient reports he has been unable to see the G.I. specialist, as he was told they are booked out into December. Patient mentioned he has a relative who had needed ?balloon stretching? in her throat for her swallow. Oral Motor Exam Facial Symmetry: Symmetrical Mouth Occlusion: Normal Oral-Facial Teeth Characteristics: Intact/Normal Oral-Facial Lip Pucker Description: Normal Oral-Facial Smile (Lips) Description: Normal Oral-Facial Puff Cheeks Description: Normal Tongue Size: Normal Food and Liquid Trials: Oral Impairment: Lip Closure: 0=No labial escape Oral Impairment: Tongue Control During Bolus Hold: 0=Cohesive bolus between tongue to palatal seal Oral Impairment: Bolus Preparation/Mastication: 0=Timely and efficient chewing and mashing Oral Impairment: Bolus Transport/Lingual Motion: 0=Brisk tongue motion Oral Impairment: Oral Residue: 1=Trace residue lining oral structures Oral Impairment:Initiation of Pharyngeal Swallow: 0=Bolus head at posterior angle of ramus (first hyoid excursion) Pharyngeal Impairment: Soft Palate Elevation: 0=No bolus between soft palate (SP)/pharyngeal wall (PW) Pharyngeal Impairment: Laryngeal Elevation: 0=Complete superior movement of thyroid cartilage (see description) Pharyngeal Impairment: Anterior Hyoid Excursion: 0=Complete anterior movement Pharyngeal Impairment: Epiglottic Movement: 1=Partial inversion Pharyngeal Impairment: Laryngeal Vestibular Closure:: 0=Complete: no air/contrast in laryngeal vestibule Pharyngeal Impairment: Pharyngeal Stripping Wave: 0=Present: complete Pharyngeal Impairment: Pharyngeal Contraction: Did not test Pharyngeal Impairment: Pharyngoesophageal Segment Openin=Partial distention/partial duration: partial obstruction of flow Pharyngeal Impairment: Tongue Base (TB) Retraction: 1=Trace column of contrast/air between TB and posterior PW Pharyngeal Impairment: Pharyngeal Residue: 2=Collection of residue within or on pharyngeal structures Pharyngeal Impairment: Esophageal Clearance Upright Position: Did not test Impressions and Recommendations OBJECTIVE: Time-out: performed at 15:00 Evaluation Start: 14:45; Stop: 14:50 Patient Positioning: Standing Viewing Planes: LATERAL & OBLIQUE Contrast: MBSImP? Standardized Protocol using commercially prepared, standardized Barium viscosities, including: Varibar? THIN LIQUID (40% w/v, <15 cps) , Varibar? PUDDING (40% w/v, <1638-9511 cps) , 1/2 Shortbread Cookie (1 x1 x.25 ) [facility] ID: [id number] [facility] Results: Lip closure for intraoral bolus containment resulted in no labial escape. Tongue control during bolus hold maintained a cohesive bolus held between tongue to palate seal. Bolus preparation and mastication resulted in timely and efficient chewing and mashing. Bolus transport/lingual motion was with brisk tongue motion. Oral residue was a trace, lining oral structures. Initiation of the pharyngeal swallow occurred as the bolus head reached the posterior angle of the mandibular ramus. Soft palate elevation resulted in no bolus between the soft palate and the pharyngeal wall. Laryngeal elevation demonstrated complete superior movement of the thyroid cartilage with complete approximation of the arytenoids to the epiglottic petiole. Anterior hyoid excursion demonstrated complete anterior movement. Epiglottic movement resulted in partial inversion. Laryngeal vestibular closure was complete, as indicated by no air or contrast within the laryngeal vestibule at the height of the swallow. Pharyngeal stripping wave was present and complete. Pharyngeal contraction could not be determined due to logistical reasons not related to physiologic impairment. Pharyngoesophageal segment opening demonstrated partial distension/partial duration, with partial obstruction of bolus flow. Tongue base retraction allowed a trace column of contrast or air between the retracted tongue base and the posterior pharyngeal wall. Pharyngeal residue was a collection of residue within or on pharyngeal structures. Esophageal clearance in the upright position could not be assessed due to logistical reasons not related to physiologic impairment. Oral Impairment Score: 0 Pharyngeal Impairment Score: 4 (absence of score, component 13) Esophageal Impairment Score: --- (absence of score, component 17) Laryngeal Penetration and Aspiration: Neither penetration nor aspiration was observed in today's study with Cookie, Pudding-thick, Thin. ASSESSMENT: Clinician Assessment: This exam was performed by the radiologist and the speech pathologist. Patient was standing for lateral and oblique views. He fed himself independently without difficulty and trialed the following consistencies: -Thin liquid (via individual cup sips) -Puree (mixture applesauce w/ barium pudding) -Regular solid (shortbread cookies coated w/ barium pudding) -Whole barium tablet w/ sips of water Note good lip closure with no labial escape. Good tongue control, patient maintained cohesive bolus with no premature posterior spillage from the oral cavity. Mastication was intact, characterized by timely and efficient rotary chewing pattern. Posterior bolus transport was timely in initiation with brisk lingual motion. Pharyngeal swallow trigger was timely. Post-swallow, there was trace residue coating the tongue blade and floor of mouth, which cleared with cued secondary swallows. No evidence of nasopharyngeal reflux. Complete laryngeal elevation, with complete anterior hyoid excursion, partial epiglottic inversion and complete laryngeal vestibular closure. No evidence of aspiration or penetration on trials of solids and liquids. There was mild pharyngeal residue seen: -Thin liquid: Minimal pooling in the valleculae and pyriforms, with coating of the posterior pharyngeal wall, which cleared on a cued dry swallow. -Puree: Increased residue collection, though it was still minimal, in the vallleculae and mostly in the pyriforms. Multiple dry swallows, as cued by NURSING ADMINISTRATOR, cleared residuals. Chin tuck had no significant effect in clearing residue. -Regular solid: At times complete pharyngeal clearance seen, on other presentations, minimal residue collected in the vallecuale and pyriforms and cleared with a cued dry swallow. Note partial distention/partial obstruction of flow through the pharyngoesophageal segment opening. There was very brief hang up of the barium tablet above the PES, which then passed freely through the pharynx and esophagus with additional sips of water. The following compensatory strategies have not been used until today's study, but when employed, improved swallowing function: Additional Swallow(s) per Bolus eliminated Pharyngeal Residue Liquid Intake Recommendation: Thin Dietary Recommendations: Regular Medication Administration: Whole with Liquid Please contact the pharmacy regarding appropriate crushable or liquid drug formulations that are available whenever modified delivery is recommended. Compensatory Strategies Recommended: Sitting Upright (90 deg), Double Swallow, Small Bites and Sips, Alternate Liquids/Solids, Rate of Ingestion Change Supervision during eating and or drinking: None Needed Recommended Treatments: Compens. Strategy Educat. Recommendation for Speech Therapy: Outpatient Speech Therapy Text Comment: Intake Recommendations: Route: PO Diet Grade: Regular Liquid Consistencies: Thin Post-Study Functional Oral Intake Scale (FOIS): 7- Total oral intake with no restrictions Oral phase was unremarkable. Pharyngeal phase marked by partial epiglottic inversion contributing to vallecular retention and partial distention/obstruction of flow through the PES contributing to residue collection in the pyriforms. Patient was able to effectively clear residue with dry swallows, for which he was verbally cued during this exam. Patient was able to swallow whole barium tablet with water. Transient holdup in the pharynx but tablet cleared with subsequent sips of water. Patient reported lingering globus sensation after clearing the tablet, stating, ?I can still feel it in my throat,? though imaging showed clearance of the tablet through the pharynx and esophagus. Suggested Referrals: The patient might benefit from a referral to: Gastroenterology Indication for Referral: Partial distention/obstruction of flow through the PES; evaluate candidacy for potential upper endoscopy Therapy Recommendations: Recommend 1-2 follow-up visits with a speech pathologist to review MBSS findings and train compensatory strategies for improved pharyngeal clearance (dry swallows between bites, alternate bites of solids with sips of liquid, remain upright during PO intake and for at least 30 minutes afterwards). Patient is recommended unmodified textures REGULAR solids and THIN liquids. Pills to be taken one at a time with multiple sips of liquid. Advised patient to consult with Pharmacy as to which pills can be crushed, as his preference is to crush larger pills. The following compensatory strategies and/or therapeutic exercises will be part of the upcoming therapy/management plan: Additional Swallow(s) per Bolus Mcfp Goals: ? The patient and/or family will participate in further education for swallowing goals. Short Term Goals: ? Guidelines - The patient will comply with/recall the following guidelines/strategies 100% of the time with no cuing: Bolus Volume Change, Rate of Ingestion Change, Additional Swallow(s) per Bolus. ? Education - The patient will verbalize/demonstrate understanding of the results of this evaluation, the above recommendations, and the swallowing guidelines. Clinician - Supplemental, Miscellaneous Communication: It is important to note MBSS objective studies are snapshots in time and Patient function might vary with factors such as time of day or concomitant medical conditions. For this reason, the final treatment plan for this patient should rest with their medical care team. Additional recommendations should be considered with the totality of the Patient in mind. Thank for the opportunity to participate in the care of this patient. If you have any questions about the content of this report, please contact the [facility] at [facility]. Education: Education regarding findings from today's study and plans for therapy were provided to Patient only through Verbal Instruction. Understanding was expressed by the Patient only. Frequency/Duration: 1-2 f/u Date Range for Service Requested: Timeline to reassess: PRN [employer] Appliance Servicer Clinician/Clinical Fellow: No Supervisory Statement: N/A Speech Language Pathologist: Monserrat Broderick M.A., CCC-NURSING ADMINISTRATOR
== END 2025-04-13 14:11 | disposition home or self-care (01) ==
LOC: HO.XRAY 14:10
PROVIDERS: PCP Pediatrics; Visit Provider Nurse Practitioner Family
DX: R13.10 Dysphagia, unspecified (principal)
CPT/HCPCS: 74230; 92611

== ENCOUNTER → 2025-04-13 14:13 | Outpatient (BNV) | payer MEDICARE, MEDICAID, SELFPAY | PROVIDERS: PCP Pediatrics; Visit Provider Radiology Diagnostic Radiology | DX: R13.10 Dysphagia, unspecified (principal) | CPT/HCPCS: 74230 ==